=== PATIENT | female | born 1960 | race Two or more races ===

== ENCOUNTER 2016-06-10 17:25 | Emergency (ER) | payer MEDICARE, MEDICAID ==
--- NOTE | 2016-06-10 18:00 | ER Document Report ---
ED Medical Screen (RME) - General Stated Complaint: ABDOMINAL PAIN Mode of Arrival: Ambulatory Information source: Patient Notes: Patient presents complaining of left lower quadrant abdominal pain for the past 4 days. Patient does have nausea. Patient's had a fever of 101 at home. Patient was sent here to rule out diverticulitis. hx: Constipation, leukopenia, left-sided mastectomy I have greeted and performed a rapid initial assessment of this patient. A comprehensive ED assessment and evaluation of the patient, analysis of test results and completion of the medical decision making process will be conducted by additional ED providers. TRAVEL OUTSIDE OF THE [place] IN LAST 30 DAYS: No - Related Data Allergies/Adverse Reactions: iodine [Iodine] Allergy (Severe, Verified 04/27/16 13:58) Shortness of Breath Shellfish * [Shellfish] Allergy (Severe, Verified 04/27/16 13:58) Shortness of Breath levocetirizine [Levocetirizine] Allergy (Verified 04/27/16 13:58) lorazepam [From Ativan] Adverse Reaction (Severe, Verified 04/27/16 13:58) confused hydrocodone bitartrate [From Vicodin] Adverse Reaction (Verified 04/27/16 13:58) confused n and v Past Medical History - Past Medical History Cardiac Medical History: Reports: Hx Hypertension Denies: Hx Heart Attack Pulmonary Medical History: Reports: Hx COPD Denies: Hx Asthma, Hx Bronchitis, Hx Pneumonia Neurological Medical History: Denies: Hx Seizures Endocrine Medical History: Denies: Hx Diabetes Mellitus Type 2 Malignancy Medical History: Reports: Hx Breast Cancer Musculoskeltal Medical History: Denies Hx Arthritis Psychiatric Medical History: Reports: Hx Depression Past Surgical History: Reports: Hx Breast Surgery - L mastectomy, Hx Orthopedic Surgery - left knee - Immunizations Hx Diphtheria, Pertussis, Tetanus Vaccination: No Physical Exam - Vital signs Vitals: Temp Pulse Resp BP Pulse Ox 98.1 F 84 20 116/69 97 06/10/16 17:36 06/10/16 17:36 06/10/16 17:36 06/10/16 17:36 06/10/16 17:36 - Abdominal Tenderness: Tender - Left lower quadrant Course - Vital Signs Vital signs: Temp Pulse Resp BP Pulse Ox 98.1 F 84 20 116/69 97 06/10/16 17:36 06/10/16 17:36 06/10/16 17:36 06/10/16 17:36 06/10/16 17:36
[2016-06-10] MEDS ORDERED: ONDANSETRON 4 MG TAB.RAPDIS PO ONE (18:01)
[2016-06-10 18:54] LABS: ABSOLUTE EOSINOPHILS # (AUTO) 0.1 10^3/uL (0.0-0.6); ABSOLUTE LYMPHOCYTES (AUTO) 0.7 10^3/uL (0.5-4.7); ABSOLUTE MONOCYTES (AUTO) 0.5 10^3/uL (0.1-1.4); ABSOLUTE NEUT (AUTO) 3.3 10^3/uL (1.7-8.2); BASOPHILS % (AUTO) 0.2 % (0-2); EOSINOPHILS % (AUTO) 1.4 % (0-6); HEMATOCRIT 38.2 % (36.0-47.0); HEMOGLOBIN 12.4 g/dL (12.0-15.5); MEAN CORPUSCULAR HEMOGLOBIN 29.8 pg (27.0-33.4); MEAN CORPUSCULAR HGB CONC 32.4 g/dL (32.0-36.0); MEAN CORPUSCULAR VOLUME 92 fl (80-97); MONOCYTES % (AUTO) 9.8 % (3-13); RED BLOOD COUNT 4.15 10^6/uL (3.72-5.28); RED CELL DISTRIBUTION WIDTH 12.9 % (11.5-14.0); SEGMENTED NEUTROPHILS % (AUTO) 72.6 % (42-78); WHITE BLOOD COUNT 4.6 10^3/uL (4.0-10.5)
[2016-06-10 19:14] LABS: ALANINE AMINOTRANSFERASE 45 U/L (9-52); ALBUMIN 3.5 g/dL (3.5-5.0); ALKALINE PHOSPHATASE 124 U/L (38-126); ANION GAP 8 (5-19); ASPARTATE AMINO TRANSFERASE 29 U/L (14-36); BILIRUBIN,TOTAL 0.4 mg/dL (0.2-1.3); BLOOD UREA NITROGEN 8 mg/dL (7-20); CALCIUM 8.9 mg/dL (8.4-10.2); CARBON DIOXIDE 30 mmol/L (22-30); CHLORIDE 100 mmol/L (98-107); CREATININE RESULT 0.55 mg/dL (0.52-1.25); GLUCOSE 78 mg/dL (75-110); LIPASE 40.3 U/L (23-300); SODIUM 138.2 mmol/L (137-145); TOTAL PROTEIN 6.4 g/dL (6.3-8.2)
[2016-06-10] MEDS ORDERED: FENTANYL CITRATE INJ/PF 100 MCG/2 ML AMPUL IV ONE (20:06)
--- NOTE | 2016-06-10 20:43 | ER Document Report ---
ED GI/ - General Mode of Arrival: Ambulatory Information source: Patient TRAVEL OUTSIDE OF THE [place] IN LAST 30 DAYS: No - HPI Patient complains to provider of: Other - see narrative Location: [facility] Associated symptoms: Other - see narrative <FRANK PFEIFFER - Last Filed: 06/10/16 23:14> <EUSEBIA AGUAYO - Last Filed: 06/12/16 01:29> - General Chief Complaint: Abdominal Pain Stated Complaint: ABDOMINAL PAIN Notes: Patient is a 55-year-old female that presents to the emergency department today with complaints of left-sided abdominal pain. Patient states she was referred here from her manager purchasing, Dr. Soriano, for concerns for a flareup of her diverticulitis. Patient states she frequently makes homemade grapefruit juice and she believes she might have eaten some seeds from the grapefruit by accident. Patient states her highest fever over the last few days was 101 F. Patient states she has had left-sided abdominal pain for 5 days. Patient states she is constipated frequently and currently is now. Patient also states she has had vaginal discharge. Patient denies any vomiting, diarrhea, or blood in her urine. (FRANK PFEIFFER) - Related Data Allergies/Adverse Reactions: iodine [Iodine] Allergy (Severe, Verified 06/10/16 18:00) Shortness of Breath Shellfish * [Shellfish] Allergy (Severe, Verified 06/10/16 18:00) Shortness of Breath levocetirizine [Levocetirizine] Allergy (Verified 06/10/16 18:00) lorazepam [From Ativan] Adverse Reaction (Severe, Verified 06/10/16 18:00) confused hydrocodone bitartrate [From Vicodin] Adverse Reaction (Verified 06/10/16 18:00) confused n and v Past Medical History - General Information source: Patient, [facility] Records - Social History Smoking Status: Never Smoker Chew tobacco use (# tins/day): No Frequency of alcohol use: None Drug Abuse: None Lives with: Family Family History: Reviewed & Not Pertinent, CVA, DM, Hypertension, Malignancy - Uterus Patient has suicidal ideation: No Patient has homicidal ideation: No - Past Medical History Cardiac Medical History: Reports: Hx Hypertension Pulmonary Medical History: Reports: Hx COPD Malignancy Medical History: Reports: Hx Breast Cancer Psychiatric Medical History: Reports: Hx Depression Past Surgical History: Reports: Hx Breast Surgery - L mastectomy, Hx Orthopedic Surgery - left knee - Immunizations Hx Diphtheria, Pertussis, Tetanus Vaccination: No Hx Pneumococcal Vaccination: 05/25/00 <FRANK PFEIFFER - Last Filed: 06/10/16 23:14> Review of Systems - Review of Systems Constitutional: No symptoms reported EENT: No symptoms reported Cardiovascular: No symptoms reported Respiratory: No symptoms reported Gastrointestinal: See HPI, Abdominal pain, Nausea. denies: Diarrhea, Vomiting Genitourinary: See HPI, Discharge Female Genitourinary: No symptoms reported Musculoskeletal: No symptoms reported Skin: No symptoms reported Hematologic/Lymphatic: No symptoms reported Neurological/Psychological: No symptoms reported -: Yes All other systems reviewed and negative <FRANK PFEIFFER - Last Filed: 06/10/16 23:14> Physical Exam - Genitourinary External exam: Normal Biman[place] exam: Adnexal tenderness - left sided <FRANK PFEIFFER - Last Filed: 06/10/16 23:14> <EUSEBIA AGUAYO - Last Filed: 06/12/16 01:29> - Vital signs Vitals: Temp Pulse Resp BP Pulse Ox 98.1 F 84 20 116/69 97 06/10/16 17:36 06/10/16 17:36 06/10/16 17:36 06/10/16 17:36 06/10/16 17:36 (FRANK PFEIFFER) (EUSEBIA AGUAYO) - Notes Notes: Physical Exam: General: Alert, appears uncomfortable secondary to pain. HEENT: Normocephalic. Atraumatic. PERRL. Extraocular movements intact. Oropharynx clear. Neck: Supple. Non-tender. Respiratory: No respiratory distress. Clear and equal breath sounds bilaterally. Cardiovascular: Regular rate and rhythm. Abdominal: Left sided abdominal tenderness with palpation. No distension. Normal Bowel Sounds. Back: Non-tender. No deformity or step off. Extremities: Moves all four extremities. Upper extremities: Normal inspection. Non-tender. Normal color. Normal ROM. Normal temperature. Lower extremities: Normal inspection. Non-tender. No edema. Normal color. Normal ROM. Normal temperature. Neurological: Normal cognition. AAOx4. Normal speech. Psychological: Normal affect. Normal Mood. Skin: Warm. Dry. Normal color. (FRANK PFEIFFER) Course - Laboratory Result Diagrams: 06/10/16 18:40 06/10/16 18:40 <FRANK PFEIFFER - Last Filed: 06/10/16 23:14> - Laboratory Result Diagrams: 06/10/16 18:40 06/10/16 18:40 <EUSEBIA AGUAYO - Last Filed: 06/12/16 01:29> - Re-evaluation Re-evalutation: 06/10/16 23:43 I personally performed the services described in the documentation, reviewed and edited the documentation which was dictated to my scribe in my presence, and it accurately records my words and actions. Patient presents emergency from left lower quadrant abdominal pain. She has a history of irritable bowel syndrome and diverticulitis seen and evaluated at the manager purchasing office today and sent over for evaluation of left lower quadrant pain. She is cause intermittent fevers for a couple days with her really only 100.4 afebrile here left lower quadrant abdominal tenderness. Also describes some pain in what she calls her ovary on the left. Says she has not seen an [employer] physician in years. On examination left lower quadrant abdominal tenderness without guarding rebound rigidity on pelvic examination exquisite tenderness when palpating the left adnexa. No vaginal bleeding or discharge. The complete resolution of her pain with IV pain medication. She'll abdominal examinations no acute guarding rebound rigidity no elevated white count and no fever pelvic ultrasound cannot see the ovaries don't see anything and then a small fibroid. CT scan shows diverticulitis. Patient will be discharged home pain and nausea medication she has multiple allergies and says pain medication gives her itching headaches or nausea. She lists Vicodin as one of her allergies but states that she can take it just causes a headache but she is rather have a headache and abdominal pain so she agreed to take the night overrode on the computer. Also gave her nausea medication Flagyl follow-up with her GI doctor in one to 2 days and give her outpatient follow-up for [employer] discussed reasons for ED return sooner (EUSEBIA AGUAYO) - Vital Signs Vital signs: Temp Pulse Resp BP Pulse Ox 98.2 F 76 18 110/62 99 06/11/16 00:15 06/11/16 00:15 06/11/16 00:15 06/11/16 00:15 06/11/16 00:15 (FRANK PFEIFFER) (EUSEBIA AGUAYO) - Laboratory Laboratory results interpreted by me: 06/10/16 20:00 Urine Ketones TRACE H Ur Leukocyte Esterase TRACE H Urine Ascorbic Acid 20 H (EUSEBIA AGUAYO) Discharge <FRANK PFEIFFER - Last Filed: 06/10/16 23:14> <EUSEBIA AGUAYO - Last Filed: 06/12/16 01:29> - Discharge Clinical Impression: Pelvic pain Diverticulitis Qualifiers: Diverticulitis site: unspecified part of intestinal tract Diverticulitis bleeding: without bleeding Diverticulitis complication: without perforation or abscess Qualified Code(s): K57.92 - Diverticulitis of intestine, part unspecified, without perforation or abscess without bleeding Condition: Stable Disposition: HOME, SELF-CARE Additional Instructions: Diverticulitis You have been diagnosed as having diverticulitis. This is an inflammation of a small pouch attached to the colon, called a diverticulum. Many of these small pouches can form on the colon as you get older. They are often caused by constipation. When inflamed or infected, symptoms arise -- usually abdominal pain, constipation or diarrhea, fever, and blood in the stool. Severe diverticulitis may require hospitalization. More mild cases are usually treated with antibiotics and clear liquid diet. As you improve, a diet low in residue (one which forms little stool) is prescribed. When you are better, you should eat a high-fiber diet. Stool softeners ( like Metamucil) are usually recommended. Call the doctor or go to the hospital if there is increasing pain, vomiting , high fever, large amounts of blood passed, or if bowel movements cease. Pelvic Pain There are many causes of pain in the pelvic area. The cause could be the tubes, ovaries, uterus, intestines, appendix, pelvic muscles and connective tissue, or the urinary tract. The cause of your pelvic pain is not clear. However, it seems safe to treat you outside the hospital. If the pain sounds like a temporary problem, we sometimes wait to see if it goes away. Other patients may need additional tests, such as pelvic ultrasound or cultures. Conditions may change. Call us or come back for reexamination if any problems occur, such as: (1) Pain that becomes more severe, steady, or becomes concentrated in one specific area. Also, pain that is more severe with movement or coughing. (2) Vomiting that persists or becomes more frequent. (3) Blood in the vomitus, urine, or bowel movements. Blood in the stool may have a tarry or black appearance. (4) Shaking chills or fever greater than 100 degrees. (5) The abdomen becomes more distended or swollen. (6) Bowel movements cease. (7) Heavy vaginal bleeding. Follow-up with your GI doctor in one to 2 days return for increasing worsening or new symptoms also call the [employer] physician tomorrow to be seen in 3-5 days. Prescriptions: Hydrocodone/Acetaminophen [Ferguson 10-325 mg Tablet] 1 tab PO Q6 #15 tablet Metronidazole [Flagyl 500 mg Tablet] 500 mg PO Q6H #28 tablet Ondansetron [Zofran Odt 4 mg Tablet] 1 - 2 tab PO Q4H PRN #15 tab.rapdis PRN Reason: For Nausea/Vomiting Referrals: EMILY HELTON MD [ACTIVE STAFF] - Follow up in 3-5 days (Call in a.m. to be seen in 2-3 days return for increasing worsening or new symptoms) Scribe Documentation - Scribe Written by Aisha:: Aisha Laguerre, [id number] 06/10/16 acting as scribe for :: Moody <FRANK PFEIFFER - Last Filed: 06/10/16 23:14>
[2016-06-10 20:49] LABS: APPEARANCE,URINE CLEAR; BILIRUBIN,URINE NEGATIVE (NEGATIVE); GLUCOSE, URINE NEGATIVE (NEGATIVE); KETONES,URINE TRACE mg/dL (NEGATIVE); LEUKOCYTE ESTERASE,URINE TRACE (NEGATIVE); NITRITE,URINE NEGATIVE (NEGATIVE); PROTEIN,URINE NEGATIVE (NEGATIVE); URINE SPECIFIC GRAVITY 1.013; UROBILINOGEN,URINE NEGATIVE mg/dL (<2.0)
[2016-06-10] MEDS ORDERED: HYDROCODONE/ACETAMINOPHEN 5-325 MG TABLET PO ONE (23:31)
[2016-06-11 00:17] VITALS: BP 110/62
== END 2016-06-11 00:17 | disposition home or self-care (01) ==
LOC: ER 17:25
DX: K57.92 Diverticulitis of intestine, part unspecified, without perforation or abscess without bleeding (principal); R10.2 Pelvic and perineal pain; K59.00 Constipation, unspecified; R10.32 Left lower quadrant pain; R10.814 Left lower quadrant abdominal tenderness; N89.8 Other specified noninflammatory disorders of vagina; I10 Essential (primary) hypertension; J44.9 Chronic obstructive pulmonary disease, unspecified; Z85.3 Personal history of malignant neoplasm of breast; R11.0 Nausea; Z88.3 Allergy status to other anti-infective agents; Z91.013 Allergy to seafood; Z88.8 Allergy status to other drugs, medicaments and biological substances; Z87.19 Personal history of other diseases of the digestive system
CPT/HCPCS: 99284; 36415; 83690; 85025; 80053; 81001; 76830; 74176; A9270 ×2; J3010; 87040; S0119

== ENCOUNTER → 2016-06-25 | Outpatient (CLI) | payer MEDICARE, MEDICAID | LOC: RAD 19:37 | PROVIDERS: ATTEND Internal Medicine | DX: R51 Headache (principal); H93.19 Tinnitus, unspecified ear; H91.90 Unspecified hearing loss, unspecified ear | CPT/HCPCS: 70551 ==

== ENCOUNTER → 2016-10-06 | Outpatient (CLI) | payer MEDICARE, MEDICAID | LOC: WI 14:03 | PROVIDERS: ATTEND Internal Medicine Medical Oncology | DX: Z12.31 Encounter for screening mammogram for malignant neoplasm of breast (principal) | CPT/HCPCS: G0202-52 ==

== ENCOUNTER 2016-10-21 08:32 | Emergency (ER) | payer MEDICARE, MEDICAID ==
[2016-10-21] MEDS ORDERED: NORMAL SALINE 1000 ML 1,000 ML IV ONE (09:29)
[2016-10-21] MEDS ORDERED: ONDANSETRON HCL INJ/PF 4 MG/2 ML SDV IV ONE (09:29)
--- NOTE | 2016-10-21 09:33 | ER Document Report ---
ED General - General Chief Complaint: Nausea/Vomiting Stated Complaint: VOMITING/DIZZY Time Seen by Provider: 10/21/16 09:25 Mode of Arrival: Ambulatory Information source: Patient Notes: This is a 56-year-old female with a past medical history of breast cancer status post mastectomy and chemo/radiation 3 years ago who presents for complaints of nausea vomiting. She states that for the past 3 days she has had nausea and vomiting. She had her regular scheduled appointment this morning with and was noted to be weak and dry heaving in the office and so she was sent to the emergency department for possible IV fluids. Patient denies any fevers but she has had some diaphoresis intermittently over the past few days. She has had no diarrhea in fact she reports chronic constipation and her last bowel movement was last week. TRAVEL OUTSIDE OF THE [place] IN LAST 30 DAYS: No - Related Data Allergies/Adverse Reactions: iodine [Iodine] Allergy (Severe, Verified 06/10/16 18:00) Shortness of Breath Shellfish * [Shellfish] Allergy (Severe, Verified 06/10/16 18:00) Shortness of Breath levocetirizine [Levocetirizine] Allergy (Verified 06/10/16 18:00) lorazepam [From Ativan] Adverse Reaction (Severe, Verified 06/10/16 18:00) confused hydrocodone bitartrate [From Vicodin] Adverse Reaction (Verified 06/10/16 18:00) confused n and v Past Medical History - Social History Smoking Status: Unknown if Ever Smoked Family History: Reviewed & Not Pertinent, CVA, DM, Hypertension, Malignancy - Uterus Patient has suicidal ideation: No Patient has homicidal ideation: No - Past Medical History Cardiac Medical History: Reports: Hx Hypertension Denies: Hx Heart Attack Pulmonary Medical History: Reports: Hx COPD Denies: Hx Asthma, Hx Bronchitis, Hx Pneumonia Neurological Medical History: Denies: Hx Seizures Endocrine Medical History: Denies: Hx Diabetes Mellitus Type 2 Renal/ Medical History: Denies: Hx Peritoneal Dialysis Malignancy Medical History: Reports: Hx Breast Cancer Musculoskeltal Medical History: Denies Hx Arthritis Psychiatric Medical History: Reports: Hx Depression Past Surgical History: Reports: Hx Breast Surgery - L mastectomy, Hx Orthopedic Surgery - left knee - Immunizations Hx Diphtheria, Pertussis, Tetanus Vaccination: No Hx Pneumococcal Vaccination: 05/25/00 Review of Systems - Review of Systems Constitutional: See HPI. denies: Chills, Fever EENT: No symptoms reported Cardiovascular: No symptoms reported. denies: Chest pain Respiratory: No symptoms reported Gastrointestinal: See HPI. denies: Abdominal pain Genitourinary: No symptoms reported Skin: No symptoms reported Hematologic/Lymphatic: No symptoms reported Neurological/Psychological: No symptoms reported Physical Exam - Vital signs Vitals: Temp Pulse Resp BP Pulse Ox 97.7 F 68 16 137/71 H 100 10/21/16 08:39 10/21/16 08:39 10/21/16 08:39 10/21/16 08:39 10/21/16 08:39 - Notes Notes: PHYSICAL EXAMINATION: GENERAL: Thin frail adult female who is pleasant and conversant, and in no acute distress. HEAD: Atraumatic, normocephalic. EYES: Pupils equal round and reactive to light, extraocular movements intact, sclera anicteric, conjunctiva are normal. ENT: nares patent, oropharynx clear without exudates. Moist mucous membranes. NECK: Normal range of motion, supple without lymphadenopathy LUNGS: Breath sounds clear to auscultation bilaterally and equal. No wheezes rales or rhonchi. HEART: Regular rate and rhythm without murmurs ABDOMEN: Soft, nontender, normoactive bowel sounds. No guarding, no rebound. No masses appreciated. EXTREMITIES: Normal range of motion NEUROLOGICAL: Cranial nerves grossly intact. No gross focal motor or sensory deficits appreciated. PSYCH: Normal mood, normal affect. SKIN: Warm, Dry, normal turgor, no rashes or lesions noted. Course - Re-evaluation Re-evalutation: 10/21/16 10:57 Reevaluated. She states that she feels "so much better". We discussed her lab results and she is comfortable with discharge home. She will follow up with her primary care physician in her [employer] as scheduled. Return precautions were discussed. - Vital Signs Vital signs: Temp Pulse Resp BP Pulse Ox 97.7 F 68 16 137/71 H 100 10/21/16 08:39 10/21/16 08:39 10/21/16 08:39 10/21/16 08:39 10/21/16 08:39 - Laboratory Result Diagrams: 10/21/16 09:47 10/21/16 09:47 Laboratory results interpreted by me: 10/21/16 10/21/16 09:47 09:47 WBC 2.5 L Monocytes % 16.4 H Absolute Neutrophils 1.1 L Potassium 5.1 H Discharge - Discharge Clinical Impression: Dehydration Nausea & vomiting Qualifiers: Vomiting type: unspecified Vomiting Intractability: non-intractable Qualified Code(s): R11.2 - Nausea with vomiting, unspecified Condition: Stable Disposition: HOME, SELF-CARE Additional Instructions: VOMITING: Vomiting (or nausea without vomiting) can be caused by many other different problems. It can mean that something's wrong with the stomach, such as ulcers or inflammation or the intestinal tract, such as appendicitis. But it can also be a symptom of a problem that has nothing to do with the stomach or intestines. Vomiting is common with severe headaches, earaches, tonsillitis, and kidney infections, etc. We see it with pneumonia or heart attacks. Drugs can cause nausea and vomiting. Many abdominal problems cause vomiting; for example, gallstones, kidney stones, pancreatitis, and intestinal obstruction ( blocked bowels). In most cases, curing the vomiting depends on fixing the problem that caused it. For temporary relief, we may use an anti-nausea medicine. For home use, we can prescribe suppositories, chewable pills, pills that dissolve in the mouth, or liquid anti-nausea drugs. If the vomiting seems to be caused by a problem in the stomach, acid-suppressing drugs may be prescribed as well. It's important to avoid dehydration. Sip small amounts of clear liquids ( soft drinks, tea, broth, etc) . Try to take fluids frequently even if you are vomiting to prevent dehydration. Take increasing amounts of fluid and when liquids are being consumed successfully, advance to small amounts of bland food (toast, soups, mashed potatoes, etc.) until you are able to resume a regular diet. Avoid aspirin, tobacco, and alcohol. If the vomiting worsens, if the problem that's making you vomit worsens, or if there's evidence of bleeding in the stomach (such as black, tarry stool, or bloody or black vomit), you should return immediately. Also, return if abdominal pain worsens or becomes localized to one area or you develop high fever. Call your doctor if you aren't improved in 24 hours. VIRAL SYNDROME: The physician has diagnosed a viral infection. Viruses not only cause "colds," but can cause many different symptoms including generalized aching, fever, headache, cough, diarrhea, nausea, vomiting, and fatigue. The treatment, for the most part, is simply relief of symptoms. This means that antibiotics are usually not given. Rest, fluids, pain medications and, occasionally, medication for the specific symptoms that are most bothersome will be prescribed. Use good handwashing to avoid passing the virus to others. Shared toys should be cleaned with disinfectant. Clean the toilets, sinks, and counter surfaces in bathrooms. Launder clothing in hot water. Contact the physician if you develop any new or unusual symptoms such as severe headache, stiff neck, high fever, chest pain, productive cough, or shortness of breath. You should be rechecked if you don't see marked improvement within seven to 10 days. INTRAVENOUS (I V) FLUIDS: As part of your care today, you received intravenous (IV) fluids. IV fluids are administered to patients who are dehydrated or to those who have certain chemical (electrolyte) abnormalities that need correcting. ANTINAUSEA MEDICATION: You have been given a medication to suppress nausea and vomiting. This type of medication can be given as a shot, pill, or suppository. It will usually last for many hours. Pills and shots usually last six to eight hours. For the typical illness, only one or two doses of the medication may be necessary. Mild lightheadedness may occur. This type of medicine can cause drowsiness. Do not drive or operate dangerous machinery while under its influence. Do not mix with alcohol. See your doctor at once if you have muscle spasms or tightness, or uncontrollable motions (particularly of the neck, mouth, or jaw). Persistent vomiting or severe lightheadedness should also be evaluated by the physician. FOLLOW-UP CARE: If you have been referred to a physician for follow-up care, call the physician s office for an appointment as you were instructed or within the next two days. If you experience worsening or a significant change in your symptoms, notify the physician immediately or return to the Emergency Department at any time for re-evaluation.
[2016-10-21 09:50] LABS: ABSOLUTE EOSINOPHILS # (AUTO) 0.1 10^3/uL (0.0-0.6); ABSOLUTE LYMPHOCYTES (AUTO) 0.9 10^3/uL (0.5-4.7); ABSOLUTE MONOCYTES (AUTO) 0.4 10^3/uL (0.1-1.4); ABSOLUTE NEUT (AUTO) 1.1 10^3/uL (1.7-8.2); BASOPHILS % (AUTO) 0.9 % (0-2); EOSINOPHILS % (AUTO) 3.7 % (0-6); HEMATOCRIT 43.3 % (36.0-47.0); HEMOGLOBIN 14.4 g/dL (12.0-15.5); HGB HCT DIFFERENCE -0.1; LYMPHOCYTES % (AUTO) 34.2 % (13-45); MEAN CORPUSCULAR HGB CONC 33.2 g/dL (32.0-36.0); MEAN CORPUSCULAR VOLUME 91 fl (80-97); MONOCYTES % (AUTO) 16.4 % (3-13); RED BLOOD COUNT 4.79 10^6/uL (3.72-5.28); RED CELL DISTRIBUTION WIDTH 13.7 % (11.5-14.0); SEGMENTED NEUTROPHILS % (AUTO) 44.8 % (42-78); WHITE BLOOD COUNT 2.5 10^3/uL (4.0-10.5)
[2016-10-21 10:15] LABS: ALANINE AMINOTRANSFERASE 33 U/L (9-52); ALBUMIN 4.5 g/dL (3.5-5.0); ALKALINE PHOSPHATASE 107 U/L (38-126); ANION GAP 11 (5-19); ASPARTATE AMINO TRANSFERASE 22 U/L (14-36); BILIRUBIN,DIRECT 0.2 mg/dL (0.0-0.4); BILIRUBIN,TOTAL 0.6 mg/dL (0.2-1.3); BLOOD UREA NITROGEN 10 mg/dL (7-20); CARBON DIOXIDE 29 mmol/L (22-30); CHLORIDE 102 mmol/L (98-107); CREATININE RESULT 0.59 mg/dL (0.52-1.25); GLUCOSE 100 mg/dL (75-110); POTASSIUM 5.1 mmol/L (3.6-5.0); TOTAL PROTEIN 7.8 g/dL (6.3-8.2)
[2016-10-21 10:41] LABS: APPEARANCE,URINE CLEAR; BILIRUBIN,URINE NEGATIVE (NEGATIVE); GLUCOSE, URINE NEGATIVE (NEGATIVE); KETONES,URINE NEGATIVE (NEGATIVE); LEUKOCYTE ESTERASE,URINE NEGATIVE (NEGATIVE); NITRITE,URINE NEGATIVE (NEGATIVE); PROTEIN,URINE NEGATIVE (NEGATIVE); URINE SPECIFIC GRAVITY 1.017; UROBILINOGEN,URINE NEGATIVE mg/dL (<2.0)
[2016-10-21 11:10] VITALS: BP 113/62
== END 2016-10-21 11:10 | disposition home or self-care (01) ==
LOC: ER 08:32
DX: E86.0 Dehydration (principal); R11.2 Nausea with vomiting, unspecified; I10 Essential (primary) hypertension; J44.9 Chronic obstructive pulmonary disease, unspecified; Z85.3 Personal history of malignant neoplasm of breast; Z90.12 Acquired absence of left breast and nipple; Z91.013 Allergy to seafood
CPT/HCPCS: 99284; 96374; 36415; 85025; 80053; 81001; J2405

== ENCOUNTER → 2016-10-30 | Outpatient (CLI) | payer MEDICARE, MEDICAID ==
[2016-10-30 10:22] LABS: HEMATOCRIT 37.3 % (36.0-47.0); HEMOGLOBIN 12.6 g/dL (12.0-15.5); HGB HCT DIFFERENCE 0.5; MEAN CORPUSCULAR HEMOGLOBIN 30.5 pg (27.0-33.4); MEAN CORPUSCULAR HGB CONC 33.8 g/dL (32.0-36.0); MEAN CORPUSCULAR VOLUME 90 fl (80-97); RED BLOOD COUNT 4.13 10^6/uL (3.72-5.28); RED CELL DISTRIBUTION WIDTH 12.8 % (11.5-14.0)
[2016-10-30 10:45] LABS: ANION GAP 8 (5-19); BLOOD UREA NITROGEN 13 mg/dL (7-20); CALCIUM 9.2 mg/dL (8.4-10.2); CARBON DIOXIDE 28 mmol/L (22-30); CHLORIDE 104 mmol/L (98-107); CREATININE RESULT 0.54 mg/dL (0.52-1.25); GLUCOSE 91 mg/dL (75-110); POTASSIUM 4.4 mmol/L (3.6-5.0); SODIUM 140.1 mmol/L (137-145)
--- NOTE | 2016-10-30 11:16 | RADIOLOGY REPORT (SQ) ---
EXAM DESCRIPTION: CT ABD/PELVIS NO ORAL OR IV COMPLETED DATE/TIME: 10/30/2016 10:38 am REASON FOR STUDY: LEFT LOWER QUADRANT PAIN R10.32 LEFT LOWER QUADRANT PAIN R10.814 LEFT LOWER QUAD RANT ABDOMINAL TENDERNESS COMPARISON: 06/10/2016 TECHNIQUE: CT scan of the abdomen and pelvis performed without intravenous or oral contrast. Images reviewed with lung, soft tissue, and bone windows. Reconstructed coronal and sagittal MPR images revi ewed. All images stored on PACS. All CT scanners at this facility use dose modulation, iterative reconstruction, and/or weight based d osing when appropriate to reduce radiation dose to as low as reasonably achievable (ALARA). [facility]: Dose Right [facility]: CareDose [facility]: Dose Right [facility]: Teradose 4D [facility]: [employer] RADIATION DOSE: 2.93mGy. LIMITATIONS: None. FINDINGS: LOWER CHEST: No significant findings. No nodules or infiltrates. NON-CONTRASTED LIVER, SPLEEN, ADRENALS: Evaluation limited by lack of IV contrast. No identified sign ificant masses. PANCREAS: No masses. No peripancreatic inflammatory changes. GALLBLADDER: No identified stones by CT criteria. No inflammatory changes to suggest cholecystitis. RIGHT KIDNEY AND URETER: No suspicious masses. Assessment limited by lack of IV contrast. No signif icant calcifications. No hydronephrosis or hydroureter. LEFT KIDNEY AND URETER: No suspicious masses. Assessment limited by lack of IV contrast. Cortical a nd parapelvic cysts. Nonobstructing calculi. No hydronephrosis or hydroureter. AORTA AND RETROPERITONEUM: No aneurysm. No retroperitoneal masses or adenopathy. BOWEL AND PERITONEAL CAVITY: Subtle inflammation associated with proximal sigmoid colon segment conta ining diverticula, image 61, and series 601, image 28. No ascites or free air. APPENDIX: Not visualized. PELVIS, BLADDER, AND ABDOMINAL WALL:No abnormal masses. No free fluid. Bladder normal. BONES: No significant findings. OTHER: No other significant finding. IMPRESSION: Mild diverticulitis sigmoid colon. TECHNICAL DOCUMENTATION: JOB ID: [id number] Quality ID # [id number]: Final reports with documentation of one or more dose reduction techniques (e.g., Au tomated exposure control, adjustment of the mA and/or kV according to patient size, use of iterative reconstruction technique) 2010 [employer]- All Rights Reserved
== END ==
LOC: RAD 09:56
PROVIDERS: ATTEND Internal Medicine Gastroenterology
DX: R10.814 Left lower quadrant abdominal tenderness (principal); R10.32 Left lower quadrant pain; K57.30 Diverticulosis of large intestine without perforation or abscess without bleeding
CPT/HCPCS: 36415; 74176; 80048; 85027

== ENCOUNTER 2016-11-06 07:32 | Day surgery (SDC) | payer MEDICARE, MEDICAID ==
--- NOTE | 2016-10-28 10:57 | RADIOLOGY REPORT (SQ) ---
EXAM DESCRIPTION: CHEST PA/LATERAL COMPLETED DATE/TIME: 10/28/2016 10:46 am REASON FOR STUDY: PRE OP COMPARISON: Two-view chest 04/27/2016 EXAM PARAMETERS: NUMBER OF VIEWS: two views TECHNIQUE: Digital Frontal and Lateral radiographic views of the chest acquired. RADIATION DOSE: NA LIMITATIONS: none FINDINGS: LUNGS AND PLEURA: No opacities, masses or pneumothorax. No pleural effusion. MEDIASTINUM AND HILAR STRUCTURES: No masses or contour abnormalities. HEART AND VASCULAR STRUCTURES: Heart normal size. No evidence for failure. BONES: No acute findings. HARDWARE: Old surgical clips post left mastectomy. OTHER: No other significant finding. IMPRESSION: NO SIGNIFICANT RADIOGRAPHIC FINDING IN THE CHEST. TECHNICAL DOCUMENTATION: JOB ID: [id number] [employer]- All Rights Reserved
[2016-10-28 11:07] LABS: ABSOLUTE EOSINOPHILS # (AUTO) 0.1 10^3/uL (0.0-0.6); ABSOLUTE LYMPHOCYTES (AUTO) 0.8 10^3/uL (0.5-4.7); ABSOLUTE MONOCYTES (AUTO) 0.3 10^3/uL (0.1-1.4); ABSOLUTE NEUT (AUTO) 1.9 10^3/uL (1.7-8.2); BASOPHILS % (AUTO) 0.4 % (0-2); EOSINOPHILS % (AUTO) 2.5 % (0-6); HEMATOCRIT 40.1 % (36.0-47.0); HEMOGLOBIN 13.2 g/dL (12.0-15.5); HGB HCT DIFFERENCE -0.5; LYMPHOCYTES % (AUTO) 24.8 % (13-45); MEAN CORPUSCULAR HEMOGLOBIN 29.8 pg (27.0-33.4); MEAN CORPUSCULAR HGB CONC 32.9 g/dL (32.0-36.0); MEAN CORPUSCULAR VOLUME 90 fl (80-97); MONOCYTES % (AUTO) 10.9 % (3-13); RED BLOOD COUNT 4.44 10^6/uL (3.72-5.28); RED CELL DISTRIBUTION WIDTH 13.6 % (11.5-14.0); SEGMENTED NEUTROPHILS % (AUTO) 61.4 % (42-78); WHITE BLOOD COUNT 3.1 10^3/uL (4.0-10.5)
[2016-10-28 11:12] LABS: AMORPHOUS SEDIMENT,URINE TRACE /HPF; APPEARANCE,URINE CLOUDY; BILIRUBIN,URINE NEGATIVE (NEGATIVE); GLUCOSE, URINE NEGATIVE (NEGATIVE); KETONES,URINE NEGATIVE (NEGATIVE); LEUKOCYTE ESTERASE,URINE NEGATIVE (NEGATIVE); NITRITE,URINE NEGATIVE (NEGATIVE); PROTEIN,URINE NEGATIVE (NEGATIVE); URINE SPECIFIC GRAVITY 1.021; UROBILINOGEN,URINE NEGATIVE mg/dL (<2.0)
[2016-10-28 11:51] LABS: ALANINE AMINOTRANSFERASE 24 U/L (9-52); ALBUMIN 4.1 g/dL (3.5-5.0); ALKALINE PHOSPHATASE 100 U/L (38-126); ANION GAP 7 (5-19); ASPARTATE AMINO TRANSFERASE 24 U/L (14-36); BILIRUBIN,DIRECT 0.2 mg/dL (0.0-0.4); BILIRUBIN,TOTAL 0.3 mg/dL (0.2-1.3); BLOOD UREA NITROGEN 13 mg/dL (7-20); CALCIUM 9.2 mg/dL (8.4-10.2); CARBON DIOXIDE 31 mmol/L (22-30); CHLORIDE 102 mmol/L (98-107); CREATININE RESULT 0.53 mg/dL (0.52-1.25); Direct HDL 73 mg/dL (>40); GLUCOSE 86 mg/dL (75-110); POTASSIUM 4.8 mmol/L (3.6-5.0); SODIUM 140.3 mmol/L (137-145); TOTAL PROTEIN 7.2 g/dL (6.3-8.2); TRIGLYCERIDES 86 mg/dL (<150)
[2016-10-28 12:02] LABS: DIRECT LDL 104 mg/dL (<100)
--- NOTE | 2016-10-28 12:14 | EKG REPORT ---
SEVERITY:- ABNORMAL ECG - SINUS RHYTHM LEFT VENTRICULAR HYPERTROPHY : Confirmed by: Angeline Schulz MD 28-Oct-2016 12:14:18
[~2016-11-06 07:32] MED LIST: ACETAMINOPHEN 100 ML IV ONE; BUPIVACAINE HCL 0.5 % INJ/PF 30 ML SDV ONE; CEFAZOLIN 2 GM/D5W RTU 2 GM/50 ML RTUPB IV PRN; DEXAMETHASONE SOD PHOSPHATE INJ 4 MG/1 ML VIAL ONE; EPINEPHRINE INJ/PF 1 MG/1 ML AMPULE ONE; FENTANYL CITRATE INJ/PF 100 MCG/2 ML AMPUL ONE; FENTANYL CITRATE INJ/PF 250 MCG/5 ML AMPULE ONE; GLYCOPYRROLATE INJ 0.4 MG/2 ML VIAL ONE; KETOROLAC TROMETHAMINE 60 MG/2 ML SDV ONE; LACTATED RINGERS 1000 ML IV PRN; LIDOCAINE 0.5% INJ-PF (5 MG/ML) 50 ML SDV SUBCUT PRN; LIDOCAINE 2% INJ-PF (20 MG/ML) 10 ML AMPUL ONE; MIDAZOLAM 2 MG/2 ML INJ ONE; MORPHINE SULFATE 10 MG/ML INJ ONE; NEOSTIGMINE METHYLSULFATE 10 MG/10 ML VIAL ONE; ONDANSETRON HCL INJ/PF 4 MG/2 ML SDV ONE; PROPOFOL INJ 200 MG/20 ML VIAL IV ONE; ROCURONIUM BROMIDE INJ 50 MG/5 ML VIAL IV ONE; SUCCINYLCHOLINE CHLORIDE INJ 200 MG/10 ML VIAL ONE
--- NOTE | 2016-11-06 10:17 | Operative Report ---
Operative Report DATE OF SURGERY: 11/06/16 PREOPERATIVE DIAGNOSIS: Right full-thickness rotator cuff tear POSTOPERATIVE DIAGNOSIS: Completely intact rotator cuff. Type II SLAP tear. Early arthritic changes of the glenohumeral joint OPERATION: Right shoulder arthroscopic debridement with decompression and subpectoralis biceps tenodesis SURGEON: AYDE HARDIN ANESTHESIA: GA TISSUE REMOVED OR ALTERED: None COMPLICATIONS: None ESTIMATED BLOOD LOSS: 15 mL INTRAOPERATIVE FINDINGS: As above PROCEDURE: Patient received 1 g of IV Ancef. Patient then was taken to the operating room where she was induced and intubated in supine position. Patient then was secured in the beachchair position where the right shoulder was prepped and draped in a normal surgical fashion. Timeout done identifying the right shoulder as the correct site. Spinal needle was used to insert into the glenohumeral joint and I quickly noticed synovial fluid draining from the spinal needle. I then proceeded to distend the capsule with sterile saline solution. 11 blade was used to establish my posterior portal and I introduced the cannula into the glenohumeral joint. Once I got return of fluid I confirm proper placement so I inserted the camera. Under direct visualization I placed a spinal needle marked my anterior portal and used an 11 blade to establish a. I placed a purple cannula and then through the cannula was able to probe and proceed with my diagnostic scope which diffuse grade III chondromalacia humeral cartilage and focal grade III chondromalacia of the glenoid with intact labrum anterior, inferior and posterior. patient had a type II SLAP tear. To my attention to the footprint of the rotator cuff which showed to be intact with no partial tearing. At this point through the anterior portal I use arthroscopic scissors to do a tenotomy of the long head of the biceps at the attachment of the glenoid superiorly. I then used a 4.0 mm shaver to do debridement of the labrum, glenoid, humeral head. I proceeded then to remove fluid from the shoulder joint and redirected my scope into the subacromial space. I then established a lateral portal and between radiofrequency ablator and shaver I did a formal bursectomy. Rotator cuff did not show any bursal sided tear either. I exposed the acromion which showed a spur on the anterolateral edge. I delineated the edge of the acromion with the radiofrequency ablator. I used a 5.5 mm bur then to do a acromioplasty. Pictures were taken showing my resection. Once I was satisfied with my decompression and acromioplasty I proceeded to removed the instruments. A 1 inch incision was done just medial to the axillary fold dissection was done with Metzenbaum scissors and hemostasis was obtained with the Bovie. Able to then cut the fascia overlying the biceps and then hooked the long head of biceps with a 90 clamp. Was able then to use a fiber loop and suture 2 cm from the muscular tendinous junction and cut the remaining tendon. I used 2 Homans to reflect tissue on the side of the humerus. I used a 4 mm spade tip guidepin then to do my proximal cortex drilling into the intramedullary canal of the humerus. I fed the 2 ends of the fiber wire into the biceps tenodesis button as recommended by the manufacturing company. Pulled out the guidepin and then proceeded to insert the button into the intramedullary canal. I was able to successfully flipped the button and after releasing securing the biceps. I used a free needle the comes in the care and pass one of the FiberWire ends through the biceps one more time to further secure it. Once I since the biceps onto the humeral cortex I then proceeded to go several half hitch knots for added fixation. Instruments were removed and used bulb irrigation to wash the tissue. I proceeded to approximate the tissue with 2-0 Vicryl and close the skin with 3-0 nylon. The 2 of the portal sites were closed with 3-0 nylon as well. I placed Xeroform over the incisions and covered it with 4 x 4 dressing and ABD pads. Secured the dressing with Medipore tape. Patient's arm was placed in the sling and the patient then was placed in supine position extubated and sent to PACU in stable condition.
--- NOTE | 2016-11-06 10:20 | PDOC DISCHARGE SUMMARY ---
Discharge Summary (SDC) - Discharge Final Diagnosis: Right shoulder arthroscopic rotator cuff repair Date of Surgery: 11/06/16 Discharge Date: 11/06/16 Condition: Good Treatment or Instructions: Patient is instructed to follow up in 10-14 days. Patient instructed to remove dressing in 4 days then can shower and apply Band- Aids as needed. Patient to wear sling for comfort but okay to remove for shower and pendulum exercises. Pendulum exercises are instructed to be done 3 times a day ideally with breakfast, lunch, dinners and showers. Patient instructed to call if there is any signs of redness or drainage fevers or chills. Prescriptions: Docusate Sodium [Colace 100 mg Capsule] 100 mg PO BID #60 capsule Oxycodone HCl/Acetaminophen [Percocet 5-325 mg Tablet] 1 - 2 tab PO ASDIR PRN # 60 tablet PRN Reason: Referrals: VIDYA FORTUNE MD [Primary Care Provider] - Respiratory Treatments at Home: Deep Breathing/Coughing Discharge Activity: No Driving, No Lifting/Push/Pulling Home Care Assistance: None Needed Report the Following to Your Physician Immediately: Vomiting, Increase in Pain, Fever over 101 Degrees, Unusual Bleeding, Redness, Warmth, Drainage-Yellow, Drainage-Mohr, Drainage-Green, Drainage-Foul Smelling, Numbness, Visual Disturbance
[2016-11-06] MEDS ORDERED: DIPHENHYDRAMINE HCL 50 MG/ML VIAL IV PRN (11:09)
[2016-11-06] MEDS ORDERED: MORPHINE SULFATE 10 MG/ML INJ IV PRN (11:09)
[2016-11-06] MEDS ORDERED: PROMETHAZINE HCL INJ 25 MG/1 ML VIAL IV PRN ×2 (11:09)
[2016-11-06] MEDS ORDERED: FENTANYL CITRATE INJ/PF 100 MCG/2 ML AMPUL IV PRN ×3 (11:09)
[2016-11-06] MEDS ORDERED: MEPERIDINE HCL/PF INJ 25 MG/1 ML DISP.SYRIN IV PRN (11:09)
[2016-11-06] MEDS ORDERED: OXYCODONE-ACETAMINOPHEN 5-325 MG TABLET PO PRN ×2 (12:42)
[2016-11-06 14:28] VITALS: BP 145/84
== END 2016-11-06 14:05 | disposition home or self-care (01) ==
LOC: OROUT 07:32
PROVIDERS: ATTEND Orthopaedic Surgery
PROC: 0RBJ4ZZ Excision of Right Shoulder Joint, Percutaneous Endoscopic Approach (ICD-10-PCS; 2016-11-06)
PROC: 0LM30ZZ Reattachment of Right Upper Arm Tendon, Open Approach (ICD-10-PCS; principal; 2016-11-06 09:30)
DX: M25.511 Pain in right shoulder (principal); M75.121 Complete rotator cuff tear or rupture of right shoulder, not specified as traumatic; I10 Essential (primary) hypertension; D70.9 Neutropenia, unspecified; G43.909 Migraine, unspecified, not intractable, without status migrainosus; Z85.3 Personal history of malignant neoplasm of breast; Z79.899 Other long term (current) drug therapy
CPT/HCPCS: 24340; 93005; 36415; 84443; 85025; 80053; 81001; 80061; 71020; 93010; 29822; C1713; J2250; J3490 ×2; J1100; J0171; J1885; J3010 ×2; J0330; J2405; J2704; J0690; J0131; 1630; J2270

== ENCOUNTER 2016-11-30 09:41 | Emergency (ER) | payer MEDICARE, MEDICAID ==
[2016-11-30 09:48] VITALS: BP 164/95
--- NOTE | 2016-11-30 10:27 | ER Document Report ---
HPI - HPI Pain Level: 3 Notes: Patient with a history of arthroscopic right shoulder surgery on November 06 presents to the ED with continued infection to incision site of her right shoulder. Patient states that she was seen on [address] Dennis who prescribed Keflex for her infection for 5 days. Patient states that the odor remains and that she has not had any significant improvement but did develop a rash after 5 days that medication. Patient has not noticed any worsening redness or purulent discharge or streaking. She has not noticed any fever. She still eating and drink without any problems. Patient continues to partake in occupational therapy as scheduled. Patient has been using soap and water on the incision site. Patient believes she needs another medication for her infection. She is scheduled for an appointment on Thursday with Dr. Dennis. The discharge is reported to be clear. Patient does take medicine for anxiety, constipation, and medication for her breast cancer that she is now in remission of. No history of MRSA per patient. Denies any headache, dizziness, URI, sore throat, chest pain, palpitations, syncope, cough, wheeze, shortness breath, dyspnea, abdominal pain, nausea/vomiting/diarrhea, dysuria, or other rash. - ROS Notes: REVIEW OF SYSTEMS: CONSTITUTIONAL : Denies fever, chills, or sweats. Denies recent illness. EENT: Denies eye, ear, throat, or mouth pain or symptoms. Denies nasal or sinus congestion or discharge. Denies throat, tongue, or mouth swelling or difficulty swallowing. CARDIOVASCULAR: Denies chest pain. Denies palpitations or racing or irregular heart beat. Denies ankle edema. RESPIRATORY: Denies cough, cold, or chest congestion. Denies shortness of breath, difficulty breathing, or wheezing. GASTROINTESTINAL: Denies abdominal pain or distention. Denies nausea, vomiting , or diarrhea. Denies blood in vomitus, stools, or per rectum. Denies black, tarry stools. Denies constipation. GENITOURINARY: Denies difficulty urinating, painful urination, burning, frequency, blood in urine, or discharge. MUSCULOSKELETAL: see hpi SKIN: see hpi ALL OTHER SYSTEMS REVIEWED AND NEGATIVE. Dictation was performed using [employer] voice recognition software - CARDIOVASCULAR Cardiovascular: DENIES: Chest pain - REPRODUCTIVE Reproductive: DENIES: : - DERM Skin Color: Normal Past Medical History - Social History Smoking Status: Unknown if Ever Smoked Chew tobacco use (# tins/day): No Frequency of alcohol use: Occasional Drug Abuse: None Family History: Reviewed & Not Pertinent, CVA, DM, Hypertension, Malignancy - Uterus Patient has suicidal ideation: No Patient has homicidal ideation: No - Past Medical History Cardiac Medical History: Reports: Hx Hypertension Denies: Hx Heart Attack Pulmonary Medical History: Reports: Hx COPD Denies: Hx Asthma, Hx Bronchitis, Hx Pneumonia Neurological Medical History: Reports: Hx Migraine. Denies: Hx Seizures Endocrine Medical History: Denies: Hx Diabetes Mellitus Type 2 Renal/ Medical History: Denies: Hx Peritoneal Dialysis Malignancy Medical History: Reports: Hx Breast Cancer Musculoskeltal Medical History: Denies Hx Arthritis Psychiatric Medical History: Reports: Hx Depression - anxiety Past Surgical History: Reports: Hx Breast Surgery - L mastectomy, Hx Mastectomy - left, Hx Orthopedic Surgery - left knee, right shoulder - Immunizations Hx Diphtheria, Pertussis, Tetanus Vaccination: No Hx Pneumococcal Vaccination: 05/25/00 Vertical Provider Document - CONSTITUTIONAL Notes: PHYSICAL EXAMINATION: GENERAL: Well-appearing, well-nourished and in no acute distress. NECK: Normal range of motion, supple without lymphadenopathy LUNGS: Breath sounds clear to auscultation bilaterally and equal. No wheezes rales or rhonchi. HEART: Regular rate and rhythm without murmurs, rubs, gallops. Musculoskeletal: Rt shoulder in sling. LROM to passive/active. + tenderness to inferoanterior incision site near axilla. Mild erythema without purulent discharge, induration, or lymphangitis/streaking. No prox lymphadenopathy. Infection appears superficial and mild. No obvious wound dehiscense. Extremities: No cyanosis, clubbing, or edema b/l. Peripheral pulses 2+. Capillary refill less than 3 seconds. NEUROLOGICAL: Cranial nerves grossly intact. Normal speech, normal gait. Normal sensory, motor exams PSYCH: Normal mood, normal affect. SKIN: Warm, Dry, normal turgor, no rashes or lesions noted. see MSK above. - INFECTION CONTROL TRAVEL OUTSIDE OF THE [place] IN LAST 30 DAYS: No - RESPIRATORY O2 Sat by Pulse Oximetry: 99 Course - Re-evaluation Re-evalutation: 11/30/16 10:33 Patient is an afebrile, well-hydrated, 56-year-old female who presents to the ED with a mild, superficial, infection to the incision site is noted in exam. Patient was reported to develop a rash after 5 days of the Keflex. I will place her on doxycycline twice a day for the next 5 days. She is scheduled to meet with her orthopedic doctor in 3 days for recheck. The infection does not appear to be systemic, nor deep that would require incision and drainage or IV antibiotics at this time. Vitals are stable. PE otherwise unremarkable. Conservative measures for symptoms otherwise as reviewed. Keep consult with orthopedics. Recheck with your PCM this week. Return to the ED with any worsening/concerning symptoms as reviewed. Patient is in agreement. - Vital Signs Vital signs: Temp Pulse Resp BP Pulse Ox 97.5 F 86 18 164/95 H 99 11/30/16 09:42 11/30/16 09:42 11/30/16 09:42 11/30/16 09:42 11/30/16 09:42 Discharge - Discharge Clinical Impression: Superficial incisional surgical site infection Qualifiers: Encounter type: initial encounter Qualified Code(s): T81.4XXA - Infection following a procedure, initial encounter Condition: Stable Disposition: HOME, SELF-CARE Additional Instructions: Keep the skin clean with soap and water May apply triple antibiotic ointment such as bacitracin for the next day Take medication as directed use sunlight precautions Continue medications as directed Keep her scheduled appointment with orthopedics for recheck on Thursday Recheck with your PCM this week as well Return to the ED with any worsening symptoms and/or development of fever, headache, chest pain, palpitations, syncope, shortness of breath, trouble breathing, abdominal pain, n/v/d, muscle weakness/paralysis, numbness/tingling, abscess, purulent discharge, red streaks, or other worsening symptoms that are concerning to you. Prescriptions: Doxycycline Hyclate 100 mg PO BID #10 capsule Referrals: VIDYA FORTUNE MD [Primary Care Provider] - Follow up as needed AYDE LINTON MD [ACTIVE STAFF] - Follow up as needed
== END 2016-11-30 10:52 | disposition home or self-care (01) ==
LOC: ER 09:41
DX: T81.4XXA Infection following a procedure, initial encounter (principal); Y83.8 Other surgical procedures as the cause of abnormal reaction of the patient, or of later complication, without mention of misadventure at the time of the procedure; R21 Rash and other nonspecific skin eruption; I10 Essential (primary) hypertension; J44.9 Chronic obstructive pulmonary disease, unspecified; F41.9 Anxiety disorder, unspecified; K59.00 Constipation, unspecified; Z79.899 Other long term (current) drug therapy; Z85.3 Personal history of malignant neoplasm of breast
CPT/HCPCS: 99283

== ENCOUNTER → 2016-12-02 | Outpatient (CLI) | payer MEDICARE, MEDICAID ==
[2016-12-02 11:14] LABS: HEMATOCRIT 38.9 % (36.0-47.0); HEMOGLOBIN 12.8 g/dL (12.0-15.5); HGB HCT DIFFERENCE -0.5; MEAN CORPUSCULAR HEMOGLOBIN 29.6 pg (27.0-33.4); MEAN CORPUSCULAR HGB CONC 32.8 g/dL (32.0-36.0); MEAN CORPUSCULAR VOLUME 90 fl (80-97); RED BLOOD COUNT 4.32 10^6/uL (3.72-5.28); RED CELL DISTRIBUTION WIDTH 13.3 % (11.5-14.0)
[2016-12-02 11:23] LABS: WHITE BLOOD COUNT 1.9 10^3/uL (4.0-10.5)
[2016-12-02 11:32] LABS: ALANINE AMINOTRANSFERASE 42 U/L (9-52); ALBUMIN 4.1 g/dL (3.5-5.0); ALKALINE PHOSPHATASE 114 U/L (38-126); ANION GAP 8 (5-19); ASPARTATE AMINO TRANSFERASE 32 U/L (14-36); BILIRUBIN,DIRECT 0.2 mg/dL (0.0-0.4); BILIRUBIN,TOTAL 0.4 mg/dL (0.2-1.3); BLOOD UREA NITROGEN 9 mg/dL (7-20); CALCIUM 9.3 mg/dL (8.4-10.2); CARBON DIOXIDE 27 mmol/L (22-30); CHLORIDE 104 mmol/L (98-107); CHOLESTEROL 231.59 mg/dL (0-200); CREATININE RESULT 0.52 mg/dL (0.52-1.25); Direct HDL 74 mg/dL (>40); GLUCOSE 84 mg/dL (75-110); POTASSIUM 4.5 mmol/L (3.6-5.0); SODIUM 139.3 mmol/L (137-145); TOTAL PROTEIN 7.2 g/dL (6.3-8.2); TRIGLYCERIDES 108 mg/dL (<150)
[2016-12-02 11:33] LABS: BAND NEUTROPHILS % (MANUAL) 5 % (3-5); BASOPHILS % (MANUAL) 1 % (0-2); EOSINOPHILS % (MANUAL) 4 % (0-6); HYPOCHROMASIA SLIGHT; LYMPHOCYTES % (MANUAL) 36 % (13-45); PLATELET CLUMPS PRESENT; POLYCHROMASIA SLIGHT; TOTAL CELLS COUNTED 100; TOXIC GRANULATION SLIGHT
[2016-12-02 11:43] LABS: DIRECT LDL 124 mg/dL (<100)
[2016-12-03 16:47] LABS: PATH REVIEW PATHOLOGIST REVIEWED
== END ==
LOC: LAB 10:46
PROVIDERS: ATTEND Family Medicine Geriatric Medicine
DX: I10 Essential (primary) hypertension (principal); C50.919 Malignant neoplasm of unspecified site of unspecified female breast; E11.9 Type 2 diabetes mellitus without complications; Z79.899 Other long term (current) drug therapy
CPT/HCPCS: 36415; 80053; 80061; 84443; 85025

== ENCOUNTER 2016-12-04 10:37 | Emergency (ER) | payer MEDICARE, MEDICAID ==
--- NOTE | 2016-12-04 10:50 | ER Document Report ---
ED Medical Screen (RME) - General Chief Complaint: Abnormal Lab Results Stated Complaint: ABNORMAL LABS Time Seen by Provider: 12/04/16 10:48 Mode of Arrival: Ambulatory Information source: Patient Notes: Female presents to ED for low white count chronic neutropenia low temperature at home of 95. She had a surgery to her right axilla has a small open area at this time she states it had drainage that looked like pus last night. She is having pain site is not red no drainage noted at this time. She states she went to the medical doctor and they sent her to the emergency room to get IV antibiotics. I have greeted and performed a rapid initial assessment of this patient. A comprehensive ED assessment and evaluation of the patient, analysis of test results and completion of medical decision making process will be conducted by an additional ED providers. TRAVEL OUTSIDE OF THE [place] IN LAST 30 DAYS: No - Related Data Allergies/Adverse Reactions: iodine [Iodine] Allergy (Severe, Verified 12/04/16 10:46) Shortness of Breath levocetirizine [Levocetirizine] Allergy (Severe, Verified 12/04/16 10:46) rash Shellfish * [Shellfish] Allergy (Severe, Verified 12/04/16 10:46) Shortness of Breath tramadol Allergy (Severe, Verified 12/04/16 10:46) n and v lorazepam [From Ativan] Adverse Reaction (Severe, Verified 12/04/16 10:46) confused hydrocodone bitartrate [From Vicodin] Adverse Reaction (Verified 12/04/16 10:46) confused n and v Past Medical History - Past Medical History Cardiac Medical History: Reports: Hx Hypertension Denies: Hx Heart Attack Pulmonary Medical History: Reports: Hx COPD Denies: Hx Asthma, Hx Bronchitis, Hx Pneumonia Neurological Medical History: Reports: Hx Migraine. Denies: Hx Seizures Endocrine Medical History: Denies: Hx Diabetes Mellitus Type 2 Renal/ Medical History: Denies: Hx Peritoneal Dialysis Malignancy Medical History: Reports: Hx Breast Cancer Musculoskeltal Medical History: Denies Hx Arthritis Psychiatric Medical History: Reports: Hx Depression - anxiety Past Surgical History: Reports: Hx Breast Surgery - L mastectomy, Hx Mastectomy - left, Hx Orthopedic Surgery - left knee, right shoulder - Immunizations Hx Diphtheria, Pertussis, Tetanus Vaccination: No
[2016-12-04 12:01] LABS: HEMATOCRIT 40.5 % (36.0-47.0); HEMOGLOBIN 13.3 g/dL (12.0-15.5); HGB HCT DIFFERENCE -0.6; MEAN CORPUSCULAR HEMOGLOBIN 29.6 pg (27.0-33.4); MEAN CORPUSCULAR HGB CONC 32.9 g/dL (32.0-36.0); MEAN CORPUSCULAR VOLUME 90 fl (80-97); RED BLOOD COUNT 4.51 10^6/uL (3.72-5.28); RED CELL DISTRIBUTION WIDTH 13.2 % (11.5-14.0)
[2016-12-04 12:11] LABS: ALANINE AMINOTRANSFERASE 41 U/L (9-52); ALBUMIN 4.2 g/dL (3.5-5.0); ALKALINE PHOSPHATASE 120 U/L (38-126); ANION GAP 9 (5-19); ASPARTATE AMINO TRANSFERASE 30 U/L (14-36); BILIRUBIN,DIRECT 0.3 mg/dL (0.0-0.4); BILIRUBIN,TOTAL 0.6 mg/dL (0.2-1.3); BLOOD UREA NITROGEN 10 mg/dL (7-20); CALCIUM 9.5 mg/dL (8.4-10.2); CARBON DIOXIDE 29 mmol/L (22-30); CHLORIDE 101 mmol/L (98-107); GLUCOSE 88 mg/dL (75-110); POTASSIUM 4.4 mmol/L (3.6-5.0); SODIUM 138.9 mmol/L (137-145); TOTAL PROTEIN 7.3 g/dL (6.3-8.2)
[2016-12-04 12:37] LABS: APPEARANCE,URINE CLEAR; BILIRUBIN,URINE NEGATIVE (NEGATIVE); GLUCOSE, URINE NEGATIVE (NEGATIVE); KETONES,URINE NEGATIVE (NEGATIVE); LEUKOCYTE ESTERASE,URINE NEGATIVE (NEGATIVE); NITRITE,URINE NEGATIVE (NEGATIVE); PROTEIN,URINE NEGATIVE (NEGATIVE); URINE SPECIFIC GRAVITY 1.017; UROBILINOGEN,URINE NEGATIVE mg/dL (<2.0)
[2016-12-04 12:48] LABS: BAND NEUTROPHILS % (MANUAL) 3 % (3-5); BASOPHILS % (MANUAL) 1 % (0-2); EOSINOPHILS % (MANUAL) 5 % (0-6); LYMPHOCYTES % (MANUAL) 42 % (13-45); TOTAL CELLS COUNTED 100
[2016-12-04 12:49] LABS: OVALOCYTES SLIGHT; PLATELET CLUMPS PRESENT; POIKILOCYTOSIS SLIGHT; POLYCHROMASIA SLIGHT; TOXIC GRANULATION SLIGHT
--- NOTE | 2016-12-04 13:38 | ER Document Report ---
ED General - General Chief Complaint: Abnormal Lab Results Stated Complaint: ABNORMAL LABS Time Seen by Provider: 12/04/16 10:48 Mode of Arrival: Ambulatory TRAVEL OUTSIDE OF THE [place] IN LAST 30 DAYS: No - HPI Patient complains to provider of: Neutropenia Notes: Patient coming in for evaluation of neutropenia. Patient has chronic neutropenia currently is on antibiotics for a wound infection from a shoulder surgery patient is on doxycycline. States that her orthopedic surgeon is Dr. Neal not totally convinced that there is a wound infection. Patient states her temperature was 95 at home. Patient states her PCP who is new to Dr. Fortune performed lab work and was told to come to the ER for IV antibiotics at that she has neutropenia. Patient denies any other sick contacts denies any travel patient denies any changes any medication. Patient's critical care registered nurse is Dr. Mckeon patient denies any fever - Related Data Allergies/Adverse Reactions: iodine [Iodine] Allergy (Severe, Verified 12/04/16 10:46) Shortness of Breath levocetirizine [Levocetirizine] Allergy (Severe, Verified 12/04/16 10:46) rash Shellfish * [Shellfish] Allergy (Severe, Verified 12/04/16 10:46) Shortness of Breath tramadol Allergy (Severe, Verified 12/04/16 10:46) n and v lorazepam [From Ativan] Adverse Reaction (Severe, Verified 12/04/16 10:46) confused hydrocodone bitartrate [From Vicodin] Adverse Reaction (Verified 12/04/16 10:46) confused n and v Past Medical History - General Information source: Patient - Social History Smoking Status: Never Smoker Chew tobacco use (# tins/day): No Frequency of alcohol use: Occasional Drug Abuse: None Family History: Reviewed & Not Pertinent, CVA, DM, Hypertension, Malignancy - Uterus Patient has suicidal ideation: No Patient has homicidal ideation: No - Past Medical History Cardiac Medical History: Reports: Hx Hypertension Denies: Hx Heart Attack Pulmonary Medical History: Reports: Hx COPD Denies: Hx Asthma, Hx Bronchitis, Hx Pneumonia Neurological Medical History: Reports: Hx Migraine. Denies: Hx Seizures Endocrine Medical History: Denies: Hx Diabetes Mellitus Type 2 Renal/ Medical History: Denies: Hx Peritoneal Dialysis Malignancy Medical History: Reports: Hx Breast Cancer Musculoskeltal Medical History: Denies Hx Arthritis Psychiatric Medical History: Reports: Hx Depression - anxiety Past Surgical History: Reports: Hx Breast Surgery - L mastectomy, Hx Mastectomy - left, Hx Orthopedic Surgery - left knee, right shoulder - Immunizations Hx Diphtheria, Pertussis, Tetanus Vaccination: No Hx Pneumococcal Vaccination: 05/25/00 Review of Systems - Review of Systems Constitutional: Other - Neutropenia EENT: No symptoms reported Cardiovascular: No symptoms reported Respiratory: No symptoms reported Gastrointestinal: No symptoms reported Genitourinary: No symptoms reported Female Genitourinary: No symptoms reported Musculoskeletal: No symptoms reported Skin: No symptoms reported Hematologic/Lymphatic: No symptoms reported Neurological/Psychological: No symptoms reported -: Yes All other systems reviewed and negative Physical Exam - Vital signs Vitals: Temp Pulse Resp BP Pulse Ox 98.0 F 102 H 22 H 144/89 H 99 12/04/16 10:45 12/04/16 10:45 12/04/16 10:45 12/04/16 10:45 12/04/16 10:45 Interpretation: Normal - General General appearance: Appears well, Alert - HEENT Head: Normocephalic, Atraumatic Eyes: Normal Pupils: PERRL - Respiratory Respiratory status: No respiratory distress Chest status: Nontender Breath sounds: Normal Chest palpation: Normal - Cardiovascular Rhythm: Regular Heart sounds: Normal auscultation Murmur: No - Abdominal Inspection: Normal Distension: No distension Bowel sounds: Normal Tenderness: Nontender Organomegaly: No organomegaly - Back Back: Normal, Nontender - Extremities General upper extremity: Other - Patient's right shoulder is postsurgical and is in a sling with decreased range of motion did the cervical surgery. Patient does have a surgical wound in the axillary region with the anterior aspect of this showing some red beefy tissue there is no signs of drainage no expressible purulent material erythema looks more to be consistent with excessive scar tissue. No surrounding cellulitis. Left extremity unaffected General lower extremity: Normal inspection, Nontender, Normal color, Normal ROM , Normal temperature, Normal weight bearing. No: Grace's sign - Neurological Neuro grossly intact: Yes Cognition: Normal Orientation: AAOx4 [place] Coma Scale Eye Opening: Spontaneous Gen[place]va Coma Scale Verbal: Oriented Genoveva Coma Scale Motor: Obeys Commands [place] Coma Scale Total: 15 Speech: Normal Motor strength normal: LUE, RUE, LLE, RLE Sensory: Normal - Psychological Associated symptoms: Normal affect, Normal mood - Skin Skin Temperature: Warm Skin Moisture: Dry Skin Color: Normal Course - Re-evaluation Re-evalutation: 12/04/16 15:11 Discussion with the patient's critical care registered nurse Dr. Mckeon agrees at this time patient laboratory values are chronic for the patient may need for hospitalization for IV antibiotics at this time patient can continue her oral antibiotics. Patient agrees with this plan will be discharged home follow-up with primary care physician - Vital Signs Vital signs: Temp Pulse Resp BP Pulse Ox 98.4 F 76 16 150/75 H 97 12/04/16 13:46 12/04/16 13:46 12/04/16 13:46 12/04/16 13:46 12/04/16 13:46 - Laboratory Result Diagrams: 12/04/16 11:35 12/04/16 11:35 Laboratory results interpreted by me: 12/04/16 12/04/16 11:35 11:35 WBC 2.0 L Seg Neuts % (Manual) 38 L Abs Neuts (Manual) 0.8 L Urine Ascorbic Acid 40 H Discharge - Discharge Clinical Impression: Chronic neutropenia Superficial incisional surgical site infection Qualifiers: Encounter type: subsequent encounter Qualified Code(s): T81.4XXD - Infection following a procedure, subsequent encounter Condition: Good Disposition: HOME, SELF-CARE Additional Instructions: I discussed your blood results with your critical care registered nurse Dr. Mckeon at this time she does not think that there is any need for change in her treatment course please continue to take the antibiotics as prescribed there is no need for IV antibiotics at this time. Please follow-up with your orthopedic and critical care registered nurse specialist. Return to the ER if you have any concerning issues. Referrals: VIDYA FORTUNE MD [Primary Care Provider] - Follow up as needed
[2016-12-04 13:48] VITALS: BP 150/75
== END 2016-12-04 13:45 | disposition home or self-care (01) ==
LOC: ER 10:37
DX: T81.4XXD Infection following a procedure, subsequent encounter (principal); D70.9 Neutropenia, unspecified
CPT/HCPCS: 36415; 80053; 81001; 83605; 85025; 87040; 99283

== ENCOUNTER → 2017-06-02 | Outpatient (CLI) | payer MEDICARE, MEDICAID ==
[2017-06-02 09:17] LABS: ABSOLUTE LYMPHOCYTES (AUTO) 0.6 10^3/uL (0.5-4.7); ABSOLUTE MONOCYTES (AUTO) 0.3 10^3/uL (0.1-1.4); ABSOLUTE NEUT (AUTO) 1.1 10^3/uL (1.7-8.2); BASOPHILS % (AUTO) 0.6 % (0-2); HEMATOCRIT 36.6 % (36.0-47.0); HEMOGLOBIN 12.4 g/dL (12.0-15.5); LYMPHOCYTES % (AUTO) 28.4 % (13-45); MEAN CORPUSCULAR HEMOGLOBIN 30.1 pg (27.0-33.4); MEAN CORPUSCULAR HGB CONC 33.8 g/dL (32.0-36.0); MEAN CORPUSCULAR VOLUME 89 fl (80-97); MONOCYTES % (AUTO) 14.5 % (3-13); PLATELET COUNT 230 10^3/uL (150-450); RED CELL DISTRIBUTION WIDTH 13.4 % (11.5-14.0); SEGMENTED NEUTROPHILS % (AUTO) 54.5 % (42-78); TOTAL CELLS COUNTED % (AUTO) 100 %; WHITE BLOOD COUNT 2.1 10^3/uL (4.0-10.5)
[2017-06-02 09:42] LABS: ALANINE AMINOTRANSFERASE 25 U/L (9-52); ASPARTATE AMINO TRANSFERASE 31 U/L (14-36); CHOLESTEROL 205.95 mg/dL (0-200); TRIGLYCERIDES 70 mg/dL (<150)
[2017-06-02 09:53] LABS: DIRECT LDL 96 mg/dL (<100)
== END ==
LOC: OD 08:10
PROVIDERS: ATTEND Family Medicine Geriatric Medicine
DX: E78.5 Hyperlipidemia, unspecified (principal); Z79.899 Other long term (current) drug therapy
CPT/HCPCS: 36415; 80061; 84450; 84460; 85025

== ENCOUNTER → 2017-07-29 | Outpatient (CLI) | payer MEDICARE, MEDICAID ==
[2017-07-29 11:50] LABS: HEMATOCRIT 38.6 % (36.0-47.0); HEMOGLOBIN 12.9 g/dL (12.0-15.5); MEAN CORPUSCULAR HEMOGLOBIN 29.7 pg (27.0-33.4); MEAN CORPUSCULAR HGB CONC 33.3 g/dL (32.0-36.0); MEAN CORPUSCULAR VOLUME 89 fl (80-97); PLATELET COUNT 210 10^3/uL (150-450); RED BLOOD COUNT 4.33 10^6/uL (3.72-5.28); RED CELL DISTRIBUTION WIDTH 13.5 % (11.5-14.0); WHITE BLOOD COUNT 2.2 10^3/uL (4.0-10.5)
== END ==
LOC: LAB 11:38
PROVIDERS: ATTEND Physician Assistant Surgical
DX: K57.30 Diverticulosis of large intestine without perforation or abscess without bleeding (principal); R10.32 Left lower quadrant pain
CPT/HCPCS: 36415; 85027

== ENCOUNTER → 2017-07-30 | Outpatient (CLI) | payer MEDICARE, MEDICAID ==
--- NOTE | 2017-07-30 10:56 | RADIOLOGY REPORT (SQ) ---
EXAM DESCRIPTION: CT CERVICAL SPINE WITHOUT COMPLETED DATE/TIME: 07/30/2017 10:25 am REASON FOR STUDY: R10.32 LEFT LOWER QUADRANT PAIN K57.30 DVRTCLOS OF LG INT W/O PERFORATION O M54.2 CERVICALGIA R10.32 LEFT LOWER QUADRANT PAIN K57.30 DVRTCLOS OF LG INT W/O PERFORATION OR ABSCESS W /O BLE COMPARISON: None. TECHNIQUE: Axial images acquired through the cervical spine without intravenous contrast. Images re viewed with lung, soft tissue and bone windows. Reconstructed coronal and sagittal MPR images review ed. Images stored on PACS. All CT scanners at this facility use dose modulation, iterative reconstruction, and/or weight based d osing when appropriate to reduce radiation dose to as low as reasonably achievable (ALARA). [facility]: Dose Right [facility]: CareDose [facility]: Dose Right [facility]: Teradose 4D [facility]: [employer] RADIATION DOSE: CT Rad equipment meets quality standard of care and radiation dose reduction techniq ues were employed. CTDIvol: 13.0 mGy. DLP: 279 mGy-cm. mGy. LIMITATIONS: None. FINDINGS: ALIGNMENT: There is some mild loss of the normal cervical lordosis. MINERALIZATION: Normal. VERTEBRAL BODIES: No fractures or dislocation. DISCS: There is some mild decrease in the C5-C6 disc space heights with associated anterior osteophyt ic lipping. There is some minimal anterior osteophytic lipping at the C4-C5 level P FACETS, LATERAL MASSES, POSTERIOR ELEMENTS: No fractures. No dislocation. No acute findings. HARDWARE: None in the spine. VISUALIZED RIBS: No fractures. LUNG APICES AND SOFT TISSUES: There is a pleural-based spiculated mass in the right lung apex measuri ng 3.1 x 3.1 cm in diameter suspicious for a neoplastic process. A dedicated chest CT scan may be of value for further evaluation. OTHER: No other significant finding. IMPRESSION: Mild degenerative changes in the cervical spine as noted above. There is a pleural-base d spiculated mass in the right lung apex measuring 3.1 x 3.1 cm in diameter suspicious for neoplastic process. A dedicated chest CT scan may be of value for further evaluation. Other findings as noted above COMMENT: Pertinent findings on the imaging study reported as a CRITICAL RESULT to VIDYA FORTUNE MD at10:50 on 07/30/2017. Category of Critical Result: Right apical mass TECHNICAL DOCUMENTATION: JOB ID: [id number] Quality ID # [id number]: Final reports with documentation of one or more dose reduction techniques (e.g., Au tomated exposure control, adjustment of the mA and/or kV according to patient size, use of iterative reconstruction technique) 2010 [employer]- All Rights Reserved Reading location - IP/workstation name: [email or web address]
--- NOTE | 2017-07-30 11:07 | RADIOLOGY REPORT (SQ) ---
EXAM DESCRIPTION: CT ABD/PELVIS ORAL ONLY COMPLETED DATE/TIME: 07/30/2017 10:25 am REASON FOR STUDY: R10.32 M54.2 CERVICALGIA R10.32 LEFT LOWER QUADRANT PAIN K57.30 DVRTCLOS OF LG INT W/O PERFORATION OR ABSCESS W/O BLE COMPARISON: 10/30/2016 and 07/04/2014. TECHNIQUE: CT scan of the abdomen and pelvis performed with oral contrast and no intravenous contras t. Images reviewed with lung, soft tissue, and bone windows. Reconstructed coronal and sagittal MPR i mages reviewed. All images stored on PACS. All CT scanners at this facility use dose modulation, iterative reconstruction, and/or weight based d osing when appropriate to reduce radiation dose to as low as reasonably achievable (ALARA). [facility]: Dose Right [facility]: CareDose [facility]: Dose Right [facility]: Teradose 4D [facility]: [employer] RADIATION DOSE: CT Rad equipment meets quality standard of care and radiation dose reduction techniq ues were employed. CTDIvol: 3.0 mGy. DLP: 146 mGy-cm. mGy. LIMITATIONS: None. FINDINGS: LOWER CHEST: No significant findings. No nodules or infiltrates. NON-CONTRASTED LIVER, SPLEEN, ADRENALS: Evaluation limited by lack of IV contrast. No identified sign ificant masses. PANCREAS: No masses. No peripancreatic inflammatory changes. GALLBLADDER: No identified stones by CT criteria. No inflammatory changes to suggest cholecystitis. RIGHT KIDNEY AND URETER: No suspicious masses. Assessment limited by lack of IV contrast. No signif icant calcifications. No hydronephrosis or hydroureter. LEFT KIDNEY AND URETER: Stable surgical changes with stable cortical cysts. No suspicious masses. As sessment limited by lack of IV contrast. No significant calcifications. No hydronephrosis or hydr oureter. AORTA AND RETROPERITONEUM: No aneurysm. No retroperitoneal masses or adenopathy. BOWEL AND PERITONEAL CAVITY: No obvious masses or inflammatory changes. No free fluid. APPENDIX: Normal. PELVIS, BLADDER, AND ABDOMINAL WALL: No abnormal pelvic masses. No abdominal wall hernias. Bladder un remarkable. BONES: No significant findings. OTHER: No other significant finding. IMPRESSION: STABLE SURGICAL CHANGES IN THE LEFT KIDNEY WITH CORTICAL CYST. OTHERWISE NO SIGNIFICANT OR ACUTE ABDOMINAL PROCESS. TECHNICAL DOCUMENTATION: JOB ID: [id number] Quality ID # 436: Final reports with documentation of one or more dose reduction techniques (e.g., Au tomated exposure control, adjustment of the mA and/or kV according to patient size, use of iterative reconstruction technique) 2010 [employer]- All Rights Reserved Reading location - IP/workstation name: [email or web address]
== END ==
LOC: RAD 14:08
PROVIDERS: ATTEND Family Medicine Geriatric Medicine
DX: M54.2 Cervicalgia (principal); K57.30 Diverticulosis of large intestine without perforation or abscess without bleeding; R10.32 Left lower quadrant pain
CPT/HCPCS: 72125; 74176

== ENCOUNTER → 2017-08-12 | Outpatient (CLI) | payer MEDICAID, MEDICARE ==
--- NOTE | 2017-08-12 16:50 | RADIOLOGY REPORT (SQ) ---
EXAM DESCRIPTION: CT CHEST WITHOUT COMPLETED DATE/TIME: 08/12/2017 3:25 pm REASON FOR STUDY: R LUNG MASS R91.8 OTHER NONSPECIFIC ABNORMAL FINDING OF LUNG FIELD COMPARISON: Chest x-ray 10/28/2016 CT abdomen pelvis 07/30/2017 TECHNIQUE: CT scan performed of the chest without intravenous contrast. Images reviewed with lung, soft tissue and bone windows. Reconstructed coronal and sagittal MPR images reviewed. All images st ored on PACS. All CT scanners at this facility use dose modulation, iterative reconstruction, and/or weight based d osing when appropriate to reduce radiation dose to as low as reasonably achievable (ALARA). [facility]: Dose Right [facility]: CareDose [facility]: Dose Right [facility]: Teradose 4D [facility]: [employer] RADIATION DOSE: CT Rad equipment meets quality standard of care and radiation dose reduction techniq ues were employed. CTDIvol: 4.8 mGy. DLP: 184 mGy-cm. mGy. LIMITATIONS: No technical limitations. FINDINGS: LUNGS AND PLEURA: There is large spiculated mass in the right apex that measures 33 mm in longest oblique diameter. This abuts the pleural surface. This is best seen on image 7. On the gibson e image there is a 5 mm nodule seen posteriorly in the right lung. There is scarring in the left upp er lobe posterolaterally. There is an area pleural thickening/scarring in the left lung anterolatera lly with stranding toward the hilum. No other pulmonary masses are present. HILAR AND MEDIASTINAL STRUCTURES: No identified masses or abnormal nodes. No obvious aneurysm. HEART AND VASCULAR STRUCTURES: No aneurysm. No pericardial effusion. UPPER ABDOMEN: No significant findings. Limited exam. THYROID AND OTHER SOFT TISSUES: The thyroid gland appears to be enlarged, particularly in the right l obe. BONES: No significant finding. HARDWARE: None in the chest. OTHER: No other significant findings. IMPRESSION: 1. Large mass in the right apex as described. Highly concerning for neoplasm. 2. There is a slightly troubling area pleural thickening/ scarring in the left hemithorax anterolate rally which shows stranding to the left hilum. 3. Enlarged thyroid gland. TECHNICAL DOCUMENTATION: JOB ID: [id number] Quality ID # 436: Final reports with documentation of one or more dose reduction techniques (e.g., Au tomated exposure control, adjustment of the mA and/or kV according to patient size, use of iterative reconstruction technique) 2010 [employer]- All Rights Reserved Reading location - IP/workstation name: [email or web address]
== END ==
LOC: RAD 14:35
PROVIDERS: ATTEND Family Medicine Geriatric Medicine
DX: R91.8 Other nonspecific abnormal finding of lung field (principal)
CPT/HCPCS: 71250

== ENCOUNTER → 2017-08-18 | Outpatient (CLI) | payer MEDICAID, MEDICARE ==
--- NOTE | 2017-08-20 08:30 | RADIOLOGY REPORT (SQ) ---
EXAM DESCRIPTION: PET CT SKULL/THIGH COMPLETED DATE/TIME: 08/18/2017 11:10 pm REASON FOR STUDY: OTHER NONSPEC ABN FINDINGS OF LUNG FIELD R91.8 OTHER NONSPECIFIC ABNORMAL FINDING OF LUNG FIELD COMPARISON: CT chest abdomen pelvis 08/12/2017 CT abdomen pelvis 10/30/2016 PET-CT 11/13/2013 RADIONUCLIDE AND DOSE: 10.2 mCi F18 FDG The route of agent administration: Intravenous FASTING BLOOD SUGAR: 64 mg/dl CONTRAST TYPE AND DOSE: No CT contrast given. TECHNIQUE: Blood glucose level was verified. Above dose of FDG was injected intravenously. 2-D seg mented attenuation correction images were obtained from the base of the skull to the midthighs. Nonc ontrast CT images were obtained for attenuation correction and fusion with emission images. CT image s were performed without oral or intravenous contrast and are not sensitive for parenchymal lesions. A series of overlapping emission PET images were obtained. Images reviewed and manipulated at [facility] work station by the radiologist. Images stored on PACS. LIMITATIONS: None. FINDINGS: HEAD AND NECK: No areas of abnormal metabolic activity in the soft tissues of the head and neck. CHEST: The spiculated soft tissue density mass is present in the medial right upper lobe, 3.6 x 3.1 c m in size on image 54. This has SUV of 10.3 and likely represents a primary lung malignancy. In the anterior left upper lobe, deep to an old left mastectomy, a bandlike scar is present 1.6 x 1.4 cm in size on axial image 76. This has activity below baseline with 1.0 SUV, and is unchanged from 11/13/2013. 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 A non metabolic 5 mm smooth round nodule is present in the posterior right upper lobe on axial and im age 50. No metabolically active mediastinal lymph nodes are identified. ABDOMEN AND PELVIS: A less than 1 cm focus of increased metabolic activity with SUV 4.2 is present in the subdiaphragmatic right lobe liver. This difficult to visualize on axial image 103. This would be very difficult to biopsy percutaneously. PROXIMAL LOWER EXTREMITIES: No areas of abnormal metabolic activity in the soft tissues of the lower extremities. BONES: Non metabolic bone island in the right innominate bone axial image 166. ADDITIONAL CT FINDINGS: Old left mastectomy. Diffusely enlarged heterogeneous thyroid without increa sed uptake. OTHER: Liver background activity 1.95 SUV. Blood pool background activity 1.3 SUV. IMPRESSION: Malignant appearing medial right upper lobe mass with SUV of 10.3. No mediastinal hyper metabolic adenopathy. Tiny subcentimeter focus of increased uptake sub- diaphragmatic surface right lobe liver difficult to measure on the non contrasted CT images. This lesion would be very difficult to biopsy percutaneous ly TECHNICAL DOCUMENTATION: JOB ID: [id number] [employer]- All Rights Reserved Reading location - IP/workstation name: [facility]
== END ==
LOC: RAD 17:05
PROVIDERS: ATTEND Internal Medicine Medical Oncology
DX: R91.8 Other nonspecific abnormal finding of lung field (principal)
CPT/HCPCS: 78815; A9552

== ENCOUNTER 2017-08-20 09:02 | Day surgery (SDC) | payer MEDICARE, MEDICAID ==
[2017-08-20 09:58] LABS: HEMATOCRIT 37.7 % (36.0-47.0); HEMOGLOBIN 12.8 g/dL (12.0-15.5); MEAN CORPUSCULAR HGB CONC 33.9 g/dL (32.0-36.0); MEAN CORPUSCULAR VOLUME 89 fl (80-97); PLATELET COUNT 225 10^3/uL (150-450); RED BLOOD COUNT 4.26 10^6/uL (3.72-5.28); RED CELL DISTRIBUTION WIDTH 13.5 % (11.5-14.0)
[2017-08-20 10:13] LABS: BLOOD UREA NITROGEN 7 mg/dL (7-20)
[2017-08-20 10:22] LABS: INTERNATIONAL RATION (INR) 0.99; PROTHROMBIN TIME 13.8 SEC (11.4-15.4)
[2017-08-20 10:23] LABS: PARTIAL THROMBOPLASTIN TIME 31.6 SEC (23.5-35.8)
[2017-08-20 10:26] LABS: WHITE BLOOD COUNT 1.5 10^3/uL (4.0-10.5)
[2017-08-20] MEDS ORDERED: MIDAZOLAM 2 MG/2 ML INJ ONE (11:14)
[2017-08-20] MEDS ORDERED: FENTANYL CITRATE INJ/PF 100 MCG/2 ML AMPUL ONE (11:15)
[2017-08-20] MEDS ORDERED: LIDOCAINE 1% INJ-PF (10 MG/ML) 30 ML SDV ONE (11:41)
--- NOTE | 2017-08-20 12:35 | RADIOLOGY REPORT (SQ) ---
EXAM DESCRIPTION: CHEST SINGLE VIEW COMPLETED DATE/TIME: 08/20/2017 12:16 pm REASON FOR STUDY: POST RIGHT LUNG BIOPSY COMPARISON: Two-view chest 10/28/2016 PET-CT 07/21/2017 EXAM PARAMETERS: NUMBER OF VIEWS: One view. TECHNIQUE: Single frontal radiographic view of the chest acquired. RADIATION DOSE: NA LIMITATIONS: None. FINDINGS: LUNGS AND PLEURA: Film is immediately post biopsy of a medial right lung apex mass. No pn eumothorax. There is hyperinflation and hyperlucency of the right lung from obstructive disease. Benign scarring anterior left mid chest stable compared to PET-CT 08/18/2017. No pleural effusion. No pneumothorax. MEDIASTINUM AND HILAR STRUCTURES: No masses. Contour normal. HEART AND VASCULAR STRUCTURES: Moderate cardiomegaly BONES: No acute findings. HARDWARE: Left axillary clips post left mastectomy. OTHER: No other significant finding. IMPRESSION: No pneumothorax post right lung apical mass biopsy under CT guidance TECHNICAL DOCUMENTATION: JOB ID: [id number] [employer]- All Rights Reserved Reading location - IP/workstation name: [facility]-[email or web address]
[2017-08-20] MEDS ORDERED: TRAMADOL HCL 50 MG TABLET PO ONE (13:00)
--- NOTE | 2017-08-20 13:06 | RADIOLOGY REPORT (SQ) ---
EXAM DESCRIPTION: CT BIOPSY LUNG/MEDIASTINUM; CT NEEDLE PLACEMENT COMPLETED DATE/TIME: 08/20/2017 12:02 pm REASON FOR STUDY: OTHER NONSPECIFIC ABNORMAL FINDING OF LUNG FIELD R91.8 OTHER NONSPECIFIC ABNORMAL FINDING OF LUNG FIELD Z79.01 CUSTODIAL (CURRENT) USE OF ANTICOAGULANTS COMPARISON: PET-CT 08/18/2017 CT chest 08/12/2017 TECHNIQUE: CT guided biopsy of the medial right lung apical mass performed with IV pain control with fentanyl. CT Fluoroscopy Time: 6.[address] scanners at this facility use dose modulation, iterative reconstruction, and/or weight based d osing when appropriate to reduce radiation dose to as low as reasonably achievable (ALARA). [facility]: Dose Right [facility]: CareDose [facility]: Dose Right [facility]: Teradose 4D [facility]: [employer] RADIATION DOSE: 59 mGy. FINDINGS: The procedure was discussed with the patient and the patient agreed to the procedure. Prio r to the procedure, a time out was performed to verify the patient's identity and planned procedure. IV sedation was administered and physician direction by the registered nurse using 50 micrograms of f entanyl. Physiologic monitoring was provided before, during, and after sedation. The total sedation t melanie was 30 minutes. Documentation face to face time, the performing proceduralist, spent monitoring the patient: [address] scanning was performed to localize the percutaneous site for the biopsy approach. After sterile skin prep and local lidocaine for skin and deep tissue anesthesia, a coaxial biopsy nee dle was used to obtain 6 cores of tissue. The biopsy tract was embolized with a [employer] Closure dev ice. The biopsy tissue was submitted to the lab in formalin. There were no immediate complications on immediate post procedure CT fluoro or postprocedure chest x-ray. Pathology is pending at the time of dictation. IMPRESSION: CT GUIDED BIOPSY OF THE RIGHT APICAL LUNG MASS PERFORMED WITHOUT IMMEDIATE COMPLICATION. PATHOLOGY PENDING. COMMENT: Quality ID 145: Final reports for procedures using fluoroscopy that document radiation exp osure indices, or exposure time and number of fluorographic images (if radiation exposure indices are not available) Patient medication list reviewed: Yes- Quality ID# [id number]:Eligible professional attests to documenting i n the medical record they obtained, updated, or reviewed the patient's current medications.. TECHNICAL DOCUMENTATION: JOB ID: [id number] Quality ID# 436: Final reports with documentation of one or more dose reduction techniques (e.g., Aut omated exposure control, adjustment of the mA and/or kV according to patient size, use of iterative r econstruction technique) 2010 [employer]- All Rights Reserved Reading location - IP/workstation name: [facility]-RR2
--- NOTE | 2017-08-20 13:06 | RADIOLOGY REPORT (SQ) ---
EXAM DESCRIPTION: CT BIOPSY LUNG/MEDIASTINUM; CT NEEDLE PLACEMENT COMPLETED DATE/TIME: 08/20/2017 12:02 pm REASON FOR STUDY: OTHER NONSPECIFIC ABNORMAL FINDING OF LUNG FIELD R91.8 OTHER NONSPECIFIC ABNORMAL FINDING OF LUNG FIELD Z79.01 [facility] (CURRENT) USE OF ANTICOAGULANTS COMPARISON: PET-CT 08/18/2017 CT chest 08/12/2017 TECHNIQUE: CT guided biopsy of the medial right lung apical mass performed with IV pain control with fentanyl. CT Fluoroscopy Time: 6.[address] scanners at this facility use dose modulation, iterative reconstruction, and/or weight based d osing when appropriate to reduce radiation dose to as low as reasonably achievable (ALARA). [facility]: Dose Right [facility]: CareDose [facility]: Dose Right [facility]: Teradose 4D [facility]: [employer] RADIATION DOSE: 59 mGy. FINDINGS: The procedure was discussed with the patient and the patient agreed to the procedure. Prio r to the procedure, a time out was performed to verify the patient's identity and planned procedure. IV sedation was administered and physician direction by the registered nurse using 50 micrograms of f entanyl. Physiologic monitoring was provided before, during, and after sedation. The total sedation t melanie was 30 minutes. Documentation face to face time, the performing proceduralist, spent monitoring the patient: [address] scanning was performed to localize the percutaneous site for the biopsy approach. After sterile skin prep and local lidocaine for skin and deep tissue anesthesia, a coaxial biopsy nee dle was used to obtain 6 cores of tissue. The biopsy tract was embolized with a [employer] Closure dev ice. The biopsy tissue was submitted to the lab in formalin. There were no immediate complications on immediate post procedure CT fluoro or postprocedure chest x-ray. Pathology is pending at the time of dictation. IMPRESSION: CT GUIDED BIOPSY OF THE RIGHT APICAL LUNG MASS PERFORMED WITHOUT IMMEDIATE COMPLICATION. PATHOLOGY PENDING. COMMENT: Quality ID 145: Final reports for procedures using fluoroscopy that document radiation exp osure indices, or exposure time and number of fluorographic images (if radiation exposure indices are not available) Patient medication list reviewed: Yes- Quality ID# [id number]:Eligible professional attests to documenting i n the medical record they obtained, updated, or reviewed the patient's current medications.. TECHNICAL DOCUMENTATION: JOB ID: [id number] Quality ID# 436: Final reports with documentation of one or more dose reduction techniques (e.g., Aut omated exposure control, adjustment of the mA and/or kV according to patient size, use of iterative r econstruction technique) 2010 [employer]- All Rights Reserved Reading location - IP/workstation name: [facility]-RR2
--- NOTE | 2017-08-20 14:44 | RADIOLOGY REPORT (SQ) ---
EXAM DESCRIPTION: CHEST SINGLE VIEW COMPLETED DATE/TIME: 08/20/2017 2:26 pm REASON FOR STUDY: POST RIGHT LUNG BIOPSY 2 HR COMPARISON: Earlier same day. NUMBER OF VIEWS: One view. TECHNIQUE: Single frontal radiographic image of the chest acquired. LIMITATIONS: None. FINDINGS: LUNGS AND PLEURA: Stable appearance. No pneumothorax. MEDIASTINUM AND HEART: Stable heart size and mediastinal structures. BONY STRUCTURES: No acute findings. HARDWARE: None. OTHER: No other significant finding. IMPRESSION: No pneumothorax. TECHNICAL DOCUMENTATION: JOB ID: [id number] Reading location - IP/workstation name: [email or web address]
[2017-08-20 15:07] VITALS: BP 118/72
== END 2017-08-20 15:00 | disposition home or self-care (01) ==
LOC: RAD 09:02
PROVIDERS: ATTEND Internal Medicine Medical Oncology
PROC: 0BBK3ZX Excision of Right Lung, Percutaneous Approach, Diagnostic (ICD-10-PCS; principal; 2017-08-20)
DX: C34.91 Malignant neoplasm of unspecified part of right bronchus or lung (principal); R91.8 Other nonspecific abnormal finding of lung field; Z79.01 Long term (current) use of anticoagulants; Z85.3 Personal history of malignant neoplasm of breast; D70.9 Neutropenia, unspecified
CPT/HCPCS: 36415; 84520; 82565; 85027; 85610; 85730; 88342 ×2; 88341 ×2; 88305 ×2; 88313 ×2; 71045; 77012; 32405; J3010; J3490; A9270; J2250

== ENCOUNTER → 2017-09-23 | Outpatient (CLI) | payer MEDICARE, MEDICAID ==
--- NOTE | 2017-09-23 15:24 | RADIOLOGY REPORT (SQ) ---
EXAM DESCRIPTION: VENOUS UNILATERAL UPPER COMPLETED DATE/TIME: 09/23/2017 2:49 pm REASON FOR STUDY: RUE PAIN R60.9 EDEMA, UNSPECIFIED R52 PAIN, UNSPECIFIED COMPARISON: Chest x-ray and lung biopsy 08/20/2017 TECHNIQUE: Dynamic and static moses scale and color images acquired of the right arm venous system. S elected spectral images acquired with additional compression and augmentation maneuvers. The contrala teral subclavian vein and internal jugular vein were also imaged. Images stored on PACS. LIMITATIONS: None. FINDINGS: RIGHT INTERNAL JUGULAR VEIN: Normal phasicity, compression, augmentation. No visualized echogenic material on moses scale. No defects on color images. Comparison opposite side normal. SUBCLAVIAN VEIN: Normal compression, augmentation. No visualized echogenic material on moses scale. No defects on color images. Catheter is identified in the right subclavian vein without surrounding cl ot. AXILLARY VEIN: Normal compression, augmentation. No visualized echogenic material on moses scale. No d efects on color images. Catheter is identified in the right axillary vein without surrounding clot. BRACHIAL VEIN: Normal compression, augmentation. No visualized echogenic material on moses scale. No d efects on color images. Catheter is identified in the right brachial vein, without surrounding clot. BASILIC VEIN: Normal compression, augmentation. No visualized echogenic material on moses scale. No de fects on color images. CEPHALIC VEIN: Normal compression, augmentation. No visualized echogenic material on moses scale. No d efects on color images. OTHER: No other significant finding. LEFT SUBCLAVIAN VEIN AND INTERNAL JUGULAR VEIN: Normal phasicity, compression and augmentation. No visualized echogenic material on moses scale. No de fects on color images. IMPRESSION: No right upper extremity deep or superficial venous thrombosis. Right sided port is andrés ntified, without surrounding thrombus TECHNICAL DOCUMENTATION: JOB ID: [id number] [employer]- All Rights Reserved Reading location - IP/workstation name: [email or web address]-RR2
== END ==
LOC: SP 14:05
PROVIDERS: ATTEND Internal Medicine Medical Oncology
DX: M79.601 Pain in right arm (principal); R60.9 Edema, unspecified
CPT/HCPCS: 93971

== ENCOUNTER 2017-10-31 14:00 | Emergency (ER) | payer MEDICARE, MEDICAID ==
[2017-10-31] MEDS ORDERED: NORMAL SALINE 1000 ML 1,000 ML IV PRN (14:31)
[2017-10-31] MEDS ORDERED: DIPHENHYDRAMINE HCL 50 MG/ML VIAL IV ONE (14:32)
[2017-10-31] MEDS ORDERED: METOCLOPRAMIDE HCL INJ/PF 10 MG/2 ML SDV IV ONE (14:32)
--- NOTE | 2017-10-31 14:34 | ER Document Report ---
ED Medical Screen (RME) - General Chief Complaint: Nausea/Vomiting Stated Complaint: VOMITING Time Seen by Provider: 10/31/17 14:31 Mode of Arrival: Ambulatory Information source: Patient Notes: This is a 57-year-old female with a history of metastatic breast cancer status post chemotherapy on Thursday (followed by Dr. Mack) who presents to the emergency room with nausea, vomiting, fatigue and generalized weakness. Patient denies fever, chills, abdominal pain, shortness of breath or any bleeding. I have greeted and performed a rapid initial assessment of this patient. A comprehensive ED assessment and evaluation of the patient, analysis of test results and completion of medical decision making process we will be contacted by additional ED providers. TRAVEL OUTSIDE OF THE [place] IN LAST 30 DAYS: No - Related Data Allergies/Adverse Reactions: iodine [Iodine] Allergy (Severe, Verified 10/31/17 14:01) Shortness of Breath levocetirizine [Levocetirizine] Allergy (Severe, Verified 10/31/17 14:01) rash Shellfish * [Shellfish] Allergy (Severe, Verified 10/31/17 14:01) Shortness of Breath tramadol Allergy (Severe, Verified 10/31/17 14:01) n and v lorazepam [From Ativan] Adverse Reaction (Severe, Verified 10/31/17 14:01) confused hydrocodone bitartrate [From Vicodin] Adverse Reaction (Verified 10/31/17 14:01) confused n and v Past Medical History - Social History Chew tobacco use (# tins/day): No Frequency of alcohol use: None Drug Abuse: None - Past Medical History Cardiac Medical History: Denies: Hx Coronary Artery Disease, Hx Heart Attack, Hx Hypertension Pulmonary Medical History: Reports: Hx Pneumonia Denies: Hx Asthma, Hx Bronchitis, Hx COPD Neurological Medical History: Reports: Hx Migraine. Denies: Hx Cerebrovascular Accident, Hx Seizures Endocrine Medical History: Denies: Hx Diabetes Mellitus Type 2 Renal/ Medical History: Denies: Hx Peritoneal Dialysis Malignancy Medical History: Reports: Hx Breast Cancer Musculoskeltal Medical History: Denies Hx Arthritis Psychiatric Medical History: Reports: Hx Depression - anxiety Past Surgical History: Reports: Hx Breast Surgery - L mastectomy, Hx Mastectomy - left, Hx Orthopedic Surgery - left knee, right shoulder - Immunizations Hx Diphtheria, Pertussis, Tetanus Vaccination: No History of Influenza Vaccine for 02/2017 - 07/2017 Season: No Physical Exam - Vital signs Vitals: Temp Resp BP 98.4 F 20 165/87 H 10/31/17 14:06 10/31/17 14:06 10/31/17 14:06 Course - Vital Signs Vital signs: Temp Pulse Resp BP Pulse Ox 98.4 F 20 165/87 H 10/31/17 14:06 10/31/17 14:06 10/31/17 14:06 Doctor's Discharge - Discharge Referrals: ALIYAH MACK MD [Primary Care Provider] - Follow up as needed
--- NOTE | 2017-10-31 15:12 | ER Document Report ---
ED General - General Chief Complaint: Nausea/Vomiting Stated Complaint: VOMITING Time Seen by Provider: 10/31/17 14:31 Mode of Arrival: Ambulatory Notes: 57-year-old female presents emergency department with nausea, vomiting, diarrhea , dehydration over the last day. Patient has a history of metastatic breast cancer. Her last chemotherapy was 5 days ago. Patient follows up with Dr. Mack. Patient denies any fever or chills. She thinks that she might have picked up a virus. Patient states that she is not consuming as much fluids as she normally does. She states with the diarrhea she feels like she is getting overly dehydrated. Patient states that she is having a pressure sensation in the suprapubic area. She denies any increased urgency, increased frequency, dysuria, hematuria. Patient states that the pressure sensation could just be from the diarrhea she is having. TRAVEL OUTSIDE OF THE [place] IN LAST 30 DAYS: No - HPI Patient complains to provider of: Nausea, vomiting, diarrhea, dehydration Onset: This morning Onset/Duration: Gradual Quality of pain: Pressure Severity: None Pain Level: Denies Associated symptoms: Diarrhea, Nausea, Vomiting Exacerbated by: Denies Relieved by: Denies Similar symptoms previously: No Recently seen / treated by doctor: No - Related Data Allergies/Adverse Reactions: iodine [Iodine] Allergy (Severe, Verified 10/31/17 14:01) Shortness of Breath levocetirizine [Levocetirizine] Allergy (Severe, Verified 10/31/17 14:01) rash Shellfish * [Shellfish] Allergy (Severe, Verified 10/31/17 14:01) Shortness of Breath tramadol Allergy (Severe, Verified 10/31/17 14:01) n and v lorazepam [From Ativan] Adverse Reaction (Severe, Verified 10/31/17 14:01) confused hydrocodone bitartrate [From Vicodin] Adverse Reaction (Verified 10/31/17 14:01) confused n and v Past Medical History - General Information source: Patient - Social History Smoking Status: Never Smoker Chew tobacco use (# tins/day): No Frequency of alcohol use: None Drug Abuse: None Family History: Reviewed & Not Pertinent, CVA, DM, Hypertension, Malignancy Patient has suicidal ideation: No Patient has homicidal ideation: No - Past Medical History Cardiac Medical History: Denies: Hx Coronary Artery Disease, Hx Heart Attack, Hx Hypertension Pulmonary Medical History: Reports: Hx Pneumonia Denies: Hx Asthma, Hx Bronchitis, Hx COPD Neurological Medical History: Reports: Hx Migraine. Denies: Hx Cerebrovascular Accident, Hx Seizures Endocrine Medical History: Denies: Hx Diabetes Mellitus Type 2 Renal/ Medical History: Denies: Hx Peritoneal Dialysis Malignancy Medical History: Reports: Hx Breast Cancer Musculoskeltal Medical History: Denies Hx Arthritis Psychiatric Medical History: Reports: Hx Depression - anxiety Past Surgical History: Reports: Hx Breast Surgery - L mastectomy, Hx Mastectomy - left, Hx Orthopedic Surgery - left knee, right shoulder - Immunizations Hx Diphtheria, Pertussis, Tetanus Vaccination: No Hx Pneumococcal Vaccination: 05/25/00 Review of Systems - Review of Systems Constitutional: Malaise, Weakness. denies: Chills, Fever, Recent illness EENT: No symptoms reported Cardiovascular: No symptoms reported Respiratory: No symptoms reported Gastrointestinal: Diarrhea, Nausea, Vomiting, Poor fluid intake. denies: Abdomen distended, Abdominal pain, Black stools, Rectal bleeding Genitourinary: denies: Dysuria, Frequency, Hematuria, Urgency Female Genitourinary: No symptoms reported Musculoskeletal: No symptoms reported Skin: No symptoms reported Neurological/Psychological: No symptoms reported -: Yes All other systems reviewed and negative Physical Exam - Vital signs Vitals: Temp Resp BP 98.4 F 20 165/87 H 10/31/17 14:06 10/31/17 14:06 10/31/17 14:06 Interpretation: Normal - Notes Notes: PHYSICAL EXAMINATION: GENERAL: Cachetic and in no acute distress. HEAD: Atraumatic, normocephalic. EYES: Pupils equal round and reactive to light, extraocular movements intact, conjunctiva are normal. ENT: Nares patent, oropharynx clear without exudates. Moist mucous membranes. NECK: Normal range of motion, supple without lymphadenopathy LUNGS: Breath sounds clear to auscultation bilaterally and equal. No wheezes rales or rhonchi. HEART: Regular rate and rhythm without murmurs ABDOMEN: Soft, nontender, nondistended abdomen. No guarding, no rebound. No masses appreciated. Female : deferred Musculoskeletal: Normal range of motion, no pitting or edema. No cyanosis. NEUROLOGICAL: Cranial nerves grossly intact. Normal speech, normal gait. Normal sensory, motor exams PSYCH: Normal mood, normal affect. SKIN: Warm, Dry, normal turgor, no rashes or lesions noted. Course - Re-evaluation Re-evalutation: 10/31/17 17:08 On re-evaluation, patient is feeling better. Labs obtained. WBC elevated. I spoke with the patient's oncologist, Dr. Mack. Elevated WBC likely from recent chemotherapy. No fever. Vitals stable. Patient feeling better. Dr. Mack feels the patient can follow up Thursday as scheduled. Patient has nausea medication at home. Patient told to continue taking medication as directed, to follow up as scheduled, and to return for worsening symptoms or fever. Patient is agreeable with the plan of care. - Vital Signs Vital signs: Temp Pulse Resp BP Pulse Ox 98.4 F 20 165/87 H 10/31/17 14:06 10/31/17 14:06 10/31/17 14:06 - Laboratory Result Diagrams: 10/31/17 14:50 10/31/17 16:10 Laboratory results interpreted by me: 10/31/17 10/31/17 14:50 16:10 WBC 27.5 H Hgb 11.6 L Hct 35.1 L RDW 16.3 H Seg Neuts % (Manual) 94 H Lymphocytes % (Manual) 4 L Monocytes % (Manual) 1 L Abs Neuts (Manual) 25.9 H Chloride 108 H Calcium 8.2 L Total Bilirubin < 0.1 L Alkaline Phosphatase 134 H Total Protein 5.6 L Albumin 3.3 L Discharge - Discharge Clinical Impression: Nausea & vomiting Qualifiers: Vomiting type: unspecified Vomiting Intractability: unspecified Qualified Code( s): R11.2 - Nausea with vomiting, unspecified Disposition: HOME, SELF-CARE Additional Instructions: Continue taking medication as directed, follow-up with your oncologist on Thursday as scheduled, and return to emergency department for any worsening symptoms or fever. Referrals: ALIYAH MACK MD [ACTIVE STAFF] - Follow up as needed
[2017-10-31 15:48] LABS: HEMATOCRIT 35.1 % (36.0-47.0); HEMOGLOBIN 11.6 g/dL (12.0-15.5); MEAN CORPUSCULAR HEMOGLOBIN 29.8 pg (27.0-33.4); MEAN CORPUSCULAR HGB CONC 32.9 g/dL (32.0-36.0); MEAN CORPUSCULAR VOLUME 90 fl (80-97); PLATELET COUNT 245 10^3/uL (150-450); RED BLOOD COUNT 3.88 10^6/uL (3.72-5.28); RED CELL DISTRIBUTION WIDTH 16.3 % (11.5-14.0); WHITE BLOOD COUNT 27.5 10^3/uL (4.0-10.5)
[2017-10-31 16:10] LABS: ABSOLUTE LYMPHOCYTES# (MANUAL) 1.1 10^3/uL (0.5-4.7); ABSOLUTE MONOCYTES # (MANUAL) 0.3 10^3/uL (0.1-1.4); ABSOLUTE NEUTROPHILS# (MANUAL) 25.9 10^3/uL (1.7-8.2); BASOPHILS % (MANUAL) 0 % (0-2); EOSINOPHILS % (MANUAL) 1 % (0-6); LYMPHOCYTES % (MANUAL) 4 % (13-45); MONOCYTES % (MANUAL) 1 % (3-13); SEGMENTED NEUTROPHILS % (MAN) 94 % (42-78); TOTAL CELLS COUNTED 100
[2017-10-31 16:12] LABS: ANISOCYTOSIS 1+; OVALOCYTES SLIGHT; PLATELET COMMENT ADEQUATE; POIKILOCYTOSIS SLIGHT; TOXIC GRANULATION 1+
[2017-10-31 16:30] LABS: APPEARANCE,URINE CLEAR; BILIRUBIN,URINE NEGATIVE (NEGATIVE); COLOR,URINE YELLOW; GLUCOSE, URINE NEGATIVE (NEGATIVE); KETONES,URINE NEGATIVE (NEGATIVE); LEUKOCYTE ESTERASE,URINE NEGATIVE (NEGATIVE); NITRITE,URINE NEGATIVE (NEGATIVE); PROTEIN,URINE NEGATIVE (NEGATIVE); UROBILINOGEN,URINE NEGATIVE mg/dL (<2.0)
[2017-10-31 16:38] LABS: ALANINE AMINOTRANSFERASE 22 U/L (9-52); ALBUMIN 3.3 g/dL (3.5-5.0); ALKALINE PHOSPHATASE 134 U/L (38-126); ANION GAP 11 (5-19); ASPARTATE AMINO TRANSFERASE 16 U/L (14-36); BLOOD UREA NITROGEN 7 mg/dL (7-20); CALCIUM 8.2 mg/dL (8.4-10.2); CARBON DIOXIDE 25 mmol/L (22-30); CHLORIDE 108 mmol/L (98-107); GLUCOSE 88 mg/dL (75-110); POTASSIUM 3.9 mmol/L (3.6-5.0); SODIUM 143.6 mmol/L (137-145); TOTAL PROTEIN 5.6 g/dL (6.3-8.2)
[2017-10-31 16:39] LABS: BILIRUBIN,TOTAL < 0.1 mg/dL (0.2-1.3)
[2017-10-31 18:15] VITALS: BP 131/71
== END 2017-10-31 18:00 | disposition home or self-care (01) ==
LOC: ER 14:00
DX: R11.2 Nausea with vomiting, unspecified (principal); R19.7 Diarrhea, unspecified; R19.8 Other specified symptoms and signs involving the digestive system and abdomen; E86.0 Dehydration; R53.1 Weakness; D72.829 Elevated white blood cell count, unspecified; R53.81 Other malaise; C79.81 Secondary malignant neoplasm of breast; Z79.899 Other long term (current) drug therapy; Z91.013 Allergy to seafood; Z88.8 Allergy status to other drugs, medicaments and biological substances; Z88.5 Allergy status to narcotic agent
CPT/HCPCS: 99284; 96361; 96374; 96375; 36415; 83735; 85025; 80053; 81001; J1200; J2765; J7030

== ENCOUNTER → 2017-11-13 | Outpatient (CLI) | payer MEDICARE, MEDICAID ==
--- NOTE | 2017-11-13 13:14 | RADIOLOGY REPORT (SQ) ---
EXAM DESCRIPTION: ACUTE ABDOMEN SERIES COMPLETED DATE/TIME: 11/13/2017 11:31 am REASON FOR STUDY: R10.9 Unspecified abdominal pain COMPARISON: AP chest. 08/20/2017. CT of chest without contrast 08/12/2017. NUMBER OF VIEWS: Three views. TECHNIQUE: Frontal chest, supine abdomen and upright/decubitus abdomen radiographic images acquired. LIMITATIONS: None. FINDINGS: CHEST: There is persistent infiltrate in the left upper lobe. A previously noted right ap ical pleural mass is not well visualized as seen on prior CT 08/12/2017. Status post left mastectomy . Surgical clips left axilla. FREE AIR: None. No abnormal gas collections. BOWEL GAS PATTERN: Nonobstructive pattern. There are scattered air-fluid levels noted within nondila armida loops of colon and small bowel. The possibility of an ileus cannot be excluded. Radiopaque mate rial layering within bowel right lower quadrant could represent medication. CALCIFICATIONS: No suspi cious calcifications. HARDWARE: Surgical clips left flank. SOFT TISSUES: No gross mass or suggestion of organomegaly. BONES: No acute fracture. No worrisome bone lesions. OTHER: Right trans venous port with tip noted overlying SVC. Calcified phleboliths within the pelvis . IMPRESSION: Findings consistent with ileus. Chronic infiltrate left upper lobe. Status post left m astectomy. Right apical pleural mass. TECHNICAL DOCUMENTATION: JOB ID: [id number] [employer]- All Rights Reserved Reading location - IP/workstation name: [email or web address]
== END ==
LOC: OD 11:16
PROVIDERS: ATTEND Internal Medicine Medical Oncology
DX: R10.9 Unspecified abdominal pain (principal)
CPT/HCPCS: 74022

== ENCOUNTER 2017-11-21 13:22 | Emergency (ER) | payer MEDICARE, MEDICAID ==
[2017-11-21] MEDS ORDERED: ASPIRIN 81 MG TABLET, CHEWABLE PO ONE (13:41)
--- NOTE | 2017-11-21 13:52 | ER Document Report ---
ED Medical Screen (RME) - General Chief Complaint: Chest Pain Stated Complaint: CHEST PAIN,SHORT OF BREATH Time Seen by Provider: 11/21/17 13:40 Notes: 57-year-old female with breast cancer with metastasis to the lung that presents to the emergency department today with complaints of left-sided chest pain beginning on Thursday. Patient states her last chemotherapy treatment was Thursday. Patient describes the pain as sharp and states it began when she was walking up the steps and making her bed. Patient states her pain increases with breathing and she complains of dizziness. Patient denies any history of PE /DVT, usage of blood thinners, or leg swelling. I have greeted and performed a rapid initial assessment of this patient. A comprehensive ED assessment and evaluation of the patient, analysis of test results, and completion of the medical decision making process will be conducted by additional ED providers. Review of systems: Positive for shortness of breath, left-sided chest pain, dizziness. Negative for history of PE/DVT, usage of blood thinners, or leg swelling. Physical Exam: General: Alert, appears chronically ill, fraile. Cardiovascular: Mild tachycardic. HEENT: Normocephalic. Atraumatic. PERRLA. Extraocular movements intact. Oropharynx clear. Neck: Supple. Respiratory: No respiratory distress. Abdominal: Normal Inspection. No distension. Extremities: Moves all four extremities. Neurological: Normal cognition. AAOx4. Normal speech. Psychological: Normal affect. Normal Mood. Skin: Warm. Dry. Normal color. TRAVEL OUTSIDE OF THE [place] IN LAST 30 DAYS: No - Related Data Allergies/Adverse Reactions: iodine [Iodine] Allergy (Severe, Verified 11/21/17 13:48) Shortness of Breath levocetirizine [Levocetirizine] Allergy (Severe, Verified 11/21/17 13:48) rash Shellfish * [Shellfish] Allergy (Severe, Verified 11/21/17 13:48) Shortness of Breath lorazepam [From Ativan] Adverse Reaction (Severe, Verified 11/21/17 13:48) confused hydrocodone bitartrate [From Vicodin] Adverse Reaction (Verified 11/21/17 13:48) confused n and v Past Medical History - Social History Chew tobacco use (# tins/day): No Frequency of alcohol use: None Drug Abuse: None - Past Medical History Cardiac Medical History: Denies: Hx Coronary Artery Disease, Hx Heart Attack, Hx Hypertension Pulmonary Medical History: Reports: Hx Pneumonia Denies: Hx Asthma, Hx Bronchitis, Hx COPD Neurological Medical History: Reports: Hx Migraine. Denies: Hx Cerebrovascular Accident, Hx Seizures Endocrine Medical History: Denies: Hx Diabetes Mellitus Type 2 Renal/ Medical History: Denies: Hx Peritoneal Dialysis Malignancy Medical History: Reports: Hx Breast Cancer Musculoskeltal Medical History: Denies Hx Arthritis Psychiatric Medical History: Reports: Hx Depression - anxiety Past Surgical History: Reports: Hx Breast Surgery - L mastectomy, Hx Mastectomy - left, Hx Orthopedic Surgery - left knee, right shoulder - Immunizations Hx Diphtheria, Pertussis, Tetanus Vaccination: No History of Influenza Vaccine for 02/2017 - 07/2017 Season: No Physical Exam - Vital signs Vitals: Temp Pulse Resp BP Pulse Ox 98.7 F 101 H 24 H 120/69 95 11/21/17 13:33 11/21/17 13:33 11/21/17 13:33 11/21/17 13:33 11/21/17 13:33 Course - Vital Signs Vital signs: Temp Pulse Resp BP Pulse Ox 98.7 F 101 H 24 H 120/69 95 11/21/17 13:33 11/21/17 13:33 11/21/17 13:33 11/21/17 13:33 11/21/17 13:33 Doctor's Discharge - Discharge Referrals: ALIYAH MACK MD [Primary Care Provider] - Follow up as needed
--- NOTE | 2017-11-21 14:19 | ER Document Report ---
ED General - General Chief Complaint: Chest Pain Stated Complaint: CHEST PAIN,SHORT OF BREATH Time Seen by Provider: 11/21/17 13:40 Mode of Arrival: Ambulatory Information source: Patient Notes: 57 year old female with a history of breast cancer that has metastasis to the lung presents the emergency department with complaints of left-sided chest pain that is been ongoing for 3 days. Patient states is intermittent in nature. She describes the pain as a sharp and stabbing sensation. She states that exerting herself makes it worse. She states that walking up stairs will exacerbate the pain. She states that sitting still relieves the pain. Patient denies a history of coronary artery disease, hypertension, hyperlipidemia, smoking, family history of coronary artery disease, diabetes. Patient also denies a history of DVT, PE, calf pain. Patient is undergoing chemotherapy. Her last dose of chemotherapy was 5 days ago. TRAVEL OUTSIDE OF THE [place] IN LAST 30 DAYS: No - HPI Onset: Last week Onset/Duration: Gradual Quality of pain: Sharp, Stabbing Severity: Mild Pain Level: 2 Associated symptoms: None Exacerbated by: Movement, Walking Relieved by: Sitting Similar symptoms previously: No Recently seen / treated by doctor: No - Related Data Allergies/Adverse Reactions: iodine [Iodine] Allergy (Severe, Verified 11/21/17 13:48) Shortness of Breath levocetirizine [Levocetirizine] Allergy (Severe, Verified 11/21/17 13:48) rash Shellfish * [Shellfish] Allergy (Severe, Verified 11/21/17 13:48) Shortness of Breath lorazepam [From Ativan] Adverse Reaction (Severe, Verified 11/21/17 13:48) confused hydrocodone bitartrate [From Vicodin] Adverse Reaction (Verified 11/21/17 13:48) confused n and v Past Medical History - General Information source: Patient - Social History Smoking Status: Never Smoker Chew tobacco use (# tins/day): No Frequency of alcohol use: None Drug Abuse: None Family History: Reviewed & Not Pertinent, CVA, DM, Hypertension, Malignancy Patient has suicidal ideation: No Patient has homicidal ideation: No - Past Medical History Cardiac Medical History: Denies: Hx Coronary Artery Disease, Hx Heart Attack, Hx Hypertension Pulmonary Medical History: Reports: Hx Pneumonia Denies: Hx Asthma, Hx Bronchitis, Hx COPD Neurological Medical History: Reports: Hx Migraine. Denies: Hx Cerebrovascular Accident, Hx Seizures Endocrine Medical History: Denies: Hx Diabetes Mellitus Type 2 Renal/ Medical History: Denies: Hx Peritoneal Dialysis Malignancy Medical History: Reports: Hx Breast Cancer Musculoskeltal Medical History: Denies Hx Arthritis Psychiatric Medical History: Reports: Hx Depression - anxiety Past Surgical History: Reports: Hx Breast Surgery - L mastectomy, Hx Mastectomy - left, Hx Orthopedic Surgery - left knee, right shoulder - Immunizations Hx Diphtheria, Pertussis, Tetanus Vaccination: No Hx Pneumococcal Vaccination: 05/25/00 Review of Systems - Review of Systems Constitutional: No symptoms reported EENT: No symptoms reported Cardiovascular: Chest pain Respiratory: No symptoms reported Gastrointestinal: No symptoms reported Genitourinary: No symptoms reported Musculoskeletal: No symptoms reported Skin: No symptoms reported Neurological/Psychological: No symptoms reported -: Yes All other systems reviewed and negative Physical Exam - Vital signs Vitals: Temp Pulse Resp BP Pulse Ox 98.7 F 101 H 24 H 120/69 95 11/21/17 13:33 11/21/17 13:33 11/21/17 13:33 11/21/17 13:33 11/21/17 13:33 Interpretation: Tachycardic - Notes Notes: PHYSICAL EXAMINATION: GENERAL: Cachectic, frail appearing. HEAD: Atraumatic, normocephalic. EYES: Pupils equal round and reactive to light, extraocular movements intact, conjunctiva are normal. ENT: Nares patent, oropharynx clear without exudates. Moist mucous membranes. NECK: Normal range of motion, supple without lymphadenopathy LUNGS: Breath sounds clear to auscultation bilaterally and equal. No wheezes rales or rhonchi. HEART: Regular rate and rhythm without murmurs. No anterior chest wall tenderness to palpation. ABDOMEN: Soft, nontender, nondistended abdomen. No guarding, no rebound. No masses appreciated. Female : deferred Musculoskeletal: Normal range of motion, no pitting or edema. No cyanosis. NEUROLOGICAL: Cranial nerves grossly intact. Normal speech, normal gait. Normal sensory, motor exams PSYCH: Normal mood, normal affect. SKIN: Warm, Dry, normal turgor, no rashes or lesions noted. Course - Re-evaluation Re-evalutation: 11/21/17 17:46 Labs and imaging obtained. Troponin is negative. CXR does not show an acute process. VQ scan done. Low probability for PE. I spoke with the patient's oncologist, . She recommends a second troponin and starting on coumadin 2mg QHS. If the patient is not on pain mendication, she recommends starting Tramadol. 11/21/17 18:57 Second troponin is negative. On re-evaluation, patient is feeling better. Chest pain resolved. I will discharge the patient home on coumadin. Patient already taking tramadol. Patient instructed to follow-up with her oncologist this week , to take the medication prescribed as directed, and to return to the emergency department for any worsening symptoms. - Vital Signs Vital signs: Temp Pulse Resp BP Pulse Ox 98.7 F 101 H 23 H 140/83 H 97 11/21/17 13:33 11/21/17 13:33 11/21/17 17:01 11/21/17 17:00 11/21/17 17:01 - Laboratory Result Diagrams: 11/21/17 14:06 11/21/17 14:06 Laboratory results interpreted by me: 11/21/17 11/21/17 14:06 14:06 WBC 2.4 L RDW 15.7 H Absolute Neutrophils 1.5 L Carbon Dioxide 31 H Glucose 112 H Alkaline Phosphatase 132 H - EKG Interpretation by Me Additional EKG results interpreted by me: 11/21/17 18:58 EKG: Ventricular rate 93, WI interval 148, QRS duration 76, QTc 463, sinus rhythm, left axis deviation, no ischemic changes Discharge - Discharge Clinical Impression: Chest pain Qualifiers: Chest pain type: unspecified Qualified Code(s): R07.9 - Chest pain, unspecified Disposition: HOME, SELF-CARE Instructions: Chest Pain of Unclear Cause ([facility]) Prescriptions: Warfarin Sodium [Coumadin 2 mg Tablet] 2 mg PO QHS #30 tablet Referrals: ALIYAH MACK MD [Primary Care Provider] - Follow up as needed
[2017-11-21 14:24] LABS: ABSOLUTE LYMPHOCYTES (AUTO) 0.6 10^3/uL (0.5-4.7); ABSOLUTE MONOCYTES (AUTO) 0.3 10^3/uL (0.1-1.4); ABSOLUTE NEUT (AUTO) 1.5 10^3/uL (1.7-8.2); EOSINOPHILS % (AUTO) 0.9 % (0-6); HEMATOCRIT 38.7 % (36.0-47.0); HEMOGLOBIN 13.2 g/dL (12.0-15.5); LYMPHOCYTES % (AUTO) 24.8 % (13-45); MEAN CORPUSCULAR HEMOGLOBIN 30.8 pg (27.0-33.4); MEAN CORPUSCULAR VOLUME 91 fl (80-97); MONOCYTES % (AUTO) 10.4 % (3-13); PLATELET COUNT 276 10^3/uL (150-450); RED BLOOD COUNT 4.27 10^6/uL (3.72-5.28); RED CELL DISTRIBUTION WIDTH 15.7 % (11.5-14.0); SEGMENTED NEUTROPHILS % (AUTO) 62.9 % (42-78); TOTAL CELLS COUNTED % (AUTO) 100 %; WHITE BLOOD COUNT 2.4 10^3/uL (4.0-10.5)
[2017-11-21 14:40] LABS: INTERNATIONAL RATION (INR) 0.94; PROTHROMBIN TIME 13.1 SEC (11.4-15.4)
[2017-11-21 14:45] LABS: ALANINE AMINOTRANSFERASE 30 U/L (9-52); ALBUMIN 4.3 g/dL (3.5-5.0); ALKALINE PHOSPHATASE 132 U/L (38-126); ANION GAP 12 (5-19); ASPARTATE AMINO TRANSFERASE 30 U/L (14-36); BILIRUBIN,DIRECT 0.3 mg/dL (0.0-0.4); BILIRUBIN,TOTAL 0.3 mg/dL (0.2-1.3); BLOOD UREA NITROGEN 14 mg/dL (7-20); CARBON DIOXIDE 31 mmol/L (22-30); CHLORIDE 98 mmol/L (98-107); GLUCOSE 112 mg/dL (75-110); POTASSIUM 4.4 mmol/L (3.6-5.0); SODIUM 140.8 mmol/L (137-145); TOTAL PROTEIN 7.4 g/dL (6.3-8.2)
--- NOTE | 2017-11-21 14:57 | RADIOLOGY REPORT (SQ) ---
EXAM DESCRIPTION: CHEST 2 VIEWS COMPLETED DATE/TIME: 11/21/2017 2:35 pm REASON FOR STUDY: chest pain COMPARISON: 04/27/2016 EXAM PARAMETERS: NUMBER OF VIEWS: two views TECHNIQUE: Digital Frontal and Lateral radiographic views of the chest acquired. RADIATION DOSE: NA LIMITATIONS: none FINDINGS: LUNGS AND PLEURA: Minimal opacity in the left upper lobe likely scar from previous density seen in 2016. Right lung is clear. MEDIASTINUM AND HILAR STRUCTURES: No masses or contour abnormalities. HEART AND VASCULAR STRUCTURES: Heart normal size. No evidence for failure. BONES: No acute findings. HARDWARE: Venous access catheter unchanged. OTHER: Left mastectomy with left axillary clips. IMPRESSION: Likely left upper lobe scar. No acute findings. TECHNICAL DOCUMENTATION: JOB ID: [id number] [employer]- All Rights Reserved Reading location - IP/workstation name: [email or web address]
[2017-11-21] MEDS ORDERED: ONDANSETRON 4 MG TAB.RAPDIS PO ONE (16:34)
[2017-11-21] MEDS ORDERED: NORMAL SALINE 1000 ML 1,000 ML IV ONE (16:35)
--- NOTE | 2017-11-21 16:57 | RADIOLOGY REPORT (SQ) ---
EXAM DESCRIPTION: NM LUNG VENT/PERF SCAN COMPLETED DATE/TIME: 11/21/2017 4:34 pm REASON FOR STUDY: SOB, chest pain COMPARISON: 11/21/2017 chest radiograph and 08/12/[address] RADIONUCLIDE AND DOSE: 5.42 millicuries TC-99m MAA Intravenous 31.8 millicuries TC-99m DTPA Inhaled aerosol TECHNIQUE: Eight views of the lungs acquired post ventilation of DTPA aerosol. Eight matching views of the lungs acquired following injection of MAA. LIMITATIONS: None. FINDINGS: VENTILATION: Symmetric and homogeneous distribution of DTPA aerosol during ventilatory pha se. No significant areas of photopenia. PERFUSION: Perfusion images with normal homogenous activity and no wedge-shaped or segmental defects. No ventilation-perfusion mismatches. OTHER: No other significant finding. IMPRESSION: NORMAL VENTILATION-PERFUSION LUNG SCAN. NEGATIVE FOR PULMONARY EMBOLI. TECHNICAL DOCUMENTATION: JOB ID: [id number] [employer]- All Rights Reserved Reading location - IP/workstation name: [email or web address]
[2017-11-21 19:03] VITALS: BP 124/73
--- NOTE | 2017-11-21 22:53 | EKG REPORT ---
SEVERITY:- ABNORMAL ECG - SINUS RHYTHM LEFT AXIS DEVIATION : Confirmed by: Angeline Schulz MD 21-Nov-2017 22:53:02
== END 2017-11-21 19:11 | disposition home or self-care (01) ==
LOC: ER 13:22
DX: R07.9 Chest pain, unspecified (principal); C78.00 Secondary malignant neoplasm of unspecified lung; Z79.899 Other long term (current) drug therapy; Z85.3 Personal history of malignant neoplasm of breast; Z87.01 Personal history of pneumonia (recurrent); Z91.013 Allergy to seafood; Z88.8 Allergy status to other drugs, medicaments and biological substances
CPT/HCPCS: 93005; 99285; 96360; 36415; 87040; 83735; 85025; 85610; 80053; 84484; 83605; 71046; 78582; 93010; A9540; A9567; A9270; J7030; Q9969; S0119

== ENCOUNTER 2017-12-11 14:42 | Emergency (ER) | payer MEDICARE, MEDICAID ==
[2017-12-11] MEDS ORDERED: NORMAL SALINE 1000 ML 1,000 ML IV ONE (15:03)
[2017-12-11] MEDS ORDERED: MORPHINE SULFATE 10 MG/ML INJ IV ONE (15:03)
--- NOTE | 2017-12-11 15:06 | ER Document Report ---
ED Medical Screen (RME) - General Chief Complaint: Nausea/Vomiting/Diarrhea Stated Complaint: BODY PAIN Time Seen by Provider: 12/11/17 15:03 TRAVEL OUTSIDE OF THE [place] IN LAST 30 DAYS: No - HPI Patient complains to provider of: Nausea, vomiting, diarrhea, abdominal pain Notes: 12/11/17 15:05 57-year-old female with a history of breast cancer with lung metastases, last chemotherapy treatment was on Thursday, presenting to the emergency room for epigastric abdominal pain with nausea, vomiting and diarrhea that has been present for the past few weeks - Related Data Allergies/Adverse Reactions: iodine [Iodine] Allergy (Severe, Verified 11/21/17 13:48) Shortness of Breath levocetirizine [Levocetirizine] Allergy (Severe, Verified 11/21/17 13:48) rash Shellfish * [Shellfish] Allergy (Severe, Verified 11/21/17 13:48) Shortness of Breath lorazepam [From Ativan] Adverse Reaction (Severe, Verified 11/21/17 13:48) confused hydrocodone bitartrate [From Vicodin] Adverse Reaction (Verified 11/21/17 13:48) confused n and v Past Medical History - Social History Chew tobacco use (# tins/day): No Frequency of alcohol use: Rare Drug Abuse: None - Past Medical History Cardiac Medical History: Denies: Hx Coronary Artery Disease, Hx Heart Attack, Hx Hypertension Pulmonary Medical History: Reports: Hx Pneumonia Denies: Hx Asthma, Hx Bronchitis, Hx COPD Neurological Medical History: Reports: Hx Migraine. Denies: Hx Cerebrovascular Accident, Hx Seizures Endocrine Medical History: Denies: Hx Diabetes Mellitus Type 2 Renal/ Medical History: Denies: Hx Peritoneal Dialysis Malignancy Medical History: Reports: Hx Breast Cancer Musculoskeltal Medical History: Denies Hx Arthritis Psychiatric Medical History: Reports: Hx Depression - anxiety Past Surgical History: Reports: Hx Breast Surgery - L mastectomy, Hx Mastectomy - left, Hx Orthopedic Surgery - left knee, right shoulder - Immunizations Hx Diphtheria, Pertussis, Tetanus Vaccination: No History of Influenza Vaccine for 02/2017 - 07/2017 Season: No Doctor's Discharge - Discharge Referrals: ALIYAH MACK MD [Primary Care Provider] - Follow up as needed
[2017-12-11 15:35] LABS: APPEARANCE,URINE CLEAR; BILIRUBIN,URINE NEGATIVE (NEGATIVE); COLOR,URINE YELLOW; GLUCOSE, URINE NEGATIVE (NEGATIVE); KETONES,URINE NEGATIVE (NEGATIVE); LEUKOCYTE ESTERASE,URINE NEGATIVE (NEGATIVE); NITRITE,URINE NEGATIVE (NEGATIVE); PROTEIN,URINE NEGATIVE (NEGATIVE); URINE SPECIFIC GRAVITY 1.019; UROBILINOGEN,URINE NEGATIVE mg/dL (<2.0)
[2017-12-11 16:39] LABS: HEMATOCRIT 35.2 % (36.0-47.0); HEMOGLOBIN 11.8 g/dL (12.0-15.5); MEAN CORPUSCULAR HGB CONC 33.4 g/dL (32.0-36.0); MEAN CORPUSCULAR VOLUME 93 fl (80-97); PLATELET COUNT 162 10^3/uL (150-450)
[2017-12-11 17:05] LABS: ALANINE AMINOTRANSFERASE 30 U/L (9-52); ALBUMIN 3.8 g/dL (3.5-5.0); ALKALINE PHOSPHATASE 96 U/L (38-126); ANION GAP 10 (5-19); ASPARTATE AMINO TRANSFERASE 24 U/L (14-36); BILIRUBIN,DIRECT 0.2 mg/dL (0.0-0.4); BILIRUBIN,TOTAL 0.4 mg/dL (0.2-1.3); BLOOD UREA NITROGEN 11 mg/dL (7-20); CALCIUM 8.5 mg/dL (8.4-10.2); CARBON DIOXIDE 28 mmol/L (22-30); CHLORIDE 102 mmol/L (98-107); GLUCOSE 72 mg/dL (75-110); LIPASE 61.1 U/L (23-300); POTASSIUM 3.6 mmol/L (3.6-5.0); SODIUM 139.5 mmol/L (137-145); TOTAL PROTEIN 6.4 g/dL (6.3-8.2)
[2017-12-11 17:28] LABS: ABSOLUTE LYMPHOCYTES# (MANUAL) 0.5 10^3/uL (0.5-4.7); ABSOLUTE MONOCYTES # (MANUAL) 0.2 10^3/uL (0.1-1.4); ABSOLUTE NEUTROPHILS# (MANUAL) 0.8 10^3/uL (1.7-8.2); BAND NEUTROPHILS % (MANUAL) 2 % (3-5); BASOPHILS % (MANUAL) 0 % (0-2); EOSINOPHILS % (MANUAL) 2 % (0-6); LYMPHOCYTES % (MANUAL) 36 % (13-45); METAMYELOCYTES % (MANUAL) 2 % (0); MONOCYTES % (MANUAL) 12 % (3-13); SEGMENTED NEUTROPHILS % (MAN) 46 % (42-78); TOTAL CELLS COUNTED 50
[2017-12-11 17:30] LABS: ANISOCYTOSIS SLIGHT; PLATELET COMMENT ADEQUATE; PLATELET LARGE PRESENT
[2017-12-11 17:31] LABS: OVALOCYTES SLIGHT; POIKILOCYTOSIS SLIGHT; TEAR DROP CELLS SLIGHT
[2017-12-11 17:36] LABS: WHITE BLOOD COUNT 1.5 10^3/uL (4.0-10.5)
--- NOTE | 2017-12-11 18:21 | RADIOLOGY REPORT (SQ) ---
EXAM DESCRIPTION: CT ABD/PELVIS WITH IV ORAL COMPLETED DATE/TIME: 12/11/2017 5:57 pm REASON FOR STUDY: abdominal pain, breast CA . Left upper quadrant pain. COMPARISON: CT abdomen and pelvis 07/30/2017, 10/30/2016. TECHNIQUE: CT scan of the abdomen and pelvis performed using helical scanning technique with dynamic intravenous contrast injection and oral contrast. Images reviewed with lung, soft tissue, and bone w indows. Reconstructed coronal and sagittal MPR images reviewed. Delayed images for evaluation of the urinary system also acquired. All images stored on PACS. All CT scanners at this facility use dose modulation, iterative reconstruction, and/or weight based d osing when appropriate to reduce radiation dose to as low as reasonably achievable (ALARA). [facility]: Dose Right [facility]: CareDose [facility]: Dose Right [facility]: Teradose 4D [facility]: [employer] CONTRAST TYPE AND DOSE: contrast/concentration: Isovue 370.00 mg/ml; Total Contrast Delivered: 58.0 ml; Total Saline Delivered: 40.0 ml RENAL FUNCTION: Creatinine 0.57 RADIATION DOSE: CT Rad equipment meets quality standard of care and radiation dose reduction techniq ues were employed. CTDIvol: 4.8 - 5.0 mGy. DLP: 537 mGy-cm.. LIMITATIONS: None. FINDINGS: LOWER CHEST: No consolidation or pleural effusion. The patient is status post left mastec lex. LIVER: Normal size. No masses. No dilated ducts. SPLEEN: Normal size. PANCREAS: No significant calcifications. No adjacent inflammation or peripancreatic fluid collections . Pancreatic duct not dilated. GALLBLADDER: Contracted. ADRENAL GLANDS: No significant masses or asymmetry. RIGHT KIDNEY AND URETER: No solid masses. No significant calcifications. No hydronephrosis or hyd roureter. LEFT KIDNEY AND URETER: No solid masses. Redemonstration of postsurgical and cystic changes at the l eft kidney. No significant calcifications. No hydronephrosis or hydroureter. AORTA AND VESSELS: No abdominal aortic aneurysm. RETROPERITONEUM: No retroperitoneal adenopathy, hemorrhage or masses. BOWEL AND PERITONEAL CAVITY: There is wall thickening at the gastric antrum measuring up to 9 mm. Or al contrast is seen within the stomach and nondilated small bowel loops. No evidence for bowel obstr uction. Moderate amount of stool noted at the colon. There is mild colonic diverticulosis with no C T evidence for acute diverticulitis APPENDIX: Not visualized. PELVIS: The urinary bladder is distended. The uterus is present. No free fluid. ABDOMINAL WALL: No hernias. BONES: Mild multilevel degenerative changes at the spine. IMPRESSION: 1. Wall thickening at the gastric antrum, may be secondary to underdistention, gastritis , ulcer disease or neoplasm. Evaluation with upper endoscopy as clinically warranted. 2. Moderate amount of stool at the colon. 3. Mild colonic diverticulosis. 4. Postsurgical changes at the left kidney. TECHNICAL DOCUMENTATION: JOB ID: [id number] ND- Quality ID # 436: Final reports with documentation of one or more dose reduction techniques (e.g., Au tomated exposure control, adjustment of the mA and/or kV according to patient size, use of iterative reconstruction technique) 2010 [employer]- All Rights Reserved Reading location - IP/workstation name: [email or web address]
[2017-12-11] MEDS ORDERED: FAMOTIDINE INJ/PF 20 MG/2 ML SDV IV ONE (19:54)
[2017-12-11] MEDS ORDERED: SUCRALFATE SUSP 1 GM/10 ML UDCUP PO ONE (19:54)
--- NOTE | 2017-12-11 20:04 | ER Document Report ---
ED General - General Chief Complaint: Nausea/Vomiting/Diarrhea Stated Complaint: BODY PAIN Time Seen by Provider: 12/11/17 15:03 Notes: 57-year-old female with history of metastatic breast cancer who last had chemo on Thursday presents the emergency department complaining of epigastric abdominal pain that improves with aspirin and worsens with food, its associated with vomiting and diarrhea and has been going on for the past several days. She admits sweats but denies chills or fevers. She is currently undergoing treatment for left-sided breast cancer status post mastectomy with metastases to the right side of her lung. TRAVEL OUTSIDE OF THE [place] IN LAST 30 DAYS: No - Related Data Allergies/Adverse Reactions: iodine [Iodine] Allergy (Severe, Verified 11/21/17 13:48) Shortness of Breath levocetirizine [Levocetirizine] Allergy (Severe, Verified 11/21/17 13:48) rash Shellfish * [Shellfish] Allergy (Severe, Verified 11/21/17 13:48) Shortness of Breath lorazepam [From Ativan] Adverse Reaction (Severe, Verified 11/21/17 13:48) confused hydrocodone bitartrate [From Vicodin] Adverse Reaction (Verified 11/21/17 13:48) confused n and v Past Medical History - General Information source: Patient - Social History Smoking Status: Never Smoker Chew tobacco use (# tins/day): No Frequency of alcohol use: Rare Drug Abuse: None Family History: Reviewed & Not Pertinent, CVA, DM, Hypertension, Malignancy Patient has suicidal ideation: No Patient has homicidal ideation: No - Past Medical History Cardiac Medical History: Denies: Hx Coronary Artery Disease, Hx Heart Attack, Hx Hypertension Pulmonary Medical History: Reports: Hx Pneumonia Denies: Hx Asthma, Hx Bronchitis, Hx COPD Neurological Medical History: Reports: Hx Migraine. Denies: Hx Cerebrovascular Accident, Hx Seizures Endocrine Medical History: Denies: Hx Diabetes Mellitus Type 2 Renal/ Medical History: Denies: Hx Peritoneal Dialysis Malignancy Medical History: Reports: Hx Breast Cancer Musculoskeletal Medical History: Denies Hx Arthritis Psychiatric Medical History: Reports: Hx Depression - anxiety Past Surgical History: Reports: Hx Breast Surgery - L mastectomy, Hx Mastectomy - left, Hx Orthopedic Surgery - left knee, right shoulder - Immunizations Hx Diphtheria, Pertussis, Tetanus Vaccination: No Hx Pneumococcal Vaccination: 05/25/00 Review of Systems - Review of Systems Constitutional: See HPI, Diaphoresis. denies: Fever, Malaise, Weakness EENT: No symptoms reported Cardiovascular: No symptoms reported Respiratory: No symptoms reported Gastrointestinal: See HPI, Abdominal pain, Diarrhea, Nausea, Vomiting -: Yes All other systems reviewed and negative Physical Exam - Vital signs Vitals: Resp Pulse Ox 13 96 12/11/17 15:26 12/11/17 15:26 Interpretation: Normal - Notes Notes: GENERAL: Alert, interacts well. No acute distress. HEAD: Normocephalic, atraumatic EYES: Pupils equal, round and reactive to light, extraocular movements intact. ENT: Oral mucosa moist, tongue midline. NECK: Full range of motion, supple, trachea midline. LUNGS: Clear to auscultation bilaterally, no wheezes, rales or rhonchi, no respiratory distress. HEART: Regular rate and rhythm, no murmurs, gallops, rubs. ABDOMEN: Soft, epigastric abdominal tenderness to palpation, no guarding, rigidity or rebound, nondistended, bowel sounds present in all 4 quadrants. EXTREMITIES: Moves all 4 extremities spontaneously, no edema, radial and dorsalis pedis pulses 2/4 bilaterally. No cyanosis. NEUROLOGICAL: Alert and oriented x3, normal speech. PSYCH: Normal mood, normal affect. SKIN: Warm, Dry, normal turgor, no rashes or lesions noted. Course - Re-evaluation Re-evalutation: 12/11/17 19:56 CBC shows low white blood cell count 1.5 which is consistent with her chemotherapy, anemia with hemoglobin 11.8, chemistries grossly unremarkable, lipase normal, no abnormality with LFTs, urinalysis unremarkable, CT scan of the abdomen and pelvis shows thickening at the gastric antrum measuring up to 9 mm, oral contrast transits without difficulty, no evidence of acute infection or obstruction. Thickening is thought to be possibly from ulcer versus neoplasm versus under distention. Discussed with patient that is very common to get ulcers with chemotherapy and that given the fact that her pain is worsening every time she eats that I do suspect this is likely an ulcer. This will be treated with Carafate and Zantac. Patient is instructed to follow-up with gastroenterology for possible endoscopy for further clarification of what exactly this thickening is. Patient will also follow-up with Dr. Mack for this. Patient is aware that this could represent cancer. Patient will be discharged to home. - Vital Signs Vital signs: Temp Pulse Resp BP Pulse Ox 20 93/81 L 99 12/11/17 19:02 12/11/17 19:02 12/11/17 19:02 - Laboratory Result Diagrams: 12/11/17 16:23 12/11/17 16:23 Laboratory results interpreted by me: 12/11/17 12/11/17 12/11/17 15:13 16:23 16:23 WBC 1.5 L* Hgb 11.8 L Hct 35.2 L RDW 15.0 H Band Neutrophils % 2 L Metamyelocytes % 2 H Abs Neuts (Manual) 0.8 L Glucose 72 L Urine Ascorbic Acid 40 H Discharge - Discharge Clinical Impression: Epigastric abdominal pain, H/O malignant neoplasm of breast Condition: Stable Disposition: HOME, SELF-CARE Additional Instructions: Your CT scan shows a thickening in your stomach. It is likely that this represents an ulcer in your stomach which is being caused by the chemotherapy. It could also just be because your stomach was not full or it could be from a another form of cancer or tumor. Currently we are going to treat this as though it is coming from an ulcer. Please take Zantac 150 mg twice a day for the next 2 weeks. Please also take Carafate 1 tab every 6 hours. Please make sure you wait at least an hour after taking any other medications before taking the Carafate. It is important that you follow-up with Dr. Soriano and Dr. Mack to further investigate the exact cause of the swelling in your stomach. Prescriptions: Ranitidine HCl [Zantac 150 mg Tablet] 150 mg PO BID #60 tablet Sucralfate [Carafate 1 gm Tablet] 1 gm PO ACHS #120 tablet Referrals: ALIYAH MACK MD [Primary Care Provider] - Follow up as needed
[2017-12-11 21:09] VITALS: BP 130/84
[2017-12-14 16:38] LABS: PATH REVIEW PATHOLOGIST REVIEWED
== END 2017-12-11 21:12 | disposition home or self-care (01) ==
LOC: ER 14:42
DX: R10.13 Epigastric pain (principal); R11.2 Nausea with vomiting, unspecified; R19.7 Diarrhea, unspecified; R61 Generalized hyperhidrosis; C50.912 Malignant neoplasm of unspecified site of left female breast; C78.01 Secondary malignant neoplasm of right lung; D64.9 Anemia, unspecified; D72.829 Elevated white blood cell count, unspecified; Z79.899 Other long term (current) drug therapy; Z85.3 Personal history of malignant neoplasm of breast; Z90.10 Acquired absence of unspecified breast and nipple; Z91.013 Allergy to seafood; Z88.8 Allergy status to other drugs, medicaments and biological substances
CPT/HCPCS: 99284; 96361; 96374; 36415; 87086; 83690; 85025; 80053; 81001; 74177; J7030; S0028

== ENCOUNTER → 2018-02-22 | Outpatient (CLI) | payer MEDICARE, MEDICAID ==
--- NOTE | 2018-02-22 15:45 | RADIOLOGY REPORT (SQ) ---
EXAM DESCRIPTION: NM LUNG VENT/PERF SCAN COMPLETED DATE/TIME: 02/22/2018 3:37 pm REASON FOR STUDY: CHEST PAIN ON EXERTION R07.9 CHEST PAIN, UNSPECIFIED C78.01 SECONDARY MALIGNANT NEOPLASM OF RIGHT LUNG COMPARISON: None. RADIONUCLIDE AND DOSE: 5.2 millicuries TC-99m MAA Intravenous 29.5 millicuries TC-99m DTPA Inhaled aerosol TECHNIQUE: Eight views of the lungs acquired post ventilation of DTPA aerosol. Eight matching views of the lungs acquired following injection of MAA. LIMITATIONS: None. FINDINGS: VENTILATION: Symmetric and homogeneous distribution of DTPA aerosol during ventilatory pha se. No significant areas of photopenia. PERFUSION: Perfusion images with normal homogenous activity and no wedge-shaped or segmental defects. No ventilation-perfusion mismatches. OTHER: No other significant finding. IMPRESSION: Low probability for pulmonary embolus. TECHNICAL DOCUMENTATION: JOB ID: [id number] [employer]- All Rights Reserved Reading location - IP/workstation name: [email or web address]
--- NOTE | 2018-02-22 16:05 | RADIOLOGY REPORT (SQ) ---
EXAM DESCRIPTION: CHEST 2 VIEWS COMPLETED DATE/TIME: 02/22/2018 3:40 pm REASON FOR STUDY: CHEST PAIN ON EXERTION COMPARISON: 11/21/2017. EXAM PARAMETERS: NUMBER OF VIEWS: two views TECHNIQUE: Digital Frontal and Lateral radiographic views of the chest acquired. RADIATION DOSE: NA LIMITATIONS: none FINDINGS: LUNGS AND PLEURA: Chronic infiltrate or scarring left upper lobe. Previously noted pleura l base mass right upper lobe seen on prior CT 08/12/2017 not visualized. MEDIASTINUM AND HILAR STRUCTURES: No masses or contour abnormalities. HEART AND VASCULAR STRUCTURES: Heart normal size. Normal pulmonary vasculature. HARDWARE: Port-A-Cath overlying SVC. OTHER: Status post left mastectomy. Surgical clips left axilla. IMPRESSION: Status post left mastectomy. Chronic scarring left upper lobe. Otherwise, no acute dis ease. TECHNICAL DOCUMENTATION: JOB ID: [id number] [employer]- All Rights Reserved Reading location - IP/workstation name: [email or web address]
== END ==
LOC: RAD 14:15
PROVIDERS: ATTEND Internal Medicine Medical Oncology
DX: R07.9 Chest pain, unspecified (principal); C78.01 Secondary malignant neoplasm of right lung
CPT/HCPCS: 71046; 78582; A9540; A9567

== ENCOUNTER → 2018-03-24 | Outpatient (CLI) | payer MEDICARE, MEDICAID ==
--- NOTE | 2018-03-24 16:20 | RADIOLOGY REPORT (SQ) ---
EXAM DESCRIPTION: NM MUGA REST COMPLETED DATE/TIME: 03/24/2018 3:49 pm REASON FOR STUDY: CHEMO DRUGS I42.7 CARDIOMYOPATHY DUE TO DRUG AND EXTERNAL AGENT COMPARISON: None. RADIONUCLIDE AND DOSE: 25 mCi technetium 99m labeled red blood cells The route of agent administration: Intravenous TECHNIQUE: Following administration of the radionuclide, gated images of the heart are obtained in t hree projections. Left ventricular functional analysis performed. LIMITATIONS: None. FINDINGS: LEFT VENTRICULAR FUNCTION: EJECTION FRACTION: 63%. END-DIASTOLIC VOLUME: 133 mL. END-SYSTOLIC VOLUME: 42 mL. WALL MOTION: No focal wall motion abnormalities. OTHER: No other significant finding. IMPRESSION: NORMAL CARDIAC MUGA STUDY. NORMAL LEFT VENTRICULAR FUNCTION WITH VALUES ABOVE. TECHNICAL DOCUMENTATION: JOB ID: [id number] [employer]- All Rights Reserved Reading location - IP/workstation name: [email or web address]
== END ==
LOC: RAD 13:51
PROVIDERS: ATTEND Internal Medicine Medical Oncology
DX: I42.7 Cardiomyopathy due to drug and external agent (principal); T45.1X5S Adverse effect of antineoplastic and immunosuppressive drugs, sequela
CPT/HCPCS: 78472; A9560; Q9969

== ENCOUNTER 2018-03-28 12:49 | Emergency (ER) | payer MEDICARE, MEDICAID ==
[2018-03-28 14:07] LABS: HEMATOCRIT 31.5 % (36.0-47.0); HEMOGLOBIN 11.1 g/dL (12.0-15.5); INTERNATIONAL RATION (INR) 1.04; MEAN CORPUSCULAR HEMOGLOBIN 34.1 pg (27.0-33.4); MEAN CORPUSCULAR HGB CONC 35.1 g/dL (32.0-36.0); MEAN CORPUSCULAR VOLUME 97 fl (80-97); PLATELET COUNT 182 10^3/uL (150-450); PROTHROMBIN TIME 14.1 SEC (11.4-15.4); RED BLOOD COUNT 3.25 10^6/uL (3.72-5.28); RED CELL DISTRIBUTION WIDTH 15.3 % (11.5-14.0); WHITE BLOOD COUNT 12.2 10^3/uL (4.0-10.5)
[2018-03-28 14:20] LABS: ALANINE AMINOTRANSFERASE 27 U/L (9-52); ALBUMIN 3.9 g/dL (3.5-5.0); ALKALINE PHOSPHATASE 141 U/L (38-126); ANION GAP 12 (5-19); ASPARTATE AMINO TRANSFERASE 25 U/L (14-36); BILIRUBIN,TOTAL 0.4 mg/dL (0.2-1.3); BLOOD UREA NITROGEN 8 mg/dL (7-20); CARBON DIOXIDE 29 mmol/L (22-30); CHLORIDE 100 mmol/L (98-107); GLUCOSE 89 mg/dL (75-110); POTASSIUM 3.9 mmol/L (3.6-5.0); SODIUM 140.7 mmol/L (137-145); TOTAL PROTEIN 6.6 g/dL (6.3-8.2)
[2018-03-28] MEDS ORDERED: NORMAL SALINE 1000 ML 1,000 ML IV ONE (14:24)
[2018-03-28 14:36] LABS: ABSOLUTE LYMPHOCYTES# (MANUAL) 1.6 10^3/uL (0.5-4.7); ABSOLUTE MONOCYTES # (MANUAL) 0.6 10^3/uL (0.1-1.4); BAND NEUTROPHILS % (MANUAL) 5 % (3-5); BASOPHILS % (MANUAL) 0 % (0-2); EOSINOPHILS % (MANUAL) 0 % (0-6); LYMPHOCYTES % (MANUAL) 13 % (13-45); MONOCYTES % (MANUAL) 5 % (3-13); SEGMENTED NEUTROPHILS % (MAN) 77 % (42-78); TOTAL CELLS COUNTED 100
[2018-03-28 14:38] LABS: ANISOCYTOSIS SLIGHT; PLATELET COMMENT ADEQUATE; TOXIC GRANULATION 2+
[2018-03-28] MEDS ORDERED: ONDANSETRON HCL INJ/PF 4 MG/2 ML SDV IV ONE (15:03)
[2018-03-28] MEDS ORDERED: PROCHLORPERAZINE EDISYLATE INJ 10 MG/2 ML VIAL IV ONE (15:03)
--- NOTE | 2018-03-28 15:04 | RADIOLOGY REPORT (SQ) ---
EXAM DESCRIPTION: CT HEAD WITHOUT COMPLETED DATE/TIME: 03/28/2018 2:51 pm REASON FOR STUDY: syncope COMPARISON: 06/25/2016 TECHNIQUE: Axial images acquired through the brain without intravenous contrast. Images reviewed wi th bone, brain and subdural windows. Images stored on PACS. All CT scanners at this facility use dose modulation, iterative reconstruction, and/or weight based d osing when appropriate to reduce radiation dose to as low as reasonably achievable (ALARA). [facility]: Dose Right [facility]: CareDose [facility]: Dose Right [facility]: Teradose 4D [facility]: [employer] RADIATION DOSE: CT Rad equipment meets quality standard of care and radiation dose reduction techniq ues were employed. CTDIvol: 53.2 mGy. DLP: 1070 mGy-cm. mGy. LIMITATIONS: None. FINDINGS: VENTRICLES: Normal size and contour. CEREBRUM: No masses. No hemorrhage. No midline shift. No evidence for acute infarction. Normal gra y/white matter differentiation. No areas of low density in the white matter. CEREBELLUM: No masses. No hemorrhage. No alteration of density. No evidence for acute infarction. EXTRAAXIAL SPACES: No fluid collections. No masses. ORBITS AND GLOBE: No intra- or extraconal masses. Normal contour of globe without masses. CALVARIUM: No fracture. PARANASAL SINUSES: No fluid or mucosal thickening. SOFT TISSUES: No mass or hematoma. OTHER: No other significant finding. IMPRESSION: No acute intracranial findings. EVIDENCE OF ACUTE STROKE: NO. COMMENT: Quality ID # 436: Final reports with documentation of one or more dose reduction techniques (e.g., Automated exposure control, adjustment of the mA and/or kV according to patient size, use of iterative reconstruction technique) TECHNICAL DOCUMENTATION: JOB ID: [id number] [place]-72 2010 [employer] All Rights Reserved Reading location - IP/workstation name: [email or web address]
--- NOTE | 2018-03-28 15:05 | ER Document Report ---
ED General - General Chief Complaint: Dizziness Stated Complaint: DIZZY Time Seen by Provider: 03/28/18 14:21 TRAVEL OUTSIDE OF THE [place] IN LAST 30 DAYS: No - HPI Patient complains to provider of: Dizziness Notes: Patient coming in today for dizziness and syncopal episode. 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 Patient states over the last few days she has been feeling dizzy. Patient currently is on chemotherapy last received on Thursday. Patient states she did receive a new medication for her white cell count was not Neulasta. Patient states since that time received medication symptoms have persisted. Patient also states continues with some nausea. Patient otherwise describes a funny feeling in her head. Patient denies specific head trauma denies any fevers chills abdominal pain chest pain. Patient otherwise is resting comfortably upon my evaluation. - Related Data Allergies/Adverse Reactions: iodine [Iodine] Allergy (Severe, Verified 11/21/17 13:48) Shortness of Breath levocetirizine [Levocetirizine] Allergy (Severe, Verified 11/21/17 13:48) rash Shellfish * [Shellfish] Allergy (Severe, Verified 11/21/17 13:48) Shortness of Breath lorazepam [From Ativan] Adverse Reaction (Severe, Verified 11/21/17 13:48) confused hydrocodone bitartrate [From Vicodin] Adverse Reaction (Verified 11/21/17 13:48) confused n and v Past Medical History - Social History Smoking Status: Unknown if Ever Smoked Family History: Reviewed & Not Pertinent, CVA, DM, Hypertension, Malignancy - Past Medical History Cardiac Medical History: Denies: Hx Coronary Artery Disease, Hx Heart Attack, Hx Hypertension Pulmonary Medical History: Reports: Hx Pneumonia Denies: Hx Asthma, Hx Bronchitis, Hx COPD Neurological Medical History: Reports: Hx Migraine. Denies: Hx Cerebrovascular Accident, Hx Seizures Endocrine Medical History: Denies: Hx Diabetes Mellitus Type 2 Renal/ Medical History: Denies: Hx Peritoneal Dialysis Malignancy Medical History: Reports: Hx Breast Cancer Musculoskeletal Medical History: Denies Hx Arthritis Psychiatric Medical History: Reports: Hx Depression - anxiety Past Surgical History: Reports: Hx Breast Surgery - L mastectomy, Hx Mastectomy - left, Hx Orthopedic Surgery - left knee, right shoulder - Immunizations Hx Diphtheria, Pertussis, Tetanus Vaccination: No Hx Pneumococcal Vaccination: 05/25/00 Review of Systems - Review of Systems Constitutional: No symptoms reported EENT: No symptoms reported Cardiovascular: Syncope, Dizziness Respiratory: No symptoms reported Gastrointestinal: No symptoms reported Genitourinary: No symptoms reported Female Genitourinary: No symptoms reported Musculoskeletal: No symptoms reported Skin: No symptoms reported Hematologic/Lymphatic: No symptoms reported Neurological/Psychological: No symptoms reported -: Yes All other systems reviewed and negative Physical Exam - Vital signs Vitals: Pulse Resp BP Pulse Ox 82 18 113/75 100 03/28/18 13:03 03/28/18 13:03 03/28/18 13:03 03/28/18 13:03 Interpretation: Normal - General General appearance: Appears well, Alert - HEENT Head: Normocephalic, Atraumatic Eyes: Normal Pupils: PERRL - Respiratory Respiratory status: No respiratory distress Chest status: Nontender Breath sounds: Normal Chest palpation: Normal - Cardiovascular Rhythm: Regular Heart sounds: Normal auscultation Murmur: No - Abdominal Inspection: Normal Distension: No distension Bowel sounds: Normal Tenderness: Nontender Organomegaly: No organomegaly - Back Back: Normal, Nontender - Extremities General upper extremity: Normal inspection, Nontender, Normal color, Normal ROM , Normal temperature General lower extremity: Normal inspection, Nontender, Normal color, Normal ROM , Normal temperature, Normal weight bearing. No: Grace's sign - Neurological Neuro grossly intact: Yes Cognition: Normal Orientation: AAOx4 Genoveva Coma Scale Eye Opening: Spontaneous Pompey Coma Scale Verbal: Oriented Genoveva Coma Scale Motor: Obeys Commands Pompey Coma Scale Total: 15 Speech: Normal Motor strength normal: LUE, RUE, LLE, RLE Sensory: Normal - Psychological Associated symptoms: Normal affect, Normal mood - Skin Skin Temperature: Warm Skin Moisture: Dry Skin Color: Normal Course - Re-evaluation Re-evalutation: 03/28/18 23:58 Patient feeling better after IV fluids. Multiple calls were made to the patient 's oncologist Dr. Mckeon however no return phone calls. Patient agrees that she was see her oncologist tomorrow that she is scheduled for chemotherapy. Patient will be discharged home. - Vital Signs Vital signs: Temp Pulse Resp BP Pulse Ox 98.4 F 86 22 H 124/49 L 96 03/28/18 18:10 03/28/18 16:51 03/28/18 18:01 03/28/18 18:01 03/28/18 18:01 - Laboratory Result Diagrams: 03/28/18 13:30 03/28/18 13:30 Laboratory results interpreted by me: 03/28/18 03/28/18 13:30 13:30 WBC 12.2 H RBC 3.25 L Hgb 11.1 L Hct 31.5 L MCH 34.1 H RDW 15.3 H Abs Neuts (Manual) 10.0 H Creatinine 0.50 L Alkaline Phosphatase 141 H Discharge - Discharge Clinical Impression: Dizziness Syncope Qualifiers: Syncope type: unspecified Qualified Code(s): R55 - Syncope and collapse Condition: Good Disposition: HOME, SELF-CARE Instructions: Dizziness ([facility]), Syncopal Episode ([facility]) Additional Instructions: Laboratory studies today do not show any acute abnormalities. More likely her syncopal episode was due to underlying dehydration. This may also be possible etiology of the dizziness and funny feeling in her head. Chest x-ray and CT of your head also did not show any critical pathology at this time. Would highly recommend trying the Zofran and Compazine combination for any dizziness that she may experience this medication also help out with any nausea that she may experience. I would also recommend making sure that you drink plenty of fluids to stay well-hydrated. Please follow-up with your physician Prescriptions: Ondansetron HCl [Zofran 4 mg Tablet] 1 - 2 tab PO Q6 #30 tablet Prochlorperazine Maleate [Compazine] 5 mg PO Q6 #30 tablet Referrals: SUSHILA GRECO MD [Primary Care Provider] - Follow up as needed
[2018-03-28 16:00] LABS: VENOUS BLOOD BASE EXCESS -0.1 mmol/L; VENOUS BLOOD HCO3 25.5 mmol/L (20-32); VENOUS BLOOD PCO2 44.7 mmHg (35-63); VENOUS BLOOD PH 7.37 (7.30-7.42)
--- NOTE | 2018-03-28 16:28 | RADIOLOGY REPORT (SQ) ---
EXAM DESCRIPTION: CHEST 2 VIEWS COMPLETED DATE/TIME: 03/28/2018 3:05 pm REASON FOR STUDY: syncope COMPARISON: 02/22/2018 TECHNIQUE: Frontal and lateral radiographic views of the chest acquired. NUMBER OF VIEWS: Two view. LIMITATIONS: None. FINDINGS: LUNGS AND PLEURA: No pneumothorax. Similar scarring in the left upper lobe. No consolida tion or pleural effusion. MEDIASTINUM AND HILAR STRUCTURES: Stable. HEART AND VASCULAR STRUCTURES: Stable. BONES: No acute findings. HARDWARE: Surgical clips in the left axilla from prior mastectomy. OTHER: No other significant finding. IMPRESSION: NO ACUTE FINDINGS. TECHNICAL DOCUMENTATION: JOB ID: [id number]-72 2010 [employer]- All Rights Reserved Reading location - IP/workstation name: [email or web address]
[2018-03-28 16:30] LABS: APPEARANCE,URINE CLEAR; BILIRUBIN,URINE NEGATIVE (NEGATIVE); COLOR,URINE STRAW; GLUCOSE, URINE NEGATIVE (NEGATIVE); KETONES,URINE NEGATIVE (NEGATIVE); LEUKOCYTE ESTERASE,URINE NEGATIVE (NEGATIVE); NITRITE,URINE NEGATIVE (NEGATIVE); PROTEIN,URINE NEGATIVE (NEGATIVE); URINE SPECIFIC GRAVITY 1.006; UROBILINOGEN,URINE NEGATIVE mg/dL (<2.0)
[2018-03-28 18:06] VITALS: BP 124/49
--- NOTE | 2018-03-28 22:17 | EKG REPORT ---
SEVERITY:- ABNORMAL ECG - SINUS RHYTHM MULTIPLE ATRIAL PREMATURE COMPLEXES BORDERLINE LEFT AXIS DEVIATION : Confirmed by: Angeline Schulz MD 28-Mar-2018 22:16:49
== END 2018-03-28 18:14 | disposition home or self-care (01) ==
LOC: ER 12:49
DX: R42 Dizziness and giddiness (principal); R55 Syncope and collapse; C50.919 Malignant neoplasm of unspecified site of unspecified female breast; Z79.899 Other long term (current) drug therapy
CPT/HCPCS: 93005; 99285; 96361; 96374; 96375; 36415; 87040; 87086; 85025; 85610; 80053; 81001; 82803; 83605; 71046; 70450; 93010; J0780; J2405; J7030

== ENCOUNTER → 2018-04-03 | Outpatient (CLI) | payer MEDICARE, MEDICAID | LOC: OD 10:18 | PROVIDERS: ATTEND Internal Medicine | DX: E83.42 Hypomagnesemia (principal); E03.9 Hypothyroidism, unspecified | CPT/HCPCS: 36415; 82550; 83735; 84443 ==

== ENCOUNTER → 2018-04-06 | Outpatient (CLI) | payer MEDICARE ==
[2018-04-06 12:38] LABS: ABSOLUTE RETICS # 0.031 10^6/uL (0.028-0.122); HEMATOCRIT 32.4 % (36.0-47.0); HEMOGLOBIN 11.3 g/dL (12.0-15.5); MEAN CORPUSCULAR HEMOGLOBIN 33.6 pg (27.0-33.4); MEAN CORPUSCULAR HGB CONC 34.9 g/dL (32.0-36.0); MEAN CORPUSCULAR VOLUME 96 fl (80-97); PLATELET COUNT 205 10^3/uL (150-450); RED BLOOD COUNT 3.36 10^6/uL (3.72-5.28); RED CELL DISTRIBUTION WIDTH 14.9 % (11.5-14.0); RETICULOCYTE COUNT (AUTO) 0.92 % (0.66-2.85); WHITE BLOOD COUNT 5.8 10^3/uL (4.0-10.5)
[2018-04-06 13:01] LABS: IRON(TIBC) 93.3 ug/dL (37-170)
[2018-04-06 13:16] LABS: ABSOLUTE LYMPHOCYTES# (MANUAL) 0.6 10^3/uL (0.5-4.7); ABSOLUTE MONOCYTES # (MANUAL) 0.2 10^3/uL (0.1-1.4); ABSOLUTE NEUTROPHILS# (MANUAL) 4.9 10^3/uL (1.7-8.2); BAND NEUTROPHILS % (MANUAL) 2 % (3-5); BASOPHILS % (MANUAL) 1 % (0-2); EOSINOPHILS % (MANUAL) 1 % (0-6); HYPOCHROMASIA SLIGHT; LYMPHOCYTES % (MANUAL) 11 % (13-45); MONOCYTES % (MANUAL) 3 % (3-13); SEGMENTED NEUTROPHILS % (MAN) 82 % (42-78); TOTAL CELLS COUNTED 100; TOXIC GRANULATION 1+; TOXIC VACUOLATION PRESENT
[2018-04-06 13:17] LABS: PLATELET COMMENT ADEQUATE; POLYCHROMASIA SLIGHT
[2018-04-06 14:23] LABS: FOLATE 5.35 ng/mL (>2.76)
[2018-04-07 06:39] LABS: THYROID PEROXIDASE (TPO) AB 19 IU/mL (0-34)
[2018-04-07 08:23] LABS: THYROGLOBULIN AB <1.0 IU/mL (0.0-0.9)
== END ==
LOC: OD 11:21
PROVIDERS: ATTEND Internal Medicine
DX: R79.89 Other specified abnormal findings of blood chemistry (principal); D64.9 Anemia, unspecified; K92.2 Gastrointestinal hemorrhage, unspecified
CPT/HCPCS: 36415; 82607; 82728; 82746; 83540; 83550; 84436; 84481; 85025; 85045; 86376

== ENCOUNTER → 2018-06-14 | Outpatient (CLI) | payer MEDICARE, MEDICAID ==
--- NOTE | 2018-06-14 13:30 | RADIOLOGY REPORT (SQ) ---
EXAM DESCRIPTION: CHEST PA/LATERAL COMPLETED DATE/TIME: 06/14/2018 1:16 pm REASON FOR STUDY: SECONDARY MALIGNANT NEOPLASM OF RIGHT LUNG COMPARISON: Chest films 08/20/2017, 11/21/2017, 03/28/2018 Ventilation-perfusion scan 02/22/2018 CT chest 08/20/2017 EXAM PARAMETERS: NUMBER OF VIEWS: two views TECHNIQUE: Digital Frontal and Lateral radiographic views of the chest acquired. RADIATION DOSE: NA LIMITATIONS: none FINDINGS: LUNGS AND PLEURA: Surgical clips at the left lung apex. Surgical clips left axilla post m astectomy. Lungs are well inflated and clear. No pleural effusion. No pneumothorax. MEDIASTINUM AND HILAR STRUCTURES: No masses or contour abnormalities. HEART AND VASCULAR STRUCTURES: Heart normal size. No evidence for failure. BONES: No acute findings. HARDWARE: Right permanent central line tip superior vena cava OTHER: No other significant finding. IMPRESSION: Postsurgical changes left upper lobe. Left mastectomy and axillary surgical clips. No acute findings TECHNICAL DOCUMENTATION: JOB ID: [id number] [employer]- All Rights Reserved Reading location - IP/workstation name: [email or web address]
== END ==
LOC: OD 13:00 → EDBD 13:00
PROVIDERS: ATTEND Internal Medicine Medical Oncology
DX: C78.01 Secondary malignant neoplasm of right lung (principal)
CPT/HCPCS: 71046

== ENCOUNTER → 2018-07-22 | Outpatient (CLI) | payer MEDICARE, MEDICAID ==
--- NOTE | 2018-07-22 18:33 | RADIOLOGY REPORT (SQ) ---
EXAM DESCRIPTION: U/S THYROID/SFT TISS HD NECK COMPLETED DATE/TIME: 07/22/2018 6:10 pm REASON FOR STUDY: RT THYROID NODULE E04.1 NONTOXIC SINGLE THYROID NODULE COMPARISON: None. TECHNIQUE: Dynamic and static moses-scale images acquired of the thyroid gland. Selected additional c olor/power Doppler images recorded. All images stored to PACS. LIMITATIONS: None. FINDINGS: RIGHT LOBE: Normal size. Heterogeneous echotexture. 3 solid nodules, the largest 1.6 x 1 .0 x 1.1 cm. No calcifications. LEFT LOBE: Normal size. Heterogeneous echotexture. 5 mm solid nodule. ISTHMUS: Normal size. Homogeneous echotexture. No cystic or solid masses. OTHER: No other significant finding. IMPRESSION: Bilateral solid nodules. TECHNICAL DOCUMENTATION: JOB ID: [id number] [employer]- All Rights Reserved Reading location - IP/workstation name: [email or web address]
== END ==
LOC: RAD 15:51
PROVIDERS: ATTEND Internal Medicine
DX: E04.1 Nontoxic single thyroid nodule (principal)
CPT/HCPCS: 76536

== ENCOUNTER → 2018-08-17 | Outpatient (CLI) | payer MEDICARE, MEDICAID ==
--- NOTE | 2018-08-17 14:44 | RADIOLOGY REPORT (SQ) ---
EXAM DESCRIPTION: CT CHEST WITH COMPLETED DATE/TIME: 08/17/2018 2:11 pm REASON FOR STUDY: R91.8 OTHER NONSPECIFIC ABNORMAL FINDING OF LUNG FIELD R91.8 OTHER NONSPECIFIC AB NORMAL FINDING OF LUNG FIELD COMPARISON: 08/12/2017 TECHNIQUE: CT scan of the chest performed using helical scanning technique with dynamic intravenous contrast injection. Images reviewed with lung, soft tissue and bone windows. Reconstructed coronal and sagittal MPR and MIP images reviewed. All images stored on PACS. All CT scanners at this facility use dose modulation, iterative reconstruction, and/or weight based d osing when appropriate to reduce radiation dose to as low as reasonably achievable (ALARA). [facility]: Dose Right [facility]: CareDose [facility]: Dose Right [facility]: Teradose 4D [facility]: [employer] CONTRAST TYPE AND DOSE: contrast/concentration: Isovue 350.00 mg/ml; Total Contrast Delivered: 80.0 ml; Total Saline Delivered: 55.0 ml RENAL FUNCTION: Creatinine 0.5 RADIATION DOSE: CT Rad equipment meets quality standard of care and radiation dose reduction techniq ues were employed. CTDIvol: 3.0 mGy. DLP: 118 mGy-cm. . LIMITATIONS: None. FINDINGS: LUNGS AND PLEURA: The right apical mass has significantly decreased in size. It now measu res 2.3 cm in greatest diameter. Small nodule in the posterior right apex is unchanged measured 2.5 mm. There is now all a subpleural nodule in the posterior right apex measured 9.8 mm. This is new f rom prior study. Subpleural airspace disease in the left apex is slightly more prominent than on lamine or exam. Air pleural thickening in the anterolateral aspect of the left upper lobe is not significan tly changed. Scarring extends back toward the right hilum. HILAR AND MEDIASTINAL STRUCTURES: No identified masses or abnormal nodes. HEART AND VASCULAR STRUCTURES: No aneurysm or dissection. No central pulmonary emboli. No pericardi al effusion. HARDWARE: None in the chest. UPPER ABDOMEN: No significant findings. Limited exam. THYROID AND OTHER SOFT TISSUES: No masses. No adenopathy. BONES: No significant finding. OTHER: No other significant finding. IMPRESSION: Overall improvement in the CT of the chest. The large right apical mass is significantl y smaller in size measured 2.3 cm on today's study. Subpleural changes are present and are grossly s table from prior study the only new finding is in the posterior right lung apex directly B high in th e primary lesion. This measures 9.8 mm in size and most likely represents scar. TECHNICAL DOCUMENTATION: JOB ID: [id number] Quality ID # 436: Final reports with documentation of one or more dose reduction techniques (e.g., Au tomated exposure control, adjustment of the mA and/or kV according to patient size, use of iterative reconstruction technique) 2010 [employer]- All Rights Reserved Reading location - IP/workstation name: [email or web address]
== END ==
LOC: RAD 14:44
PROVIDERS: ATTEND Family Medicine
DX: R91.8 Other nonspecific abnormal finding of lung field (principal)
CPT/HCPCS: 71260; 82565

== ENCOUNTER → 2018-08-18 | Outpatient (CLI) | payer MEDICARE, MEDICAID ==
--- NOTE | 2018-08-18 15:40 | RADIOLOGY REPORT (SQ) ---
EXAM DESCRIPTION: MRI HEAD COMBO COMPLETED DATE/TIME: 08/18/2018 3:19 pm REASON FOR STUDY: R51 HEADACHE C50.919 MALIGNANT NEOPLASM OF UNSP SITE OF UNSPECIFIED FEMALE R51 HE ADACHE C50.919 MALIGNANT NEOPLASM OF UNSP SITE OF UNSPECIFIED FEMAL COMPARISON: MRI brain 06/25/2016, 10/17/2011 TECHNIQUE: Multiplanar imaging includes noncontrasted T1, T2, FLAIR, diffusion with ADC map and post gadolinium contrast T1 sequences. Images stored on PACS. CONTRAST TYPE AND DOSE: 10 mL Dotarem. RENAL FUNCTION: Not indicated. ACR Type II contrast agent associated with few, if any, unconfounded cases of NSF LIMITATIONS: None. FINDINGS: ANATOMY: No anomalies. Normal vascular flow voids. Pituitary fossa normal. CSF SPACES: Normal in size and contour. No hemorrhage. CEREBRUM: Sulci and gyri normal in size and contour. Normal white matter signal on FLAIR imaging. No evidence of hemorrhage, mass, or extraaxial fluid collection. No abnormal enhancement post contrast. POSTERIOR FOSSA: No signal alteration. No hemorrhage. No edema, masses, or mass effect. Internal deyanira tory canals, cerebellopontine angles, mastoids normal. No enhancing lesions. No abnormal enhancement post contrast. DIFFUSION IMAGING: Negative for acute or subacute infarction. ORBITS: No masses. Globes normal. PARANASAL SINUSES: No fluid levels. Mucosa normal. OTHER: No other significant finding. IMPRESSION: NORMAL MRI OF THE BRAIN WITHOUT AND WITH INTRAVENOUS GADOLINIUM CONTRAST. EVIDENCE OF ACUTE STROKE: NO. TECHNICAL DOCUMENTATION: JOB ID: [id number] [employer]- All Rights Reserved Reading location - IP/workstation name: [email or web address]
== END ==
LOC: RAD 15:50
PROVIDERS: ATTEND Internal Medicine Medical Oncology
DX: R51 Headache (principal); C50.919 Malignant neoplasm of unspecified site of unspecified female breast
CPT/HCPCS: 70553; A9576

== ENCOUNTER → 2018-10-28 | Outpatient (CLI) | payer MEDICAID, MEDICARE ==
--- NOTE | 2018-10-28 14:39 | RADIOLOGY REPORT (SQ) ---
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 Left ventricular functional analysis performed. LIMITATIONS: None. FINDINGS: LEFT VENTRICULAR FUNCTION: EJECTION FRACTION: 65%. END-DIASTOLIC VOLUME: 102 mL. END-SYSTOLIC VOLUME: 39 mL. WALL MOTION: No focal wall motion abnormalities. OTHER: No other significant finding. IMPRESSION: NORMAL CARDIAC MUGA STUDY. NORMAL LEFT VENTRICULAR FUNCTION WITH VALUES ABOVE. TECHNICAL DOCUMENTATION: JOB ID: [id number] [employer]- All Rights Reserved Reading location - IP/workstation name: [email or web address]
== END ==
LOC: RAD 13:07
PROVIDERS: ATTEND Internal Medicine Medical Oncology
DX: T45.1X1A Poisoning by antineoplastic and immunosuppressive drugs, accidental (unintentional), initial encounter (principal); I42.7 Cardiomyopathy due to drug and external agent; T45.1X5A Adverse effect of antineoplastic and immunosuppressive drugs, initial encounter
CPT/HCPCS: 78472; A9560; Q9969

== ENCOUNTER 2019-02-17 08:56 | Outpatient (CLI) | payer MEDICARE ==
[~2019-02-17 08:56] MED LIST changes: -ACETAMINOPHEN 100 ML IV ONE; -BUPIVACAINE HCL 0.5 % INJ/PF 30 ML SDV ONE; +CARBOPLATIN IV PRN; -CEFAZOLIN 2 GM/D5W RTU 2 GM/50 ML RTUPB IV PRN; +DEXAMETH 10 MG/ONDANSETRON 16 MG in NS 50 ML IV PRN; -DEXAMETHASONE SOD PHOSPHATE INJ 4 MG/1 ML VIAL ONE; +DEXAMETHASONE SOD PHOSPHATE IV PRN; -EPINEPHRINE INJ/PF 1 MG/1 ML AMPULE ONE; -FENTANYL CITRATE INJ/PF 100 MCG/2 ML AMPUL ONE; -FENTANYL CITRATE INJ/PF 250 MCG/5 ML AMPULE ONE; -GLYCOPYRROLATE INJ 0.4 MG/2 ML VIAL ONE; -KETOROLAC TROMETHAMINE 60 MG/2 ML SDV ONE; -LACTATED RINGERS 1000 ML IV PRN; -LIDOCAINE 0.5% INJ-PF (5 MG/ML) 50 ML SDV SUBCUT PRN; -LIDOCAINE 2% INJ-PF (20 MG/ML) 10 ML AMPUL ONE; -MIDAZOLAM 2 MG/2 ML INJ ONE; -MORPHINE SULFATE 10 MG/ML INJ ONE; -NEOSTIGMINE METHYLSULFATE 10 MG/10 ML VIAL ONE; +NORMAL SALINE 250 ML @ KVO IV PRN; +NORMAL SALINE IV PRN; -ONDANSETRON HCL INJ/PF 4 MG/2 ML SDV ONE; +ONDANSETRON HCL IV PRN; +PERTUZUMAB 420 MG in NORMAL SALINE 250 ML IV PRN; -PROPOFOL INJ 200 MG/20 ML VIAL IV ONE; -ROCURONIUM BROMIDE INJ 50 MG/5 ML VIAL IV ONE; -SUCCINYLCHOLINE CHLORIDE INJ 200 MG/10 ML VIAL ONE; +TRASTUZUMAB IV PRN; +VINORELBINE TARTRATE IV PRN
[2019-02-17 09:43] VITALS: BP 126/75
== END 2019-02-17 12:30 | disposition home or self-care (01) ==
LOC: II 08:56 → 5TH 08:58 → II 12:30
PROVIDERS: ATTEND Internal Medicine Hematology & Oncology
PROC: 3E04305 Introduction of Other Antineoplastic into Central Vein, Percutaneous Approach (ICD-10-PCS; principal; 2019-02-17)
PROC: 3E0430M Introduction of Antineoplastic, Monoclonal Antibody, into Central Vein, Percutaneous Approach (ICD-10-PCS; 2019-02-17)
PROC: 3E0433Z Introduction of Anti-inflammatory into Central Vein, Percutaneous Approach (ICD-10-PCS; 2019-02-17)
DX: Z51.11 Encounter for antineoplastic chemotherapy (principal); C50.919 Malignant neoplasm of unspecified site of unspecified female breast
CPT/HCPCS: 96413; 96367; 96417; J9390; J2405; J7050; J1100; J1642; J9306; J9355; 96411

== ENCOUNTER 2019-03-10 09:37 | Outpatient (CLI) | payer MEDICARE ==
[~2019-03-10 09:37] MED LIST changes: -CARBOPLATIN IV PRN; -DEXAMETH 10 MG/ONDANSETRON 16 MG in NS 50 ML IV PRN
[2019-03-10 10:16] VITALS: BP 133/75
[2019-03-10] MEDS ORDERED: TRASTUZUMAB IV PRN (11:16)
[2019-03-10] MEDS ORDERED: NORMAL SALINE IV PRN (11:16)
== END 2019-03-10 13:51 | disposition home or self-care (01) ==
LOC: II 09:37 → 5TH 09:41 → II 13:51
PROVIDERS: ATTEND Internal Medicine Hematology & Oncology
PROC: 3E0430M Introduction of Antineoplastic, Monoclonal Antibody, into Central Vein, Percutaneous Approach (ICD-10-PCS; principal; 2019-03-10)
PROC: 3E0433Z Introduction of Anti-inflammatory into Central Vein, Percutaneous Approach (ICD-10-PCS; 2019-03-10)
DX: Z51.11 Encounter for antineoplastic chemotherapy (principal); C50.919 Malignant neoplasm of unspecified site of unspecified female breast
CPT/HCPCS: 96413; 96367; 96417; J9390; J2405; J7050; J1100; J9306; J9355; J1642; 96411

== ENCOUNTER 2019-03-17 09:01 | Outpatient (CLI) | payer MEDICARE ==
[~2019-03-17 09:01] MED LIST changes: -PERTUZUMAB 420 MG in NORMAL SALINE 250 ML IV PRN; -TRASTUZUMAB IV PRN
[2019-03-17 10:02] VITALS: BP 125/72
== END 2019-03-17 10:17 | disposition home or self-care (01) ==
LOC: II 09:01 → 5TH 09:01 → II 10:17
PROVIDERS: ATTEND Internal Medicine Hematology & Oncology
PROC: 3E04305 Introduction of Other Antineoplastic into Central Vein, Percutaneous Approach (ICD-10-PCS; principal; 2019-03-17)
PROC: 3E0433Z Introduction of Anti-inflammatory into Central Vein, Percutaneous Approach (ICD-10-PCS; 2019-03-17)
DX: Z51.11 Encounter for antineoplastic chemotherapy (principal); C50.912 Malignant neoplasm of unspecified site of left female breast; D70.9 Neutropenia, unspecified; G89.29 Other chronic pain; M89.8X9 Other specified disorders of bone, unspecified site; M25.519 Pain in unspecified shoulder
CPT/HCPCS: 96409; 96367; J9390; J2405; J1100; J1642

== ENCOUNTER → 2019-03-28 | Outpatient (CLI) | payer MEDICAID, MEDICARE ==
--- NOTE | 2019-03-28 13:54 | RADIOLOGY REPORT (SQ) ---
EXAM DESCRIPTION: NM WHOLE BODY BONE SCAN COMPLETED DATE/TIME: 03/28/2019 12:55 pm REASON FOR STUDY: (C50.912)MALIGNANT NEOPLASM OF UNSPECIFIED SITE OF LEFT FEMALE BREAST C50.912 MAL IGNANT NEOPLASM OF UNSPECIFIED SITE OF LEFT FEMAL COMPARISON: Bone scan 10/27/2011 RADIONUCLIDE AND DOSE: 20 millicuries Tc99m HDP. The route of agent administration: Intravenous. ADDITIONAL DRUGS AND DOSES: None. TECHNIQUE: Routine delayed images at 3 hour post radionuclide injection acquired of the bony skeleto n including anterior and posterior whole-body projections and additional focused images as needed. LIMITATIONS: None. FINDINGS: BONES: Normal visualization without areas of photopenia or increased bony uptake of radiop harmaceutical. KIDNEYS: Symmetric excretion without obstruction. OTHER: No other significant finding. IMPRESSION: NORMAL BONE SCAN. COMMENT: Quality measure 147: Current bone scan is compared with any available plain radiographs, p rior bone scans, and CT/MRI. TECHNICAL DOCUMENTATION: JOB ID: [id number] [employer]- All Rights Reserved Reading location - IP/workstation name: [email or web address]
== END ==
LOC: RAD 08:28
PROVIDERS: ATTEND Nurse Practitioner Family
DX: C50.912 Malignant neoplasm of unspecified site of left female breast (principal)
CPT/HCPCS: 78306; A9561; Q9969

== ENCOUNTER → 2019-04-01 | Outpatient (CLI) | payer MEDICAID, MEDICARE ==
--- NOTE | 2019-04-01 13:03 | RADIOLOGY REPORT (SQ) ---
EXAM DESCRIPTION: NM MUGA REST COMPLETED DATE/TIME: 04/01/2019 12:47 pm REASON FOR STUDY: ENCTR FOR F/U EXAM, AFTER COMPLETED TX FOR MALIGNANT NEOPLASM (Z08) Z08 ENCNTR FO R FOLLOW-UP EXAM AFTER TRTMT FOR MALIGNANT NEOP COMPARISON: 10/28/2018 RADIONUCLIDE AND DOSE: 24 mCi technetium 99m labeled red blood cells The route of agent administration: Intravenous TECHNIQUE: Following administration of the radionuclide, gated images of the heart are obtained in t hree projections. Left ventricular functional analysis performed. LIMITATIONS: None. FINDINGS: LEFT VENTRICULAR FUNCTION: EJECTION FRACTION: 67%. END-DIASTOLIC VOLUME: 116 mL. END-SYSTOLIC VOLUME: 36 mL. WALL MOTION: No focal wall motion abnormalities. OTHER: No other significant finding. IMPRESSION: NORMAL CARDIAC MUGA STUDY. NORMAL LEFT VENTRICULAR FUNCTION WITH VALUES ABOVE. TECHNICAL DOCUMENTATION: JOB ID: [id number] [employer]- All Rights Reserved Reading location - IP/workstation name: [email or web address]
== END ==
LOC: RAD 10:43
PROVIDERS: ATTEND Nurse Practitioner Family
DX: Z08 Encounter for follow-up examination after completed treatment for malignant neoplasm (principal); Z79.899 Other long term (current) drug therapy
CPT/HCPCS: 78472; A9560; Q9969

== ENCOUNTER → 2019-04-03 | Outpatient (CLI) | payer MEDICAID, MEDICARE ==
--- NOTE | 2019-04-04 10:59 | RADIOLOGY REPORT (SQ) ---
EXAM DESCRIPTION: PET CT SKULL/THIGH COMPLETED DATE/TIME: 04/03/2019 8:49 pm REASON FOR STUDY: (C50.912)MALIGNANT NEOPLASM OF UNSPECIFIED SITE OF LEFT FEMALE BREAST C50.912 MAL IGNANT NEOPLASM OF UNSPECIFIED SITE OF LEFT FEMAL COMPARISON: CT scan dated 08/17/2018. PET scans dated 08/18/2017 and 11/13/2013. RADIONUCLIDE AND DOSE: 10 mCi F18 FDG The route of agent administration: Intravenous FASTING BLOOD SUGAR: 75 mg/dl CONTRAST TYPE AND DOSE: No CT contrast given. TECHNIQUE: Blood glucose level was verified. Above dose of FDG was injected intravenously. 2-D seg mented attenuation correction images were obtained from the base of the skull to the midthighs. Nonc ontrast CT images were obtained for attenuation correction and fusion with emission images. CT image s were performed without oral or intravenous contrast and are not sensitive for parenchymal lesions. A series of overlapping emission PET images were obtained. Images reviewed and manipulated at [facility] by the radiologist. Images stored on PACS. LIMITATIONS: None. FINDINGS: HEAD AND NECK: No areas of abnormal metabolic activity in the soft tissues of the head and neck. CHEST: Spiculated mass in the right apex currently measures 1.0 x 2.1 cm (axial series 3, image 49). Previous maximum measurement was 2.3 cm. There is a focal area of increased activity in this mass w ith mean SUV 7.35. Irregular subpleural nodule in the posterior right apex (axial series 3, image 47 ) measures 9 mm, unchanged. No abnormal activity. Focal density in the anterior left upper lobe is also unchanged with no abnormal activity. ABDOMEN AND PELVIS: No areas of abnormal metabolic activity in the abdomen or pelvis. Expected physi ologic activity is present in the genitourinary system and bowel. PROXIMAL LOWER EXTREMITIES: No areas of abnormal metabolic activity in the soft tissues of the lower extremities. BONES: No abnormal metabolic activity in the visualized skeleton. ADDITIONAL CT FINDINGS: Right side vascular port. Left mastectomy with clips in the left axilla. Ir regular cystic lesion in the left kidney, unchanged. No additional significant findings on the nonco ntrast CT images. OTHER: Background blood pool activity mean SUV 1.4. Background liver activity mean SUV 2.18. No oth er significant findings. IMPRESSION: 1. THE SPICULATED MASS IN THE RIGHT LUNG APEX IS UNCHANGED ON CT IMAGING. THERE IS A FOCAL AREA OF I NCREASED ACTIVITY ASSOCIATED WITH THIS MASS (MEAN SUV 7.35) CONSISTENT WITH ACTIVE DISEASE. SMALL BENAVIDES BPLEURAL NODULE IN THE POSTERIOR RIGHT LUNG APEX IS UNCHANGED ON CT AND THERE IS NO ACTIVITY ON PET I MAGING. THERE IS A STABLE FOCAL AREA OF SCARRING IN THE ANTERIOR LEFT UPPER LOBE, UNCHANGED, WITH NO ABNORMAL ACTIVITY. 2. THE REMAINDER OF THE PET SCAN IS OTHERWISE UNREMARKABLE. NO OTHER AREAS OF ABNORMAL ACTIVITY. IN CIDENTAL CT FINDINGS ABOVE. TECHNICAL DOCUMENTATION: JOB ID: [id number] [employer]- All Rights Reserved Reading location - IP/workstation name: [email or web address]
== END ==
LOC: RAD 17:16
PROVIDERS: ATTEND Internal Medicine
DX: C50.912 Malignant neoplasm of unspecified site of left female breast (principal); R91.8 Other nonspecific abnormal finding of lung field
CPT/HCPCS: 78815; A9552

== ENCOUNTER 2019-05-11 08:48 | Day surgery (SDC) | payer MEDICARE ==
[2019-05-11 10:05] LABS: MEAN CORPUSCULAR HEMOGLOBIN 29.7 pg (27.0-33.4); MEAN CORPUSCULAR HGB CONC 33.4 g/dL (32.0-36.0); MEAN CORPUSCULAR VOLUME 89 fl (80-97); PLATELET COUNT 202 10^3/uL (150-450); RED BLOOD COUNT 3.71 10^6/uL (3.72-5.28); RED CELL DISTRIBUTION WIDTH 13.9 % (11.5-14.0); WHITE BLOOD COUNT 1.7 10^3/uL (4.0-10.5)
[2019-05-11 10:11] LABS: INTERNATIONAL RATION (INR) 1.08
[2019-05-11 10:12] LABS: PARTIAL THROMBOPLASTIN TIME 28.8 SEC (23.5-35.8)
[2019-05-11 10:24] LABS: BLOOD UREA NITROGEN 15 mg/dL (7-20)
[2019-05-11] MEDS ORDERED: MIDAZOLAM 2 MG/2 ML INJ ONE (11:12)
[2019-05-11] MEDS ORDERED: FENTANYL CITRATE INJ/PF 100 MCG/2 ML AMPUL ONE (11:12)
--- NOTE | 2019-05-11 13:21 | RADIOLOGY REPORT (SQ) ---
EXAM DESCRIPTION: CHEST SINGLE VIEW COMPLETED DATE/TIME: 05/11/2019 12:19 pm REASON FOR STUDY: POST LUNG BIOPSY COMPARISON: CT of the chest from 05/11/2019 and PA and lateral views of the chest from 06/14/2018. EXAM PARAMETERS: NUMBER OF VIEWS: One view. TECHNIQUE: Single frontal radiographic view of the chest acquired. RADIATION DOSE: NA LIMITATIONS: None. FINDINGS: LUNGS AND PLEURA: Status post CT-guided that a biopsy of a right upper lobe lesion. There is no postprocedural pneumothorax. The left apical scarring is unchanged. There is no consolidatio n or pleural effusion. MEDIASTINUM AND HILAR STRUCTURES: Stable mediastinal and hilar contours. HEART AND VASCULAR STRUCTURES: Stable cardiac silhouette. BONES: No acute findings. HARDWARE: Stable right upper extremity single-lumen port and surgical clips that project over the lef t axilla and inferior left hemithorax. OTHER: No other finding. IMPRESSION: No postprocedural pneumothorax. TECHNICAL DOCUMENTATION: JOB ID: [id number] [employer]- All Rights Reserved Reading location - IP/workstation name: [email or web address]
[2019-05-11 14:30] VITALS: BP 126/58
--- NOTE | 2019-05-11 14:44 | RADIOLOGY REPORT (SQ) ---
EXAM DESCRIPTION: CHEST SINGLE VIEW COMPLETED DATE/TIME: 05/11/2019 2:25 pm REASON FOR STUDY: POST LUNG BIOPSY *2 HOUR FILM* COMPARISON: 05/11/2019 EXAM PARAMETERS: NUMBER OF VIEWS: One view. TECHNIQUE: Single frontal radiographic view of the chest acquired. RADIATION DOSE: NA LIMITATIONS: None. FINDINGS: LUNGS AND PLEURA: Post biopsy changes at the right lung apex. No appreciable pneumothorax . No new effusion. MEDIASTINUM AND HILAR STRUCTURES: No masses. Contour normal. HEART AND VASCULAR STRUCTURES: Stable. BONES: No acute findings. HARDWARE: Right arm port with catheter tip at SVC. Surgical clips overlie left axilla. OTHER: No other significant finding. IMPRESSION: No pneumothorax post right apical nodule biopsy. TECHNICAL DOCUMENTATION: JOB ID: [id number] [employer]- All Rights Reserved Reading location - IP/workstation name: [email or web address]
--- NOTE | 2019-05-11 14:58 | RADIOLOGY REPORT (SQ) ---
EXAM DESCRIPTION: CT BIOPSY LUNG/MEDIASTINUM; CT NEEDLE PLACEMENT COMPLETED DATE/TIME: 05/11/2019 12:08 pm REASON FOR STUDY: MALIGNANT NEOPLASM OF UPPEROUTER QUAD LEFT BREAST C50.412 MALIG NEOPLASM OF UPPER -OUTER QUADRANT OF LEFT FEMAL Z79.01 ASSISTED (CURRENT) USE OF ANTICOAGULANTS COMPARISON: None. TECHNIQUE: CT guided biopsy of the right apical pulmonary nodule performed with conscious sedation. CT Fluoroscopy Time: 44.[address] scanners at this facility use dose modulation, iterative reconstruction, and/or weight based d osing when appropriate to reduce radiation dose to as low as reasonably achievable (ALARA). [facility]: Dose Right [facility]: CareDose [facility]: Dose Right [facility]: Teradose 4D [facility]: [employer] RADIATION DOSE: CT Rad equipment meets quality standard of care and radiation dose reduction techniq ues were employed. CTDIvol: 4.0 - 12.4 mGy. DLP: 583 mGy-cm. mGy. FINDINGS: After obtaining informed consent and explaining the risks and benefits of conscious sedati on,the patient agreed to the procedure. Prior to the procedure, a time out was performed to verify th e patient's identity and planned procedure. IV sedation was administered and physician direction by the registered nurse using 0.5 milligrams of Versed and 100 micrograms of fentanyl, for conscious sedation. Physiologic monitoring was provided be fore, during, and after sedation. The total sedation time was 40 minutes. Documentation face to face time, the performing proceduralist, spent monitoring the patient: [address] scanning was performed to localize the percutaneous site for the biopsy approach. After sterile skin prep and local lidocaine for skin and deep tissue anesthesia, a 19 gauge introduce r needle was advanced toward the right apical pulmonary nodule under CT fluoroscopic guidance. After needle position confirmed multiple 20 gauge core biopsies were obtained. The samples were placed in appropriate solution and sent to the lab for analysis. The system was removed and hemostasis achiev ed with manual compression. A sterile dressing was applied. Patient tolerated the procedure well left the CT suite in stable condition. Pathology is pending at the time of dictation. IMPRESSION: CT fluoroscopy guided biopsy of the right apical pulmonary nodule as detailed above. COMMENT: Quality ID 145: Final reports for procedures using fluoroscopy that document radiation exp osure indices, or exposure time and number of fluorographic images (if radiation exposure indices are not available) Patient medication list reviewed: Yes- Quality ID# 130:Eligible professional attests to documenting i n the medical record they obtained, updated, or reviewed the patient's current medications.. TECHNICAL DOCUMENTATION: JOB ID: [id number] Quality ID# 436: Final reports with documentation of one or more dose reduction techniques (e.g., Aut omated exposure control, adjustment of the mA and/or kV according to patient size, use of iterative r econstruction technique) 2010 [employer]- All Rights Reserved Reading location - IP/workstation name: [email or web address]Whit
== END 2019-05-11 15:15 | disposition home or self-care (01) ==
LOC: RAD 08:48
PROVIDERS: ATTEND Internal Medicine
DX: C50.412 Malignant neoplasm of upper-outer quadrant of left female breast (principal); Z79.01 Long term (current) use of anticoagulants; Z79.899 Other long term (current) drug therapy
CPT/HCPCS: 36415; 84520; 82565; 85027; 85610; 85730; 88342 ×2; 88341 ×2; 88305 ×2; 71045; 77012; 32405; J2250; J3010

== ENCOUNTER → 2019-07-22 | Outpatient (CLI) | payer MEDICARE, MEDICAID ==
--- NOTE | 2019-07-22 14:17 | RADIOLOGY REPORT (SQ) ---
EXAM DESCRIPTION: NM WHOLE BODY BONE SCAN COMPLETED DATE/TIME: 07/22/2019 1:47 pm REASON FOR STUDY: C50.412 MALIG NEOPLASM OF UPPER-OUTER QUADRANT OF LEFT FEMALE BREAST C50.412 SELENE G NEOPLASM OF UPPER-OUTER QUADRANT OF LEFT FEMAL COMPARISON: 03/28/2019 RADIONUCLIDE AND DOSE: 20 millicuries Tc99m HDP. The route of agent administration: Intravenous. ADDITIONAL DRUGS AND DOSES: None. TECHNIQUE: Routine delayed images at 3 hours post radionuclide injection acquired of the bony skelet on including anterior and posterior whole-body projections and additional focused images as needed. LIMITATIONS: None. FINDINGS: BONES: Normal visualization without areas of photopenia or increased bony uptake of radiop harmaceutical. KIDNEYS: Symmetric excretion without obstruction. OTHER: No other significant finding. IMPRESSION: NORMAL BONE SCAN. COMMENT: Quality measure 147: Current bone scan is compared with any available plain radiographs, p rior bone scans, and CT/MRI. TECHNICAL DOCUMENTATION: JOB ID: [id number] 2010 [employer]- All Rights Reserved Reading location - IP/workstation name: [email or web address]
== END ==
LOC: RAD 09:50
PROVIDERS: ATTEND Physician Assistant Medical
DX: C50.412 Malignant neoplasm of upper-outer quadrant of left female breast (principal)
CPT/HCPCS: 78306; A9561; Q9969

== ENCOUNTER → 2019-07-26 | Outpatient (CLI) | payer MEDICARE, MEDICAID ==
--- NOTE | 2019-07-26 15:11 | RADIOLOGY REPORT (SQ) ---
EXAM DESCRIPTION: CT CHEST WITH; CT ABD/PELVIS WITH IV ONLY COMPLETED DATE/TIME: 07/26/2019 2:37 pm; 07/26/2019 2:38 pm REASON FOR STUDY: C50.412 MALIG NEOPLASM OF UPPER-OUTER QUADRANT OF LEFT FEMALE BREAST C50.412 SELENE G NEOPLASM OF UPPER-OUTER QUADRANT OF LEFT FEMAL COMPARISON: [address] studies[address] 04/03/2019 PET-CT study. Bone scan from recently. CONTRAST TYPE AND DOSE: contrast/concentration: Isovue 350.00 mg/ml; Total Contrast Delivered: 58.0 ml; Total Saline Delivered: 65.0 ml RENAL FUNCTION: GFR > 60. TECHNIQUE: CT scan of the chest performed using helical scanning technique with dynamic intravenous contrast injection. Images reviewed with lung, soft tissue and bone windows. Reconstructed coronal a nd sagittal MPR images reviewed. All images stored on PACS. CT scan of the abdomen and pelvis performed with intravenous and with oral contrastusing helical scan caleb technique with dynamic intravenous contrast injection. Images reviewed with lung, soft tissue a nd bone windows. Reconstructed coronal and sagittal MPR images reviewed. Delayed images for evaluat ion of the urinary system also acquired and evaluated. All images stored on PACS. All CT scanners at this facility use dose modulation, iterative reconstruction, and/or weight based d osing when appropriate to reduce radiation dose to as low as reasonably achievable (ALARA). [facility]: Dose Right [facility]: CareDose [facility]: Dose Right [facility]: Teradose 4D [facility]: [employer] RADIATION DOSE: CT Rad equipment meets quality standard of care and radiation dose reduction techniq ues were employed. CTDIvol: 4.5 - 4.6 mGy. DLP: 662 mGy-cm. . LIMITATIONS: None. FINDINGS: CHEST: LUNGS AND PLEURA: Lobulated spiculated mass in the right upper lobe, similar configuration. Maximal transverse dimension is close to 2.8 cm. Unclear if this is due to differences in technique or progr ession. Additional areas of scarring in the right upper lobe and lingula, stable. No new lesions or developing pleural fluid. HILAR AND MEDIASTINAL STRUCTURES: No identified masses or abnormal nodes. HEART AND VASCULAR STRUCTURES: No aneurysm or dissection. No central pulmonary emboli. No pericardi al effusion. HARDWARE: None. THYROID AND OTHER SOFT TISSUES: Mild nodularity right lobe, chronic. Status post left mastectomy and left axillary dissection. No axillary adenopathy. BONES: No significant finding. OTHER: No other significant finding. ABDOMEN AND PELVIS: LIVER: Normal size. No masses. No dilated ducts. SPLEEN: Normal size. No focal lesions. PANCREAS: No masses. No significant calcifications. No adjacent inflammation or peripancreatic fluid collections. Pancreatic duct not dilated. GALLBLADDER: No identified stones by CT criteria. No inflammatory changes to suggest cholecystitis. ADRENAL GLANDS: No significant masses or asymmetry. RIGHT KIDNEY AND URETER: No solid masses. No significant calcification. No hydronephrosis or hydroure ter. LEFT KIDNEY AND URETER: Parapelvic cysts. No solid mass, stones or obstruction detected. AORTA AND VESSELS: No aneurysm. No dissection. Renal arteries, SMA, celiac without stenosis. RETROPERITONEUM: No retroperitoneal adenopathy, hemorrhage or masses. BOWEL AND PERITONEAL CAVITY: No masses or inflammatory changes. No free fluid or peritoneal masses. APPENDIX: Normal. ABDOMINAL WALL: No masses. No hernias. PELVIS: No mass or free fluid. Normal bladder. BONES: No developing or suspicious lesions. Chronic right iliac wing bone island. OTHER: No other significant finding. IMPRESSION: 1. Mass in the right upper lobe measures slightly larger compared to priors. On today's study, maxim al dimension in the transverse plane is close to 2.8 cm. Previous maximal dimension on PET study is closer to 2.2 cm. Some of this could be due to technique but subtle progression is also possible. 2. No suspicious abdominopelvic findings. TECHNICAL DOCUMENTATION: JOB ID: [id number] Quality ID # 436: Final reports with documentation of one or more dose reduction techniques (e.g., Au tomated exposure control, adjustment of the mA and/or kV according to patient size, use of iterative reconstruction technique) 2010 [employer]- All Rights Reserved Reading location - IP/workstation name: [email or web address]
== END ==
LOC: RAD 14:04
PROVIDERS: ATTEND Physician Assistant Medical
DX: C50.412 Malignant neoplasm of upper-outer quadrant of left female breast (principal)
CPT/HCPCS: 71260; 74177

== ENCOUNTER → 2019-07-29 | Outpatient (CLI) | payer MEDICARE, MEDICAID ==
--- NOTE | 2019-07-29 16:54 | RADIOLOGY REPORT (SQ) ---
EXAM DESCRIPTION: NM MUGA REST COMPLETED DATE/TIME: 07/29/2019 12:41 pm REASON FOR STUDY: Z08 ENCNTR FOR FOLLOW-UP EXAM AFTER TRTMT FOR MALIGNANT NEOPLASM COMPARISON: None. RADIONUCLIDE AND DOSE: 26.2 mCi technetium 99 M ADDITIONAL DRUGS AND DOSES: None. TECHNIQUE: Gated cardiac imaging. LIMITATIONS: None. FINDINGS: EF 61%. End-diastolic volume 110 cc End systolic volume 45 cc IMPRESSION: Cardiac volumes as above. TECHNICAL DOCUMENTATION: JOB ID: [id number] 2010 [employer]- All Rights Reserved Reading location - IP/workstation name: [email or web address]
== END ==
LOC: RAD 11:06
PROVIDERS: ATTEND Physician Assistant Medical
DX: Z13.6 Encounter for screening for cardiovascular disorders (principal); Z08 Encounter for follow-up examination after completed treatment for malignant neoplasm; C50.412 Malignant neoplasm of upper-outer quadrant of left female breast; Z79.899 Other long term (current) drug therapy; Z51.81 Encounter for therapeutic drug level monitoring; Z51.11 Encounter for antineoplastic chemotherapy
CPT/HCPCS: 78472; A9560; Q9969

== ENCOUNTER → 2019-11-10 | Outpatient (CLI) | payer MEDICARE ==
[2019-11-10 09:45] VITALS: BP 128/86
--- NOTE | 2019-11-10 09:45 | ER RDC ASSESSMENT REPORT ---
Intake - In the Last 14 days Have you traveled outside [place]?: No Have you been in close contact with someone CONFIRMED: No Worked in Healthcare?: No - Symptoms Subjective Fever([place] feverish): No Chills: Yes Muscule Aches: Yes Runny Nose: Yes Sore Throat: No Cough (New or worsening chronic cough): Yes Shortness of breath: No Nausea or Vomiting: Yes Headache: Yes Abdominal Pain: Yes Diarrhea(3 or more loose stools in last 24 hours): No - Do you have any of the following Chronic lung disease: Asthma or emphysema or COPD: No Cystic Fibrosis: No Diabetes: No High Blood Pressure: No Cardiovascular Disease: No Chronic Kidney Disease: No Chronic Liver Disease: No Chronic blood disorder like Sickle Cell Disease: No 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: Yes Immune System Comment: Patient has active breast cancer and having chemo therapy Neurologic condition that limits movement: No Developmental delay - Moderate to Severe: No Recent (within past 2 weeks) or current : No Morbid Obesity (>100 pounds over ideal weight): No Obesity Comment: Height 5 feet 2 inches weight 112 pounds - Objective Temperature: 96 F Pulse Rate: 87 Respiratory Rate: 20 Blood Pressure: 128/86 O2 Sat by Pulse Oximetry: 96 Objective: Given above, testing performed: If Testing Performed: Test Specimen Type Sent to General - General Information source: Patient Notes: Patient here at [facility] for COVID testing started to experience symptoms last week with a cough worsened yesterday November 08 with chills muscle aches nausea. Ports loss of taste is currently receiving chemo related to breast cancer had a chemo scheduled today was canceled by oncologist also complains of a papular rash noted on her lower abdomen reports improving after medication provided by oncologist Dr. Blossom cole. Denies shortness of breath or sore throat. - Related Data Allergies/Adverse Reactions: levocetirizine [Levocetirizine] Allergy (Severe, Verified 05/10/19 10:35) rash Shellfish * [Shellfish] Allergy (Severe, Verified 05/10/19 10:35) Shortness of Breath lorazepam [From Ativan] Adverse Reaction (Severe, Verified 05/10/19 10:35) confused hydrocodone bitartrate [From Vicodin] Adverse Reaction (Verified 05/10/19 10:35) confused n and v Past Medical History - General Information source: Patient - Social History Smoking Status: Never Smoker Family History: Reviewed & Not Pertinent, CVA, DM, Hypertension, Malignancy - Past Medical History Cardiac Medical History: Denies: Hx Coronary Artery Disease, Hx Heart Attack, Hx Hypertension Pulmonary Medical History: Reports: Hx Pneumonia Denies: Hx Asthma, Hx Bronchitis, Hx COPD, Hx Tuberculosis Neurological Medical History: Reports: Hx Migraine. Denies: Hx Cerebrovascular Accident, Hx Seizures Endocrine Medical History: Denies: Hx Diabetes Mellitus Type 2 Renal/ Medical History: Denies: Hx Peritoneal Dialysis Malignancy Medical History: Reports: Hx Breast Cancer Musculoskeletal Medical History: Denies Hx Arthritis Psychiatric Medical History: Reports: Hx Depression - anxiety Past Surgical History: Reports: Hx Breast Surgery - L mastectomy, Hx Mastectomy - left, Hx Orthopedic Surgery - left knee, right shoulder. Denies: Hx Pacemaker Physical Exam - General General appearance: Appears well, Alert In distress: None Notes: PHYSICAL EXAMINATION: GENERAL: Well-appearing and in no acute distress. HEAD: Atraumatic, normocephalic. EYES: sclera anicteric, conjunctiva are normal. ENT: nares patent. Moist mucous membranes. NECK: Normal range of motion, supple without lymphadenopathy LUNGS: CTAB and equal. No wheezes rales or rhonchi. Resp even and unlabored. Lung sounds clear. HEART: Regular rate and rhythm without murmurs ABDOMEN: Soft, nontender, normal bowel sounds, no guarding. EXTREMITIES: No cyanosis. NEUROLOGICAL: . Normal speech. PSYCH: Normal mood, normal affect. SKIN: Warm, Dry, normal turgor, no rashes or lesions noted Diagnostic Results Laboratory Results: Patient informed of negative rapid strep and negative rapid flu results pending strep culture pending COVID testing results. Patient provided instructions regarding COVID to include: As a person under investigation for Covid 19, the [place] department of Health and Human Services, division of public health advises you to adhere to the following guidance until your test results are reported to you. If your test result is positive, you will receive additional information from your provider and your local health department at that time. Remain at home until you are cleared by the health provider or public health authorities. Keep a log of visitors to your home, notify any visitors to your home of your isolation status. If you plan to move to a new address or leave the county, notify the local health department in your County. Call your doctor or seek care if you have an urgent medical need. Before seeking medical care, call ahead to get instructions from the provider before arriving at the medical office clinic or hospital. Notify them that you are being tested for the virus that causes Covid 19 so that arrangements can be made, as necessary, to prevent transmission to others in the healthcare setting. Next, notify the local health department in your county. If a medical emergency arises and you need to call 911, inform the first responders that you are being tested for the virus that causes Covid 19. Next, notify the local health department in your county. Patient Education/Counseling Counseling/Education: Patient presents with upper respiratory symptoms worrisome for possible Covid 19. Patient does not have emergency worring symptoms such as difficulty breathing, shortness of breath, chest pain, pressure, confusion or cyanosis. Patient appears suitable for discharge. Patient instructed to follow up with Dr. Arleth trejo. To ED for persistent or worsening symptoms. Patient's vital signs are stable and patient is nontoxic in appearance. Good return precautions have been discussed with patient, patient verbalized understanding and is agreeable with discharge plan of care at this time. RDC Discharge - Discharge Clinical Impression: COVID - 19 SCREENING Condition: Stable Disposition: Home; Selfcare
[2019-11-10 12:18] LABS: A TYPE INFLUENZA AG NEGATIVE (NEGATIVE); B INFLUENZA AG NEGATIVE (NEGATIVE)
== END ==
LOC: RDC 09:01
PROVIDERS: ATTEND Nurse Practitioner Family
DX: Z20.828 Contact with and (suspected) exposure to other viral communicable diseases (principal); R68.83 Chills (without fever); R05 Cough; R11.0 Nausea; M79.10 Myalgia, unspecified site; R10.9 Unspecified abdominal pain; C50.919 Malignant neoplasm of unspecified site of unspecified female breast; R43.9 Unspecified disturbances of smell and taste; Z88.6 Allergy status to analgesic agent; Z88.8 Allergy status to other drugs, medicaments and biological substances; Z91.013 Allergy to seafood
CPT/HCPCS: 36415; 87070; 87880; 87804; U0003; C9803; 87635; 99201; 99211

== ENCOUNTER → 2019-11-24 | Outpatient (CLI) | payer MEDICAID, MEDICARE ==
--- NOTE | 2019-11-24 13:48 | RADIOLOGY REPORT (SQ) ---
EXAM DESCRIPTION: CT CHEST WITH IMAGES COMPLETED DATE/TIME: 11/24/2019 9:49 am REASON FOR STUDY: MALIG NEOPLASM OF UPPER-OUTER QUADRANT OF LEFT FEMALE BREAST C50.412 MALIG NEOPLA SM OF UPPER-OUTER QUADRANT OF LEFT FEMAL COMPARISON: 07/26/2019 TECHNIQUE: CT scan of the chest performed using helical scanning technique with dynamic intravenous contrast injection. Images reviewed with lung, soft tissue and bone windows. Reconstructed coronal and sagittal MPR and MIP images reviewed. All images stored on PACS. All CT scanners at this facility use dose modulation, iterative reconstruction, and/or weight based d osing when appropriate to reduce radiation dose to as low as reasonably achievable (ALARA). [facility]: Dose Right [facility]: CareDose [facility]: Dose Right [facility]: Teradose 4D [facility]: [employer] CONTRAST TYPE AND DOSE: 59 cc Omnipaque 350- low osmolar. RENAL FUNCTION: Creatinine 0.7 RADIATION DOSE: . LIMITATIONS: None. FINDINGS: LUNGS AND PLEURA: Stable lobulated mass in the right upper lobe maximum transverse diamete r is 28.1 mm. No change. The only change in this area is that there appears to be less spiculation. There is stable scarring in the left upper lobe posteriorly and in the lingula. There are no new p ulmonary nodules. There is no infiltrate or effusion. HILAR AND MEDIASTINAL STRUCTURES: No identified masses or abnormal nodes. HEART AND VASCULAR STRUCTURES: No aneurysm or dissection. No central pulmonary emboli. No pericardi al effusion. HARDWARE: None in the chest. UPPER ABDOMEN: See separate report of the CT of the abdomen. THYROID AND OTHER SOFT TISSUES: 10 mm low-density lesion in the right lobe of the thyroid. BONES: No significant finding. OTHER: No other significant finding. IMPRESSION: 1. Lobulated mass in the right upper lobe is stable in size. There appears to be decre ased spiculation. 2. There are areas of scarring in the left upper lobe and lingula that are stable. 3. Low-density lesion in the right lobe of the thyroid appears stable. TECHNICAL DOCUMENTATION: JOB ID: [id number] Quality ID # [id number]: Final reports with documentation of one or more dose reduction techniques (e.g., Au tomated exposure control, adjustment of the mA and/or kV according to patient size, use of iterative reconstruction technique) 2010 [employer]- All Rights Reserved Reading location - IP/workstation name: [email or web address]
--- NOTE | 2019-11-24 14:14 | RADIOLOGY REPORT (SQ) ---
EXAM DESCRIPTION: CT ABD/PELVIS WITH IV ONLY IMAGES COMPLETED DATE/TIME: 11/24/2019 9:49 am REASON FOR STUDY: MALIG NEOPLASM OF UPPER-OUTER QUADRANT OF LEFT FEMALE BREAST C50.412 MALIG NEOPLA SM OF UPPER-OUTER QUADRANT OF LEFT FEMAL COMPARISON: 07/26/2019 TECHNIQUE: CT scan of the abdomen and pelvis performed using helical scanning technique with dynamic intravenous contrast injection. No oral contrast. Images reviewed with lung, soft tissue, and bone windows. Reconstructed coronal and sagittal MPR images reviewed. Delayed images for evaluation of the urinary system also acquired. All images stored on PACS. All CT scanners at this facility use dose modulation, iterative reconstruction, and/or weight based d osing when appropriate to reduce radiation dose to as low as reasonably achievable (ALARA). [facility]: Dose Right [facility]: CareDose [facility]: Dose Right [facility]: Teradose 4D [facility]: [employer] CONTRAST TYPE AND DOSE: contrast/concentration: Isovue 350.00 mmol/ml; Total Contrast Delivered: 59. 0 ml; Total Saline Delivered: 56.0 ml RENAL FUNCTION: Creatinine 0.7 RADIATION DOSE: CT Rad equipment meets quality standard of care and radiation dose reduction techniq ues were employed. CTDIvol: 4.4 - 4.5 mGy. DLP: 810 mGy-cm.. LIMITATIONS: None. FINDINGS: LOWER CHEST: See separate report of the CT of the chest. LIVER: Normal size. No masses. No dilated ducts. SPLEEN: Normal size. No focal lesions. PANCREAS: No masses. No significant calcifications. No adjacent inflammation or peripancreatic fluid collections. Pancreatic duct not dilated. GALLBLADDER: No identified stones by CT criteria. No inflammatory changes to suggest cholecystitis. ADRENAL GLANDS: No significant masses or asymmetry. RIGHT KIDNEY AND URETER: No solid masses. No significant calcifications. No hydronephrosis or hyd roureter. LEFT KIDNEY AND URETER: No solid masses. Prominent cysts in the upper and mid kidney. No significa nt calcifications. No hydronephrosis or hydroureter. AORTA AND VESSELS: No aneurysm. No dissection. Renal arteries, SMA, celiac without stenosis. RETROPERITONEUM: No retroperitoneal adenopathy, hemorrhage or masses. BOWEL AND PERITONEAL CAVITY: There is a large amount retained stool. No evidence of bowel obstructio n. No obvious mass. APPENDIX: Not identified. PELVIS: No mass. No free fluid. Normal bladder. ABDOMINAL WALL: No masses. No hernias. BONES: No significant or acute findings. OTHER: No other significant finding. IMPRESSION: 1. There is no evidence of metastatic disease in the abdomen or pelvis. 2. Constipation. TECHNICAL DOCUMENTATION: JOB ID: [id number] Quality ID # [id number]: Final reports with documentation of one or more dose reduction techniques (e.g., Au tomated exposure control, adjustment of the mA and/or kV according to patient size, use of iterative reconstruction technique) 2010 [employer]- All Rights Reserved Reading location - IP/workstation name: [email or web address]
--- NOTE | 2019-11-25 12:15 | RADIOLOGY REPORT (SQ) ---
EXAM DESCRIPTION: NM WHOLE BODY BONE SCAN IMAGES COMPLETED DATE/TIME: 11/24/2019 1:57 pm REASON FOR STUDY: MALIG NEOPLASM OF UPPER-OUTER QUADRANT OF LEFT FEMALE BREAST C50.412 MALIG NEOPLA SM OF UPPER-OUTER QUADRANT OF LEFT FEMAL COMPARISON: 07/22/2019 03/28/2019 RADIONUCLIDE AND DOSE: 20 millicuries Tc99m HDP. The route of agent administration: Intravenous. ADDITIONAL DRUGS AND DOSES: None. TECHNIQUE: Routine delayed images at 3 hours post radionuclide injection acquired of the bony skelet on including anterior and posterior whole-body projections and additional focused images as needed. LIMITATIONS: None. FINDINGS: BONES: Normal visualization without areas of photopenia or increased bony uptake of radiop harmaceutical. KIDNEYS: Symmetric excretion without obstruction. OTHER: No other significant finding. IMPRESSION: NORMAL BONE SCAN. COMMENT: Quality measure 147: Current bone scan is compared with any available plain radiographs, p rior bone scans, and CT/MRI. TECHNICAL DOCUMENTATION: JOB ID: [id number] 2010 [employer]- All Rights Reserved Reading location - IP/workstation name: [email or web address]
== END ==
LOC: RAD 09:12
PROVIDERS: ATTEND Internal Medicine
DX: C50.412 Malignant neoplasm of upper-outer quadrant of left female breast (principal); N28.1 Cyst of kidney, acquired; K59.00 Constipation, unspecified
CPT/HCPCS: 82565; 78306; 71260; 74177; A9503; Q9969

== ENCOUNTER → 2019-12-07 | Outpatient (CLI) | payer MEDICARE ==
--- NOTE | 2019-12-07 13:05 | RADIOLOGY REPORT (SQ) ---
EXAM DESCRIPTION: NM MUGA REST IMAGES COMPLETED DATE/TIME: 12/07/2019 12:07 pm REASON FOR STUDY: ENCTR FOR F/U EXAM AFTER CHEMO (Z08), BREAST CA (C50.412) Z08 ENCNTR FOR FOLLOW-U P EXAM AFTER TRTMT FOR MALIGNANT NEOP Z51.11 ENCOUNTER FOR ANTINEOPLASTIC CHEMOTHERAPY COMPARISON: 07/29/2019 RADIONUCLIDE AND DOSE: 25 mCi technetium 99m labeled red blood cells The route of agent administration: Intravenous TECHNIQUE: Following administration of the radionuclide, gated images of the heart are obtained in t hree projections. Left ventricular functional analysis performed. LIMITATIONS: None. FINDINGS: LEFT VENTRICULAR FUNCTION: EJECTION FRACTION: 65%. END-DIASTOLIC VOLUME: 95 mL. END-SYSTOLIC VOLUME: 36 mL. WALL MOTION: No focal wall motion abnormalities. OTHER: No other significant finding. IMPRESSION: NORMAL CARDIAC MUGA STUDY. NORMAL LEFT VENTRICULAR FUNCTION WITH VALUES ABOVE. TECHNICAL DOCUMENTATION: JOB ID: [id number] 2010 [employer]- All Rights Reserved Reading location - IP/workstation name: [email or web address]
== END ==
LOC: RAD 11:01
PROVIDERS: ATTEND Physician Assistant Medical
DX: Z08 Encounter for follow-up examination after completed treatment for malignant neoplasm (principal); C50.412 Malignant neoplasm of upper-outer quadrant of left female breast
CPT/HCPCS: 78472; A9560; Q9969

== ENCOUNTER → 2020-01-13 | Outpatient (CLI) | payer MEDICARE, MEDICAID ==
[2020-01-13 13:45] LABS: ANION GAP 8 (5-19); BLOOD UREA NITROGEN 15 mg/dL (7-20); CARBON DIOXIDE 30 mmol/L (22-30); CHLORIDE 101 mmol/L (98-107); GLUCOSE 164 mg/dL (75-110); POTASSIUM 4.3 mmol/L (3.6-5.0)
== END ==
LOC: OD 11:29
PROVIDERS: ATTEND Family Medicine Geriatric Medicine
DX: K21.0 Gastro-esophageal reflux disease with esophagitis (principal); C50.919 Malignant neoplasm of unspecified site of unspecified female breast; F41.1 Generalized anxiety disorder; I10 Essential (primary) hypertension; Z79.899 Other long term (current) drug therapy
CPT/HCPCS: 36415; 80048; 84460

== ENCOUNTER → 2020-02-21 | Outpatient (CLI) | payer MEDICARE, MEDICAID ==
--- NOTE | 2020-02-21 13:21 | RADIOLOGY REPORT (SQ) ---
EXAM DESCRIPTION: CT CHEST WITH IMAGES COMPLETED DATE/TIME: 02/21/2020 9:21 am REASON FOR STUDY: C50.412 MALIG NEOPLASM OF UPPER-OUTER QUADRANT OF LEFT FEMALE BREAST C50.412 MAL IG NEOPLASM OF UPPER-OUTER QUADRANT OF LEFT FEMAL COMPARISON: 11/24/2019 TECHNIQUE: CT scan of the chest performed using helical scanning technique with dynamic intravenous contrast injection. Images reviewed with lung, soft tissue and bone windows. Reconstructed coronal and sagittal MPR and MIP images reviewed. All images stored on PACS. All CT scanners at this facility use dose modulation, iterative reconstruction, and/or weight based d osing when appropriate to reduce radiation dose to as low as reasonably achievable (ALARA). [facility]: Dose Right [facility]: CareDose [facility]: Dose Right [facility]: Teradose 4D [facility]: [employer] CONTRAST TYPE AND DOSE: contrast/concentration: Isovue 350.00 mmol/ml; Total Contrast Delivered: 80. 0 ml; Total Saline Delivered: 45.0 ml RENAL FUNCTION: GFR > 60. RADIATION DOSE: . LIMITATIONS: None. FINDINGS: LUNGS AND PLEURA: Right upper lobe lobulated mass slightly increased in size by my measure ments 2.8 x 3.4 cm, previously 2.6 x 3.0 cm. Stable subpleural rind of tissue in the left upper lobe adjacent to mastectomy consistent with radiation change. Stable perifissural scarring in the left u pper lobe. No new nodules. HILAR AND MEDIASTINAL STRUCTURES: No identified masses or abnormal nodes. HEART AND VASCULAR STRUCTURES: No aneurysm or dissection. No central pulmonary emboli. No pericardi al effusion. HARDWARE: None in the chest. UPPER ABDOMEN: See separate report of the CT of the abdomen. THYROID AND OTHER SOFT TISSUES: Stable cystic nodules right thyroid. BONES: No significant finding. OTHER: No other significant finding. IMPRESSION: Slight increase in size of right upper lobe lobulated mass. Mass was hypermetabolic on PET 04/04/2019. TECHNICAL DOCUMENTATION: JOB ID: [id number] Quality ID # [id number]: Final reports with documentation of one or more dose reduction techniques (e.g., Au tomated exposure control, adjustment of the mA and/or kV according to patient size, use of iterative reconstruction technique) 2010 [employer]- All Rights Reserved Reading location - IP/workstation name: [email or web address]
--- NOTE | 2020-02-21 13:35 | RADIOLOGY REPORT (SQ) ---
EXAM DESCRIPTION: CT ABD/PELVIS WITH IV ONLY IMAGES COMPLETED DATE/TIME: 02/21/2020 9:21 am REASON FOR STUDY: C50.412 MALIG NEOPLASM OF UPPER-OUTER QUADRANT OF LEFT FEMALE BREAST C50.412 MAL IG NEOPLASM OF UPPER-OUTER QUADRANT OF LEFT FEMAL COMPARISON: 11/24/2019 TECHNIQUE: CT scan of the abdomen and pelvis performed using helical scanning technique with dynamic intravenous contrast injection. No oral contrast. Images reviewed with lung, soft tissue, and bone windows. Reconstructed coronal and sagittal MPR images reviewed. Delayed images for evaluation of the urinary system also acquired. All images stored on PACS. All CT scanners at this facility use dose modulation, iterative reconstruction, and/or weight based d osing when appropriate to reduce radiation dose to as low as reasonably achievable (ALARA). [facility]: Dose Right [facility]: CareDose [facility]: Dose Right [facility]: Teradose 4D [facility]: [employer] RENAL FUNCTION: GFR > 60. RADIATION DOSE: CT Rad equipment meets quality standard of care and radiation dose reduction techniq ues were employed. CTDIvol: 4.4 - 4.5 mGy. DLP: 600 mGy-cm.. LIMITATIONS: None. FINDINGS: LOWER CHEST: See separate report of the CT of the chest. LIVER: Normal size. No masses. No dilated ducts. SPLEEN: Normal size. No focal lesions. PANCREAS: No masses. No significant calcifications. No adjacent inflammation or peripancreatic fluid collections. Pancreatic duct not dilated. GALLBLADDER: No identified stones by CT criteria. No inflammatory changes to suggest cholecystitis. ADRENAL GLANDS: No significant masses or asymmetry. RIGHT KIDNEY AND URETER: No solid masses. No significant calcifications. No hydronephrosis or hyd roureter. LEFT KIDNEY AND URETER: Stable cyst and cortical scarring. No solid mass. No significant calcifica tions. No hydronephrosis or hydroureter. AORTA AND VESSELS: No aneurysm. No dissection. Renal arteries, SMA, celiac without stenosis. RETROPERITONEUM: No retroperitoneal adenopathy, hemorrhage or masses. BOWEL AND PERITONEAL CAVITY: No masses or inflammatory changes. No free fluid or peritoneal masses. APPENDIX: Not visualized. PELVIS: No mass. No free fluid. Normal bladder. ABDOMINAL WALL: No masses. No hernias. BONES: No significant or acute findings. OTHER: No other significant finding. IMPRESSION: No evidence of metastatic disease. TECHNICAL DOCUMENTATION: JOB ID: [id number] Quality ID # [id number]: Final reports with documentation of one or more dose reduction techniques (e.g., Au tomated exposure control, adjustment of the mA and/or kV according to patient size, use of iterative reconstruction technique) 2010 [employer]- All Rights Reserved Reading location - IP/workstation name: [email or web address]-
--- NOTE | 2020-02-21 16:12 | RADIOLOGY REPORT (SQ) ---
EXAM DESCRIPTION: NM WHOLE BODY BONE SCAN IMAGES COMPLETED DATE/TIME: 02/21/2020 1:23 pm REASON FOR STUDY: C50.412 MALIG NEOPLASM OF UPPER-OUTER QUADRANT OF LEFT FEMALE BREAST C50.412 SELENE G NEOPLASM OF UPPER-OUTER QUADRANT OF LEFT FEMAL COMPARISON: 11/24/2019 RADIONUCLIDE AND DOSE: 21.9 millicuries Tc99m MDP. The route of agent administration: Intravenous. ADDITIONAL DRUGS AND DOSES: None. TECHNIQUE: Routine delayed images at 3 hour post radionuclide injection acquired of the bony skeleto n including anterior and posterior whole-body projections and additional focused images as needed. LIMITATIONS: None. FINDINGS: BONES: Normal visualization without significant areas of photopenia or increased bony upta ke of radiopharmaceutical. KIDNEYS: Symmetric excretion without obstruction. OTHER: No other significant finding. IMPRESSION: No evidence of metastatic disease. COMMENT: Quality measure 147: Current bone scan is compared with any available plain radiographs, p rior bone scans, and CT/MRI. TECHNICAL DOCUMENTATION: JOB ID: [id number] 2010 [employer]- All Rights Reserved Reading location - IP/workstation name: [email or web address]
== END ==
LOC: RAD 08:47
PROVIDERS: ATTEND Physician Assistant Medical
DX: C50.412 Malignant neoplasm of upper-outer quadrant of left female breast (principal)
CPT/HCPCS: 82565; 78306; 71260; 74177; A9503; Q9969

== ENCOUNTER → 2020-04-09 | Outpatient (CLI) | payer MEDICAID, MEDICARE ==
--- NOTE | 2020-04-09 13:30 | RADIOLOGY REPORT (SQ) ---
EXAM DESCRIPTION: NM MUGA REST IMAGES COMPLETED DATE/TIME: 04/09/2020 12:15 pm REASON FOR STUDY: CHEMOTHERAPY Z01.89 ENCOUNTER FOR OTHER SPECIFIED SPECIAL EXAMINATIONS Z08 ENCNT R FOR FOLLOW-UP EXAM AFTER TRTMT FOR MALIGNANT NEOP COMPARISON: 12/07/2019 RADIONUCLIDE AND DOSE: 25 mCi technetium 99m labeled red blood cells The route of agent administration: Intravenous TECHNIQUE: Following administration of the radionuclide, gated images of the heart are obtained in t hree projections. Left ventricular functional analysis performed. LIMITATIONS: None. FINDINGS: LEFT VENTRICULAR FUNCTION: EJECTION FRACTION: 63%. END-DIASTOLIC VOLUME: 107 mL. END-SYSTOLIC VOLUME: 43 mL. WALL MOTION: No focal wall motion abnormalities. OTHER: No other significant finding. IMPRESSION: NORMAL CARDIAC MUGA STUDY. NORMAL LEFT VENTRICULAR FUNCTION WITH VALUES ABOVE. TECHNICAL DOCUMENTATION: JOB ID: [id number] 2010 [employer]- All Rights Reserved Reading location - IP/workstation name: [email or web address]
== END ==
LOC: RAD 10:49
PROVIDERS: ATTEND Physician Assistant Medical
DX: Z01.89 Encounter for other specified special examinations (principal); Z08 Encounter for follow-up examination after completed treatment for malignant neoplasm
CPT/HCPCS: 78472; A9560; Q9969

== ENCOUNTER → 2020-06-11 | Outpatient (CLI) | payer MEDICAID, MEDICARE ==
--- NOTE | 2020-06-11 09:16 | RADIOLOGY REPORT (SQ) ---
EXAM DESCRIPTION: CT CHEST WITH; CT ABD/PELVIS WITH IV ONLY IMAGES COMPLETED DATE/TIME: 06/11/2020 8:22 am REASON FOR STUDY: BREAST CA C50.412 MALIG NEOPLASM OF UPPER-OUTER QUADRANT OF LEFT FEMAL CONTRAST TYPE AND DOSE: contrast/concentration: Isovue 350.00 mmol/ml; Total Contrast Delivered: 86. 0 ml; Total Saline Delivered: 40.0 ml RENAL FUNCTION: BUN 12, creatinine 0.6 COMPARISON: None. TECHNIQUE: CT scan of the chest performed using helical scanning technique with dynamic intravenous contrast injection. Images reviewed with lung, soft tissue and bone windows. Reconstructed coronal a nd sagittal MPR images reviewed. All images stored on PACS. All CT scanners at this facility use dose modulation, iterative reconstruction, and/or weight based d osing when appropriate to reduce radiation dose to as low as reasonably achievable (ALARA). [facility]: Dose Right [facility]: CareDose [facility]: Dose Right [facility]: Teradose 4D [facility]: AngelPrime RADIATION DOSE: CT Rad equipment meets quality standard of care and radiation dose reduction techniq ues were employed. CTDIvol: 4.4 - 4.5 mGy. DLP: 588 mGy-cm. . LIMITATIONS: None. FINDINGS: AXILLAE: No adenopathy. CHEST WALL: Prior left mastectomy. LUNGS: The right upper lobe soft tissue mass is slightly changed in morphology. It is slightly large r. This measures 2.9 x 4.3 cm on soft tissue windows. The left-sided subpleural opacities are stabl e in appearance. No appreciable change in size or configuration. No new nodules. PLEURA: No effusions. No calcifications. THYROID: Stable in appearance with 2 small nodules in the right lobe. HILAR AND MEDIASTINAL STRUCTURES: No identified masses or abnormal nodes. AORTA AND GREAT VESSELS: No aneurysm. No dissection. PULMONARY ARTERIES: No identified pulmonary emboli. Study not optimized for the pulmonary arteries. HEART: No pericardial effusion. HARDWARE AND LIFELINES: None. BONES: Stable in appearance occasional sclerotic lesion is noted. OTHER: No other significant finding. IMPRESSION: 1. The right upper lobe pulmonary nodule has increased in size and slightly changed in m orphology. It measures 2.9 x 4.3 cm in greatest diameter. 2. Left-sided subpleural opacities are stable in appearance. No new findings. COMPARISON: None. RADIATION DOSE: CT Rad equipment meets quality standard of care and radiation dose reduction techniq ues were employed. CTDIvol: 4.4 - 4.5 mGy. DLP: 588 mGy-cm. mGy. TECHNIQUE: CT scan of the abdomen and pelvis performed with intravenous and oral contrast using crissy miesha scanning technique with dynamic intravenous contrast injection. Images reviewed with lung, soft tissue and bone windows. Reconstructed coronal and sagittal MPR images reviewed. Delayed images for evaluation of the urinary system also acquired and evaluated. All images stored on PACS. All CT scanners at this facility use dose modulation, iterative reconstruction, and/or weight based d osing when appropriate to reduce radiation dose to as low as reasonably achievable (ALARA). [facility]: Dose Right [facility]: SureCare [facility]: Dose Right [facility]: Teradose 4D [facility]: AngelPrime FINDINGS: LIVER: Small stable cyst in the posterior right lobe. SPLEEN: Normal size. No focal lesions. PANCREAS: No masses. No significant calcifications. No adjacent inflammation or peripancreatic flui d collections. Pancreatic duct not dilated. GALLBLADDER: No identified stones by CT criteria. No inflammatory changes to suggest cholecystitis. ADRENAL GLANDS: No significant masses or asymmetry. RIGHT KIDNEY AND URETER: No solid masses. No significant calcifications. No hydronephrosis or hyd roureter. LEFT KIDNEY AND URETER: Stable left renal cyst. No significant calcifications. No hydronephrosis or hydroureter. AORTA AND VESSELS: No aneurysm. No dissection. Renal arteries, SMA, celiac without stenosis. RETROPERITONEUM: No retroperitoneal adenopathy, hemorrhage or masses. LARGE AND SMALL BOWEL: No dilatation. No masses. No wall thickening. APPENDIX: Not visualized. ABDOMINAL WALL: No hernia or masses. PERITONEAL CAVITY: No free air. No free fluid. No peritoneal implants or masses. PELVIS: No mass or free fluid. Normal bladder. BONES: Stable sclerotic lesion in the right iliac wing. OTHER: No other significant finding. IMPRESSION: Stable sclerotic lesion in the right iliac wing. No other significant findings. TECHNICAL DOCUMENTATION: JOB ID: [id number] Quality ID # [id number]: Final reports with documentation of one or more dose reduction techniques (e.g., Au tomated exposure control, adjustment of the mA and/or kV according to patient size, use of iterative reconstruction technique) 2010 [employer]- All Rights Reserved Reading location - IP/workstation name: [email or web address]
== END ==
LOC: RAD 08:13
PROVIDERS: ATTEND Internal Medicine
DX: C50.412 Malignant neoplasm of upper-outer quadrant of left female breast (principal); R91.1 Solitary pulmonary nodule; E04.1 Nontoxic single thyroid nodule; K76.89 Other specified diseases of liver
CPT/HCPCS: 71260; 74177

== ENCOUNTER → 2020-06-19 | Outpatient (CLI) | payer MEDICARE ==
--- NOTE | 2020-06-20 15:23 | RADIOLOGY REPORT (SQ) ---
EXAM DESCRIPTION: PET CT SKULL/THIGH IMAGES COMPLETED DATE/TIME: 06/19/2020 2:48 pm REASON FOR STUDY: MALIG NEOPLASM OF UPPER-OUTER QUADRANT OF LEFT FEMALE BREAST C50.412 MALIG NEOPLA SM OF UPPER-OUTER QUADRANT OF LEFT FEMAL COMPARISON: 04/03/2019, CT 06/11/20 RADIONUCLIDE AND DOSE: 11.89 mCi F18 FDG The route of agent administration: Intravenous FASTING BLOOD SUGAR: 94 mg/dl CONTRAST TYPE AND DOSE: No CT contrast given. TECHNIQUE: Blood glucose level was verified. Above dose of FDG was injected intravenously. 2-D seg mented attenuation correction images were obtained from the base of the skull to the midthighs. Nonc ontrast CT images were obtained for attenuation correction and fusion with emission images. CT image s were performed without oral or intravenous contrast and are not sensitive for parenchymal lesions. A series of overlapping emission PET images were obtained. Images reviewed and manipulated at [facility] work station by the radiologist. Images stored on PACS. LIMITATIONS: None. FINDINGS: HEAD AND NECK: No areas of abnormal metabolic activity in the soft tissues of the head and neck. CHEST: Avid uptake within the right upper lobe pulmonary mass measuring up to 2.9 x 4.3 cm (max SUV 1 7.2). This lesion demonstrated SUV of 7.4 on prior PET. Stable areas of pleural thickening and pare nchymal change within the anterior left upper lobe without significant increased uptake (max SUV 1.5) . No other discrete foci of pathologic uptake within the chest. ABDOMEN AND PELVIS: Background non focal hepatic activity max SUV 3.3. No other areas of pathologic uptake within the abdomen or pelvis. Expected physiologic activity within the gastrointestinal genit ourinary systems. PROXIMAL LOWER EXTREMITIES: No areas of abnormal metabolic activity in the soft tissues of the lower extremities. BONES: No abnormal metabolic activity in the visualized skeleton. ADDITIONAL CT FINDINGS: No acute findings. OTHER: No other significant findings. IMPRESSION: 1. Avid uptake within the previously described right upper lobe pulmonary mass measurin g 2.9 x 4.3 cm (max SUV 17.2) compatible with malignancy. This is stable from recent CT but increase d in size from prior PET-CT dated 04/03/2019. 2. No other areas of pathologic uptake suggestive of metastatic disease. TECHNICAL DOCUMENTATION: JOB ID: [id number] [employer]- All Rights Reserved Reading location - IP/workstation name: [email or web address]
== END ==
LOC: RAD 11:05
PROVIDERS: ATTEND Internal Medicine
DX: C50.412 Malignant neoplasm of upper-outer quadrant of left female breast (principal)
CPT/HCPCS: 78815; A9552